=== PATIENT | female | born 1970 | race Hispanic/Latino ===

== ENCOUNTER 2021-08-16 14:09 | Emergency (ER) | payer OTHER ==
--- OUTSIDE RECORDS SUMMARY | 2021-08-16 14:19 | XMS REPORT | Continuity of Care Document ---
:1970 Author Organization [facility] t Address [facility] Quentin Ortiz [address] [place] [address] Care Team Providers Name Role Phone Stefano DELGADO Primary Care Physician Unavailable Mat WRIGHT Attending Clinician Unavailable Jhonny SMITH, Stefano Attending Clinician Radiology Attending Clinician Unavailable RADIOLOGY Attending Clinician Unavailable Lab, Fam Pob I Attending Clinician Unavailable Stefano DELGADO Attending Clinician Unavailable Hitesh Baker DO Attending Clinician Pob, Lab Main Attending Clinician Unavailable Shavonne SMITH Attending Clinician PENNY Attending Clinician Unavailable Unknown Attending Clinician Unavailable Doctor Unassigned, Name Attending Clinician Unavailable SHAVONNE Attending Clinician Unavailable Provider, Urgent Care Attending Clinician Unavailable Smieon TRUCK FARMER Attending Clinician Mar GOOD Attending Clinician Unavailable DANNYNE Attending Clinician Unavailable Penny ALVAREZ Attending Clinician Lion SMITH, Alvino Attending Clinician Silas SMITH Attending Clinician PENNY Admitting Clinician Unavailable Payers Payer Name Policy Type Policy Number Effective Date Expiration Date [facility] [id number] 2020 00:00:00 [facility] - [id number] 2018 OUT OF STATE 00:00:00 Advance Directives Directive Decision Effective Termination Comments Source Date Date Healthcare Agents on N/A [facility] Agent Medical RelationshipCommunicationJose Branch [facility] [phone] (Mobile) Problems Condition Condition Condition Status Onset Resolution Last Treating Co mments Source Name Details Category Date Date Treatment Clinician Date Cervical Cervical Disease Active Unive rs spinal spinal 9-04 ity of stenosis stenosis 00:00: Medical Branch Chronic Chronic Disease Active Univers neck pain neck pain 7-31 ity of 00:00: Medical Branch Cervical Cervical Disease Active Unive rs radiculopa radiculopa 7-31 it y of thy thy 00:00: Medical Branch Dysmenorrh Dysmenorrh Disease Active 2017-09 U nivers ea ea 0-16 ity of 00:: Medical Branch Uterus, Uterus, Disease Active 2017-09 Univers adenomyosi adenomyosi 0-16 it y of s s 00:00: Medical Branch Allergic Allergic Disease Active Unive rs cough cough 9- ity of 00:00: Medical Branch Abdominal Abdominal Disease Active Uni vers pain pain 7-27 ity of 00:00: Medical [facility] Long-term Long-term Disease Active Uni vers use of use of 7-17 ity of Plaquenil Plaquenil [place] [facility] [place] Myalgia Myalgia Disease Active Univers 7-17 ity of 00:00: Medical [facility] Long-term Long-term Disease Active Uni vers use of use of 7-17 ity of Plaquenil Plaquenil 00:[place] [facility] [place] ALT (SGPT) ALT (SGPT) Disease Active U nivers level level 3-29 ity of raised raised 00:00: Medical Branch Prediabete Prediabete Disease Active U nivers s s 3-09 ity of 00:00: Medical Branch Onychomyco Onychomyco Disease Active Overview : Univers sis of sis of 3-08 bilateral ity of toenail toenail 00:00: great toenails Medical Branch Dyspareuni Dyspareuni Disease Active U nivers a in a in 3-08 ity of female female 00:00: Medical Branch 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 Family Family Disease Active 2016-09 Univers history of history of 0-29 it y of heart heart 00:00: [place] disease disease 00 Medical Branch Immunizati Immunizati Disease Active U nivers on on 06-09 ity of counseling counseling 00:00: [place] [facility] Immunizati Immunizati Disease Active U nivers on on 06-09 ity of counseling counseling 00:00: [place] [facility] Spinal Spinal Disease Active Univers pain pain 06-09 ity of 00:00: [place] 00 Medical Branch Cervical Cervical Disease Active Unive rs lymphadeno lymphadeno - it y of patricio patricio 00:00: [place] 00 Medical Branch Fatigue, Fatigue, Disease Active Unive rs unspecifie unspecifie 4-05 it y of d type d type 00:00: [place] [facility] Other Other Disease Active Univers depression depression 4-05 it y of 00:00: [place] 00 Medical Branch Chronic Chronic Disease Active Univers pain of pain of 4-05 ity of both knees both knees 00:00: [place] [facility] Positive Positive Disease Active Unive rs YOCASTA YOCASTA 3-07 ity of (antinucle (antinucle 00:00: [place] ar ar 00 Medical antibody) antibody) Bran ch 1:640 1:640 Arthralgia Arthralgia Disease Active U nivers of of 3-05 ity of multiple multiple 00:00: [place] joints joints 00 Medical Branch Fibromyalg Fibromyalg Disease Active U nivers ia ia 3-05 ity of 00:00: [place] [facility] Perimenopa Perimenopa Disease Active U nivers usal usal 2-07 ity of vasomotor vasomotor 00:[place] symptoms [facility] BV BV Disease Active Univers (bacterial (bacterial 10-12 it y of vaginosis) vaginosis) 00:00: [place] [facility] S/P tubal S/P tubal Disease Active Uni vers ligation ligation 1-24 ity of 00:00: [address] Branch Obesity Obesity Disease Active Univers (BMI (BMI 1-24 ity of 35.0-39.9 35.0-39.9 00:[place]: [place] without without 00 Medical comorbidit comorbidit Br anch y) y) Abnormal Abnormal Disease Active Unive rs uterine uterine 1-24 ity of bleeding bleeding 00:00: [address] Abdominal Abdominal Disease Active Uni vers pain, left pain, left 1-24 it y of lower lower 00:00: [place] quadrant quadrant 00 [facility] Decreased Decreased Disease Active Uni vers libido libido 1-24 ity of 00:00: [place] [facility] S/P tubal S/P tubal Disease Active Uni vers ligation ligation 1-24 ity of 00:00: [address] History of History of Disease Active U nivers 3 3 1-24 it y of sections sections 00:00: [address] Depression Depression Disease Active U nivers 1-13 ity of 00:00: [place] [facility] Branch Acanthosis Acanthosis Disease Active U nivers nigricans nigricans 1-13 ity of 00:00: [address] Allergies, Adverse Reactions, Alerts Allergy Allergy Status Severity Reaction(s) Onset Inactive Treating Comm ents Source Name Type Date Date Clinician NO KNOWN Drug Active Univers ALLERGIE Class ity of S [facility] Family History Family Member Diagnosis Comments Start Date Stop Date Source Father [facility] Mother Cancer [facility] Other Breast Cancer [facility] Sister Cancer [facility] Family member Colon Cancer Universit y of [facility] Family member Ovarian Cancer Univers ity [facility] Family member Uterine Cancer Univers ity of [place] [facility] Social History Social Habit Start Date Stop Date Quantity Comments Source Exposure to Not sure University of SARS-CoV-2 [place] Medical (event) Branch Alcohol intake 2020-12-01 2020-12-01 Current drinker Unive rsity of 00:00:00 00:00:00 of alcohol [place] Medical (finding) Branch Tobacco use and 2020-12-01 2020-12-01 Never used Universit y of exposure 00:00:00 00:00:00 [facility] Alcohol Comment 2019-10-10 2019-10-10 rare Universit y of 00:00:00 00:00:00 [facility] History of 2010-09-12 Cigarette Smoker Universi ty of tobacco use 00:00:00 [facility] [birth year] Universit y of 00:00:00 00:00:00 [facility] Smoking Status Start Date Stop Date Source Former smoker 2020-12-01 00:00:00 2020-12-01 00:00:00 Universi ty of [facility] Medications Ordered Filled Start Stop Current Ordering Indication Dosage Frequency Signature Comments Components Source Medication Medication Date Date Medication? Clinician (SIG) Name Name traMADoL 50 Yes 2745 TAKE 1 Univ ers mg tablet 5-23 TABLET BY ity o f 00:00: MOUTH [place] 00 TWICE Medical DAILY Branch NEEDED Indication s: chronic pain traMADoL 50 2020-0 Yes 2745 TAKE 1 Univ ers mg tablet 3-22 TABLET BY ity o f 00:00: MOUTH [place] 00 TWICE Medical DAILY Branch NEEDED Indication s: chronic pain traMADoL 50 2020-0 Yes 2745 TAKE 1 Univ ers mg tablet 3-22 TABLET BY ity o f 00:00: MOUTH [place] 00 TWICE Medical DAILY Branch NEEDED Indication s: chronic pain traMADoL 50 2020-0 Yes 2745 TAKE 1 Univ ers mg tablet 3-22 TABLET BY ity o f 00:00: MOUTH [place] 00 TWICE Medical DAILY Branch NEEDED Indication s: chronic pain traMADoL 50 2020-0 Yes 2745 TAKE 1 Univ ers mg tablet 3-22 TABLET BY ity o f 00:00: MOUTH [place] 00 TWICE Medical DAILY Branch NEEDED Indication s: chronic pain traMADoL 50 2020-0 Yes 2745 TAKE 1 Univ ers mg tablet 3-22 TABLET BY ity o f 00:00: MOUTH [place] 00 TWICE Medical DAILY Branch NEEDED Indication s: chronic pain traMADoL 50 Yes 2745 TAKE 1 Univ ers mg tablet 3-22 TABLET BY ity o f 00:00: MOUTH [place] 00 TWICE Medical DAILY Branch NEEDED Indication s: chronic pain traMADoL 50 2020-0 2020- No 2745 TAKE 1 Uni vers mg tablet 3-22 05-23 TABLET BY ity of 00:00: 00:00 MOUTH [place] 00 :00 TWICE Medical DAILY Branch NEEDED Indication s: chronic pain traMADoL 50 2019-09 Yes 2745 TAKE 1 Univ ers mg tablet 2-22 TABLET BY ity o f 00:00: MOUTH [place] 00 TWICE Medical DAILY Branch NEEDED Indication s: chronic pain traMADoL 50 2019-09 Yes 2745 TAKE 1 Univ ers mg tablet 2-22 TABLET BY ity o f 00:00: MOUTH [place] 00 TWICE Medical DAILY Branch NEEDED Indication s: chronic pain traMADoL 50 2019-09 Yes 2745 TAKE 1 Univ ers mg tablet 2-22 TABLET BY ity o f 00:00: MOUTH [place] 00 TWICE Medical DAILY Branch NEEDED Indication s: chronic pain traMADoL 50 2019-09 Yes 2745 TAKE 1 Univ ers mg tablet 2-22 TABLET BY ity o f 00:00: MOUTH [place] 00 TWICE Medical DAILY Branch NEEDED Indication s: chronic pain traMADoL 50 2019-09 Yes 2745 TAKE 1 Univ ers mg tablet 2-22 TABLET BY ity o f 00:00: MOUTH [place] 00 TWICE Medical DAILY Branch NEEDED Indication s: chronic pain traMADoL 50 2019-09 Yes 2745 TAKE 1 Univ ers mg tablet 2-22 TABLET BY ity o f 00:00: MOUTH [place] 00 TWICE Medical DAILY Branch NEEDED Indication s: chronic pain traMADoL 50 2019-09 Yes 2745 TAKE 1 Univ ers mg tablet 2-22 TABLET BY ity o f 00:00: MOUTH [place] 00 TWICE Medical DAILY Branch NEEDED Indication s: chronic pain traMADoL 50 2019-09 Yes 2745 TAKE 1 Univ ers mg tablet 2-22 TABLET BY ity o f 00:00: MOUTH [place] 00 TWICE Medical DAILY Branch NEEDED Indication s: chronic pain traMADoL 50 2019-09 Yes 2745 TAKE 1 Univ ers mg tablet 2-22 TABLET BY ity o f 00:00: MOUTH [place] 00 TWICE Medical DAILY Branch NEEDED Indication s: chronic pain traMADoL 50 2019-09 Yes 2745 TAKE 1 Univ ers mg tablet 2-22 TABLET BY ity o f 00:00: MOUTH [place] 00 TWICE Medical DAILY Branch NEEDED Indication s: chronic pain traMADoL 50 2019-09- No 2745 TAKE 1 Uni vers mg tablet 11-03- TABLET BY ity of 00:00: 00:00 MOUTH [place] 00 :00 TWICE Medical DAILY Branch NEEDED Indication s: chronic pain traMADoL 50 2019-09- No 2745 TAKE 1 Uni vers mg tablet 11-03- TABLET BY ity of 00:00: 00:00 MOUTH [place] 00 :00 TWICE Medical DAILY Branch NEEDED Indication s: chronic pain traMADoL 50 2019-09- No 2745 TAKE 1 Uni vers mg tablet 2- TABLET BY ity of 00:00: 00:00 MOUTH [place] 00 :00 TWICE Medical DAILY Branch NEEDED Indication s: chronic pain ergocalcife 2020-1 Yes [id number] Take Univ ers rol, 2-12 50,000 ity of vitamin d2, 00:00: Units [place] 1,250 mcg 00 mouth Medical (50,000 weekly. Branch unit) capsule ergocalcife 2020-1 Yes [id number] Take Univ ers rol, 2-12 50,000 ity of vitamin d2, 00:00: Units [place] 1,250 mcg 00 mouth Medical (50,000 weekly. Branch unit) capsule ergocalcife 2020-1 Yes [id number] Take Univ ers rol, 2-12 50,000 ity of vitamin d2, 00:00: Units by [place] 1,250 mcg 00 mouth Medical (50,000 weekly. Branch unit) capsule ergocalcife 2020-1 Yes [id number] Take Univ ers rol, 2-12 50,000 ity of vitamin d2, 00:00: Units by [place] 1,250 mcg 00 mouth Medical (50,000 weekly. Branch unit) capsule ergocalcife 2020-1 Yes [id number] Take Univ ers rol, 2-12 50,000 ity of vitamin d2, 00:00: Units by [place] 1,250 mcg 00 mouth Medical (50,000 weekly. Branch unit) capsule ergocalcife 2020-1 Yes [id number] Take Univ ers rol, 2-12 50,000 ity of vitamin d2, 00:00: Units by [place] 1,250 mcg 00 mouth Medical (50,000 weekly. Branch unit) capsule ergocalcife 2020-1 Yes [id number] Take Univ ers rol, 2-12 50,000 ity of vitamin d2, 00:00: Units [place] 1,250 mcg 00 mouth Medical (50,000 weekly. Branch unit) capsule ergocalcife 2020-1 Yes [id number] Take Univ ers rol, 2-12 50,000 ity of vitamin d2, 00:00: Units by [place] 1,250 mcg 00 mouth Medical (50,000 weekly. Branch unit) capsule ergocalcife 2020-1 Yes [id number] Take Univ ers rol, 2-12 50,000 ity of vitamin d2, 00:00: Units by [place] 1,250 mcg 00 mouth Medical (50,000 weekly. Branch unit) capsule ergocalcife 2020-1 Yes [id number] Take Univ ers rol, 2-12 50,000 ity of vitamin d2, 00:00: Units by [place] 1,250 mcg 00 mouth Medical (50,000 weekly. Branch unit) capsule ergocalcife 2020-1 Yes [id number] Take Univ ers rol, 2-12 50,000 ity of vitamin d2, 00:00: Units by [place] 1,250 mcg 00 mouth Medical (50,000 weekly. Branch unit) capsule ergocalcife 2020-1 Yes [id number] Take Univ ers rol, 2-12 50,000 ity of vitamin d2, 00:00: Units by [place] 1,250 mcg 00 mouth Medical (50,000 weekly. Branch unit) capsule ergocalcife 2020-1 Yes [id number] Take Univ ers rol, 2-12 50,000 ity of vitamin d2, 00:00: Units by [place] 1,250 mcg 00 mouth Medical (50,000 weekly. Branch unit) capsule ergocalcife 2020-1 Yes [id number] Take Univ ers rol, 2-12 50,000 ity of vitamin d2, 00:00: Units by [place] 1,250 mcg 00 mouth Medical (50,000 weekly. Branch unit) capsule ergocalcife 2020-1 Yes [id number] Take Univ ers rol, 2-12 50,000 ity of vitamin d2, 00:00: Units by [place] 1,250 mcg 00 mouth Medical (50,000 weekly. Branch unit) capsule ergocalcife 2020-1 Yes [id number] Take Univ ers rol, 2-12 50,000 ity of vitamin d2, 00:00: Units by [place] 1,250 mcg 00 mouth Medical (50,000 weekly. Branch unit) capsule ergocalcife 2019- Yes [id number] Take [facility] ers rol, 2-12 50,000 ity of vitamin d2, 00:00: Units by [place] 1,250 mcg 00 mouth Medical (50,000 weekly. Branch unit) capsule naproxen 2019-09 2020- No [id number] 500mg Take 1 U nivers 500 mg 09-13 11-17 tablet by ity of tablet 00:00: 05:59 mouth 2 [place] 00 :00 (two) Medical times Branch daily with meals for 14 days. TRAMADOL 50 2019-0 Yes [id number] TAKE 1 Univers mg tablet 9-21 TABLET BY ity o f 00:00: MOUTH [place] 00 TWICE Medical DAILY Branch NEEDED TRAMADOL 50 2019-0 Yes [id number] TAKE 1 Univers mg tablet 9-21 TABLET BY ity o f 00:00: MOUTH [place] 00 TWICE Medical DAILY Branch NEEDED TRAMADOL 50 2019-0 Yes [id number] TAKE 1 Univers mg tablet 9-21 TABLET BY ity o f 00:00: MOUTH [place] 00 TWICE Medical DAILY Branch NEEDED TRAMADOL 50 2020-0 Yes [id number] TAKE 1 Univers mg tablet 9-21 TABLET BY ity o f 00:00: MOUTH [place] 00 TWICE Medical DAILY Branch NEEDED TRAMADOL 50 2020-0 Yes [id number] TAKE 1 Univers mg tablet 9-21 TABLET BY ity o f 00:00: MOUTH [place] 00 TWICE Medical DAILY Branch NEEDED TRAMADOL 50 2019-0 2020- No [id number] TAKE 1 Univers mg tablet 9-21 12-22 TABLET BY ity of 00:00: 00:00 MOUTH [place] 00 :00 TWICE Medical DAILY Branch NEEDED TRAMADOL 50 2020-0 2020- No [id number] TAKE 1 Univers mg tablet 9-21 12-22 TABLET BY ity of 00:00: 00:00 MOUTH [place] 00 :00 TWICE Medical DAILY Branch NEEDED MONTELUKAST 2020-0 Yes [id number] 10mg TAKE 1 Univers 10 mg 8-06 TABLET BY ity of tablet 00:00: MOUTH [place] 00 EVERY Medical EVENING Branch MONTELUKAST 2020-0 Yes [id number] 10mg TAKE 1 Univers 10 mg 8-06 TABLET BY ity of tablet 00:00: MOUTH [place] 00 EVERY Medical EVENING Branch MONTELUKAST 2020-0 Yes [id number] 10mg TAKE 1 Univers 10 mg 8-06 TABLET BY ity of tablet 00:00: MOUTH [place] 00 EVERY Medical EVENING Branch MONTELUKAST 2020-0 Yes [id number] 10mg TAKE 1 Univers 10 mg 8-06 TABLET BY ity of tablet 00:00: MOUTH 00 EVERY Medical EVENING Branch MONTELUKAST 2020-0 Yes [id number] 10mg TAKE 1 Univers 10 mg 8-06 TABLET BY ity of tablet 00:00: MOUTH [place] 00 EVERY Medical EVENING Branch MONTELUKAST 2020-0 Yes [id number] 10mg TAKE 1 Univers 10 mg 8-06 TABLET BY ity of tablet 00:00: MOUTH 00 EVERY Medical EVENING Branch MONTELUKAST 2020-0 Yes [id number] 10mg TAKE 1 Univers 10 mg 8-06 TABLET BY ity of tablet 00:00: MOUTH 00 EVERY Medical EVENING Branch MONTELUKAST 2020-0 2020- No [id number] 10mg TAKE 1 Univers 10 mg 8-06 12-22 TABLET BY ity of tablet 00:00: 00:00 MOUTH [place] 00 :00 EVERY Medical EVENING Branch MONTELUKAST 2020-0 2020- No [id number] 10mg TAKE 1 Univers 10 mg 8-06 12-22 TABLET BY ity of tablet 00:00: 00:00 MOUTH [place] 00 :00 EVERY Medical EVENING Branch buPROPion 2020-0 Yes [id number] 200mg Take 1 Univers 200 mg 12 7-30 tablet by ity o f hr tablet 00:00: mouth 2 (two) Medical times Branch daily. methocarbam 2020-0 Yes [id number] 500mg Take 1 Univers ol 500 mg 7-30 tablet by ity o f tablet 00:00: mouth 4 (four) Medical times Branch daily as needed (muscle pain or spasm). buPROPion 2020-0 Yes [id number] 200mg Take 1 Univers 200 mg 12 7-30 tablet by ity o f hr tablet 00:00: mouth 2 00 (two) Medical times Branch daily. methylPREDN 2020-0 Yes [id number] Follow Univers ISolone 4 7-30 package ity of mg tablets 00:00: directions [place] [facility] methocarbam 2020-0 Yes [id number] 500mg Take 1 Univers ol 500 mg 7-30 tablet by ity o f tablet 00:00: mouth 4 (four) Medical times Branch daily as needed (muscle pain or spasm). buPROPion 2020-0 Yes [id number] 200mg Take 1 Univers 200 mg 12 7-30 tablet by ity o f hr tablet 00:00: mouth 2 (two) Medical times Branch daily. methylPREDN 2020-0 Yes [id number] Follow Univers ISolone 4 7-30 package ity of mg tablets 00:00: directions [facility] Branch methocarbam 2020-0 Yes [id number] 500mg Take 1 Univers ol 500 mg 7-30 tablet by ity o f tablet 00:00: mouth (four) Medical times Branch daily as needed (muscle pain or spasm). buPROPion 2020-0 Yes [id number] 200mg Take 1 Univers 200 mg 12 7-30 tablet by ity o f hr tablet 00:00: mouth 2 (two) Medical times Branch daily. methylPREDN 2020-0 Yes [id number] Follow Univers ISolone 4 7-30 package ity of mg tablets 00:00: [facility] Branch methocarbam 2020-0 Yes [id number] 500mg Take 1 Univers ol 500 mg 7-30 tablet by ity o f tablet 00:00: mouth () Medical times Branch daily as needed (muscle pain or spasm). buPROPion 2020-0 Yes [id number] 200mg Take 1 Univers 200 mg 12 7-30 tablet by ity o f hr tablet 00:00: mouth (two) Medical times Branch daily. methylPREDN 2020-0 Yes [id number] Follow Univers ISolone 4 7-30 package ity of mg tablets 00:00: [facility] Branch methocarbam 2020-0 Yes [id number] 500mg Take 1 Univers ol 500 mg 7-30 tablet by ity o f tablet 00:00: mouth (four) Medical times Branch daily as needed (muscle pain or spasm). buPROPion 2020-0 Yes [id number] 200mg Take 1 Univers 200 mg 12 7-30 tablet by ity o f hr tablet 00:00: mouth 2 (two) Medical times Branch daily. methylPREDN 2020-0 Yes [id number] Follow Univers ISolone 4 7-30 package ity of mg tablets 00:00: [facility] methocarbam 2020-0 Yes [id number] 500mg Take 1 Univers ol 500 mg 7-30 tablet by ity o f tablet 00:00: mouth (four) Medical times Branch daily as needed (muscle pain or spasm). buPROPion 2020-0 Yes [id number] 200mg Take 1 Univers 200 mg 12 7-30 tablet by ity o f hr tablet 00:00: mouth 2 (two) Medical times Branch daily. methylPREDN 2020-0 Yes [id number] Follow Univers ISolone 4 7-30 package ity of mg tablets 00:00: [facility] Branch methocarbam 2020-0 Yes [id number] 500mg Take 1 Univers ol 500 mg 7-30 tablet by ity o f tablet 00:00: mouth (four) Medical times Branch daily as needed (muscle pain or spasm). buPROPion 2020-0 Yes [id number] 200mg Take 1 Univers 200 mg 12 7-30 tablet by ity o f hr tablet 00:00: mouth (two) Medical times Branch daily. methylPREDN 2020-0 Yes [id number] Follow Univers ISolone 4 7-30 package ity of mg tablets 00:00: [facility] Branch methocarbam 2020-0 Yes [id number] 500mg Take 1 Univers ol 500 mg 7-30 tablet by ity o f tablet 00:00: mouth (four) Medical times [place] daily as needed (muscle pain or spasm). buPROPion 2020-0 Yes [id number] 200mg Take 1 Univers 200 mg 12 7-30 tablet by ity o f hr tablet 00:00: mouth (two) Medical times Branch daily. methylPREDN 2020-0 Yes [id number] Follow Univers ISolone 4 7-30 package ity of mg tablets 00:00: [facility] Branch methocarbam 2020-0 Yes [id number] 500mg Take 1 Univers ol 500 mg 7-30 tablet by ity o f tablet 00:00: mouth (four) Medical times Branch daily as needed (muscle pain or spasm). buPROPion 2020-0 Yes [id number] 200mg Take 1 Univers 200 mg 12 7-30 tablet by ity o f hr tablet 00:00: mouth 2 (two) Medical times Branch daily. methylPREDN 2020-0 Yes [id number] Follow Univers ISolone 4 7-30 package ity of mg tablets 00:00: [facility] Medical Branch methocarbam 2020-0 Yes [id number] 500mg Take 1 Univers ol 500 mg 7-30 tablet by ity o f tablet 00:00: mouth (four) Medical times Branch daily as needed (muscle pain or spasm). buPROPion 2020-0 Yes [id number] 200mg Take 1 Univers 200 mg 12 7-30 tablet by ity o f hr tablet 00:00: mouth (two) Medical times Branch daily. methylPREDN 2020-0 Yes [id number] Follow Univers ISolone 4 7-30 package ity of mg tablets 00:00: [facility] Branch methocarbam 2020-0 Yes [id number] 500mg Take 1 Univers ol 500 mg 7-30 tablet by ity o f tablet 00:00: mouth () Medical times Branch daily as needed (muscle pain or spasm). buPROPion 2020-0 Yes [id number] 200mg Take 1 Univers 200 mg 12 7-30 tablet by ity o f hr tablet 00:00: mouth (two) Medical times Branch daily. methylPREDN 2020-0 Yes [id number] Follow Univers ISolone 4 7-30 package ity of mg tablets 00:00: [facility] Medical Branch methocarbam 2020-0 Yes [id number] 500mg Take 1 Univers ol 500 mg 7-30 tablet by ity o f tablet 00:00: mouth (four) Medical times Branch daily as needed (muscle pain or spasm). buPROPion 2020-0 Yes [id number] 200mg Take 1 Univers 200 mg 12 7-30 tablet by ity o f hr tablet 00:00: mouth (two) Medical times Branch daily. methocarbam 2020-0 Yes [id number] 500mg Take 1 Univers ol 500 mg 7-30 tablet by ity o f tablet 00:00: mouth (four) Medical times Branch daily as needed (muscle pain or spasm). buPROPion 2020-0 Yes [id number] 200mg Take 1 Univers 200 mg 12 7-30 tablet by ity o f hr tablet 00:00: mouth (two) Medical times Branch daily. methocarbam 2020-0 Yes [id number] 500mg Take 1 Univers ol 500 mg 7-30 tablet by ity o f tablet 00:00: mouth (four) Medical times Branch daily as needed (muscle pain or spasm). buPROPion 2020-0 Yes [id number] 200mg Take 1 Univers 200 mg 12 7-30 tablet by ity o f hr tablet 00:00: mouth (two) Medical times Branch daily. methocarbam 2020-0 Yes [id number] 500mg Take 1 Univers ol 500 mg 7-30 tablet by ity o f tablet 00:00: mouth (four) Medical times Branch daily as needed (muscle pain or spasm). buPROPion 2020-0 Yes [id number] 200mg Take 1 Univers 200 mg 12 7-30 tablet by ity o f hr tablet 00:00: mouth (two) Medical times Branch daily. methocarbam 2020-0 Yes [id number] 500mg Take 1 Univers ol 500 mg 7-30 tablet by ity o f tablet 00:00: mouth (four) Medical times Branch daily as needed (muscle pain or spasm). buPROPion 2020-0 Yes [id number] 200mg Take 1 Univers 200 mg 12 7-30 tablet by ity o f hr tablet 00:00: mouth (two) Medical times Branch daily. methocarbam 2020-0 Yes [id number] 500mg Take 1 Univers ol 500 mg 7-30 tablet by [facility] o f tablet 00:00: mouth (four) Medical times Branch daily as needed (muscle pain or spasm). buPROPion 2020-0 Yes [id number] 200mg Take 1 [facility] 200 mg 12 7-30 tablet by [facility] o f hr tablet 00:00: mouth (two) Medical times Branch daily. methocarbam 2020-0 Yes [id number] 500mg Take 1 [facility] ol 500 mg 7-30 tablet by ity o f tablet 00:00: mouth (four) Medical times Branch daily as needed (muscle pain or spasm). buPROPion 2020-0 Yes [id number] 200mg Take 1 [facility] 200 mg 12 7-30 tablet by ity o f hr tablet 00:00: mouth (two) Medical times Branch daily. methocarbam 2020-0 Yes [id number] 500mg Take 1 [facility] ol 500 mg 7-30 tablet by ity o f tablet 00:00: mouth (four) Medical times Branch daily as needed (muscle pain or spasm). buPROPion 2020-0 Yes [id number] 200mg Take 1 [facility] 200 mg 12 7-30 tablet by ity o f hr tablet 00:00: mouth (two) Medical times Branch daily. methocarbam 2020-0 Yes [id number] 500mg Take 1 [facility] ol 500 mg 7-30 tablet by ity o f tablet 00:00: mouth (four) Medical times Branch daily as needed (muscle pain or spasm). buPROPion 2020-0 Yes [id number] 200mg Take 1 [facility] 200 mg 12 7-30 tablet by ity o f hr tablet 00:00: mouth (two) Medical times Branch daily. methocarbam 2020-0 Yes [id number] 500mg Take 1 [facility] ol 500 mg 7-30 tablet by ity o f tablet 00:00: mouth (four) Medical times Branch daily as needed (muscle pain or spasm). buPROPion 2020-0 Yes [id number] 200mg Take 1 [facility] 200 mg 12 7-30 tablet by ity o f hr tablet 00:00: mouth (two) Medical times Branch daily. methocarbam 2020-0 Yes [id number] 500mg Take 1 [facility] ol 500 mg 7-30 tablet by ity o f tablet 00:00: mouth (four) Medical times Branch daily as needed (muscle pain or spasm). buPROPion 2020-0 Yes [id number] 200mg Take 1 [facility] 200 mg 12 7-30 tablet by ity o f hr tablet 00:00: mouth (two) Medical times Branch daily. methocarbam 2020-0 Yes [id number] 500mg Take 1 [facility] ol 500 mg 7-30 tablet by ity o f tablet 00:00: mouth (four) Medical times Branch daily as needed (muscle pain or spasm). buPROPion 2020-0 Yes [id number] 200mg Take 1 [facility] 200 mg 12 7-30 tablet by ity o f hr tablet 00:00: mouth (two) Medical times Branch daily. methocarbam 2020-0 Yes [id number] 500mg Take 1 [facility] ol 500 mg 7-30 tablet by ity o f tablet 00:00: mouth (four) Medical times Branch daily as needed (muscle pain or spasm). buPROPion 2020-0 Yes [id number] 200mg Take 1 [facility] 200 mg 12 7-30 tablet by ity o f hr tablet 00:00: mouth 2 (two) Medical times Branch daily. methocarbam 2020-0 Yes [id number] 500mg Take 1 [facility] ol 500 mg 7-30 tablet by ity o f tablet 00:00: mouth (four) Medical times Branch daily as needed (muscle pain or spasm). buPROPion 2020-0 Yes [id number] 200mg Take 1 [facility] 200 mg 12 7-30 tablet by ity o f hr tablet 00:00: mouth (two) Medical times Branch daily. methocarbam 2020-0 Yes [id number] 500mg Take 1 [facility] ol 500 mg 7-30 tablet by ity o f tablet 00:00: mouth (four) Medical times Branch daily as needed (muscle pain or spasm). buPROPion 2020-0 Yes [id number] 200mg Take 1 [facility] 200 mg 12 7-30 tablet by ity o f hr tablet 00:00: mouth (two) Medical times Branch daily. methocarbam 2020-0 Yes [id number] 500mg Take 1 [facility] ol 500 mg 7-30 tablet by ity o f tablet 00:00: mouth (four) Medical times Branch daily as needed (muscle pain or spasm). buPROPion 2020-0 Yes [id number] 200mg Take 1 [facility] 200 mg 12 7-30 tablet by ity o f hr tablet 00:00: mouth (two) Medical times Branch daily. methocarbam 2020-0 Yes [id number] 500mg Take 1 [facility] ol 500 mg 7-30 tablet by ity o f tablet 00:00: mouth (four) Medical times Branch daily as needed (muscle pain or spasm). methylPREDN 2020-0 2020- No [id number] Follow [facility] ISolone 4 7-30 09-02 package [facility] of mg tablets 00:00: 00:00 directions [place] 00 :00 Medical Branch methylPREDN 2020-0 2020- No [id number] Follow [facility] ISolone 4 7-30 09-02 package [facility] of mg tablets 00:00: 00:00 directions [place] 00 :00 Medical Branch TRAZODONE 2020-0 Yes [id number] TAKE 1/2 [facility] 50 mg 7-01 TO 1 [facility] of tablet 00:00: TABLET BY [place] 00 MOUTH AT Medical BEDTIME Branch NEEDED FOR INSOMNIA TRAZODONE 2020-0 Yes [id number] TAKE 1/2 [facility] 50 mg 7-01 TO 1 [facility] of tablet 00:00: TABLET BY [place] 00 MOUTH AT Medical BEDTIME Branch NEEDED FOR INSOMNIA TRAZODONE 2020-0 Yes [id number] TAKE 1/2 [facility] 50 mg 7-01 TO 1 [facility]y of tablet 00:00: TABLET BY [place] 00 MOUTH AT Medical BEDTIME Branch NEEDED FOR INSOMNIA TRAZODONE 2020-0 Yes [id number] TAKE 1/2 [facility] 50 mg 7-01 TO 1 [facility] of tablet 00:00: TABLET BY [place] 00 MOUTH AT Medical BEDTIME Branch NEEDED FOR INSOMNIA TRAZODONE 2020-0 Yes [id number] TAKE 1/2 [facility] 50 mg 7-01 TO 1 [facility] of tablet 00:00: TABLET BY [place] 00 MOUTH AT Medical BEDTIME Branch NEEDED FOR INSOMNIA TRAZODONE 2020-0 Yes [id number] TAKE 1/2 [facility] 50 mg 7-01 TO 1 [facility]y of tablet 00:00: TABLET BY [place] 00 MOUTH AT Medical BEDTIME Branch NEEDED FOR INSOMNIA TRAZODONE 2020-0 Yes [id number] TAKE 1/2 [facility] 50 mg 7-01 TO 1 [facility]y of tablet 00:00: TABLET BY [place] 00 MOUTH AT Medical BEDTIME Branch NEEDED FOR INSOMNIA TRAZODONE 2020-0 Yes [id number] TAKE 1/2 [facility] 50 mg 7-01 TO 1 [facility] of tablet 00:00: TABLET BY [place] 00 MOUTH AT Medical BEDTIME Branch NEEDED FOR INSOMNIA TRAZODONE 2020-0 Yes [id number] TAKE 1/2 [facility] 50 mg 7-01 TO 1 [facility] of tablet 00:00: TABLET BY [place] 00 MOUTH AT Medical BEDTIME Branch NEEDED FOR INSOMNIA TRAZODONE 2020-0 Yes [id number] TAKE 1/2 [facility] 50 mg 7-01 TO 1 [facility] of tablet 00:00: TABLET BY [place] 00 MOUTH AT Medical BEDTIME Branch NEEDED FOR INSOMNIA TRAZODONE 2020-0 Yes [id number] TAKE 1/2 [facility] 50 mg 7-01 TO 1 [facility] of tablet 00:00: TABLET BY [place] 00 MOUTH AT Medical BEDTIME Branch NEEDED FOR INSOMNIA TRAZODONE 2020-0 Yes [id number] TAKE 1/2 [facility] 50 mg 7-01 TO 1 [facility] of tablet 00:00: TABLET BY [place] 00 MOUTH AT Medical BEDTIME Branch NEEDED FOR INSOMNIA TRAZODONE 2020-0 Yes [id number] TAKE 1/2 [facility] 50 mg 7-01 TO 1 [facility] of tablet 00:00: TABLET BY [place] 00 MOUTH AT Medical BEDTIME Branch NEEDED FOR INSOMNIA TRAZODONE 2020-0 Yes [id number] TAKE 1/2 [facility] 50 mg 7-01 TO 1 [facility]y of tablet 00:00: TABLET BY [place] 00 MOUTH AT Medical BEDTIME Branch NEEDED FOR INSOMNIA TRAZODONE 2020-0 Yes [id number] TAKE 1/2 [facility] 50 mg 7-01 TO 1 [facility]y of tablet 00:00: TABLET BY [place] 00 MOUTH AT Medical BEDTIME Branch NEEDED FOR INSOMNIA TRAZODONE 2020-0 Yes [id number] TAKE 1/2 [facility] 50 mg 7-01 TO 1 [facility]y of tablet 00:00: TABLET BY [place] 00 MOUTH AT Medical BEDTIME Branch NEEDED FOR INSOMNIA TRAZODONE 2020-0 Yes [id number] TAKE 1/2 [facility] 50 mg 7-01 TO 1 [facility]y of tablet 00:00: TABLET BY [place] 00 MOUTH AT Medical BEDTIME Branch NEEDED FOR INSOMNIA TRAZODONE 2020-0 Yes [id number] TAKE 1/2 [facility] 50 mg 7-01 TO 1 [facility]y of tablet 00:00: TABLET BY [place] 00 MOUTH AT Medical BEDTIME Branch NEEDED FOR INSOMNIA TRAZODONE 2020-0 Yes [id number] TAKE 1/2 [facility] 50 mg 7-01 TO 1 [facility]y of tablet 00:00: TABLET BY [place] 00 MOUTH AT Medical BEDTIME Branch NEEDED FOR INSOMNIA TRAZODONE 2020-0 Yes [id number] TAKE 1/2 [facility] 50 mg 7-01 TO 1 [facility]y of tablet 00:00: TABLET BY [place] 00 MOUTH AT Medical BEDTIME Branch NEEDED FOR INSOMNIA TRAZODONE 2020-0 Yes [id number] TAKE 1/2 [facility] 50 mg 7-01 TO 1 [facility]y of tablet 00:00: TABLET BY [place] 00 MOUTH AT Medical BEDTIME Branch NEEDED FOR INSOMNIA TRAZODONE 2020-0 Yes [id number] TAKE 1/2 [facility] 50 mg 7-01 TO 1 [facility]y of tablet 00:00: TABLET BY [place] 00 MOUTH AT Medical BEDTIME Branch NEEDED FOR INSOMNIA TRAZODONE 2020-0 Yes [id number] TAKE 1/2 [facility] 50 mg 7-01 TO 1 [facility] of tablet 00:00: TABLET BY [place] 00 MOUTH AT Medical BEDTIME Branch NEEDED FOR INSOMNIA TRAZODONE 2020-0 Yes [id number] TAKE 1/2 [facility] 50 mg 7-01 TO 1 [facility] of tablet 00:00: TABLET BY [place] 00 MOUTH AT Medical BEDTIME Branch NEEDED FOR INSOMNIA TRAZODONE 2020-0 Yes [id number] TAKE 1/2 [facility] 50 mg 7-01 TO 1 [facility]y of tablet 00:00: TABLET BY [place] 00 MOUTH AT Medical BEDTIME Branch NEEDED FOR INSOMNIA TRAZODONE 2020-0 Yes [id number] TAKE 1/2 [facility] 50 mg 7-01 TO 1 [facility] of tablet 00:00: TABLET BY [place] MOUTH AT Medical BEDTIME Branch NEEDED FOR INSOMNIA TRAZODONE 2020-0 Yes [id number] TAKE 1/2 [facility] 50 mg 7-01 TO 1 [facility]y of tablet 00:00: TABLET BY [place] 00 MOUTH AT Medical BEDTIME Branch NEEDED FOR INSOMNIA TRAZODONE 2020-0 Yes [id number] TAKE 1/2 [facility] 50 mg 7-01 TO 1 [facility]y of tablet 00:00: TABLET BY [place] 00 MOUTH AT Medical BEDTIME Branch NEEDED FOR INSOMNIA TRAZODONE 2020-0 Yes [id number] TAKE 1/2 [facility] 50 mg 7-01 TO 1 [facility]y of tablet 00:00: TABLET BY [place] MOUTH AT Medical BEDTIME Branch NEEDED FOR INSOMNIA TRAZODONE 2020-0 Yes [id number] TAKE 1/2 [facility] 50 mg 7-01 TO 1 [facility]y of tablet 00:00: TABLET BY [place] 00 MOUTH AT Medical BEDTIME Branch NEEDED FOR INSOMNIA TRAMADOL 50 2020-0 Yes [id number] TAKE 1 [facility] mg tablet 6-16 TABLET BY ity o f 00:00: MOUTH TWICE Medical DAILY Branch NEEDED TRAMADOL 50 2020-0 Yes [id number] TAKE 1 [facility] mg tablet 6-16 TABLET BY ity o f 00:00: MOUTH TWICE Medical DAILY Branch NEEDED TRAMADOL 50 2020-0 Yes [id number] TAKE 1 [facility] mg tablet 6-16 TABLET BY ity o f 00:00: MOUTH [place] 00 TWICE Medical DAILY Branch NEEDED TRAMADOL 50 2020-0 Yes [id number] TAKE 1 [facility] mg tablet 6-16 TABLET BY ity o f 00:00: MOUTH [place] 00 TWICE Medical DAILY Branch NEEDED TRAMADOL 50 2020-0 Yes [id number] TAKE 1 [facility] mg tablet 6-16 TABLET BY ity o f 00:00: MOUTH [place] 00 TWICE Medical DAILY Branch NEEDED TRAMADOL 50 2020-0 Yes [id number] TAKE 1 [facility] mg tablet 6-16 TABLET BY ity o f 00:00: MOUTH [place] 00 TWICE Medical DAILY Branch NEEDED TRAMADOL 50 2020-0 Yes [id number] TAKE 1 [facility] mg tablet 6-16 TABLET BY ity o f 00:00: MOUTH [place] 00 TWICE Medical DAILY Branch NEEDED TRAMADOL 50 2020-0 Yes [id number] TAKE 1 [facility] mg tablet 6-16 TABLET BY ity o f 00:00: MOUTH [place] 00 TWICE Medical DAILY Branch NEEDED TRAMADOL 50 2020-0 Yes [id number] TAKE 1 [facility] mg tablet 6-16 TABLET BY ity o f 00:00: MOUTH [place] 00 TWICE Medical DAILY Branch NEEDED TRAMADOL 50 2020-0 2020- No [id number] TAKE 1 [facility] mg tablet 6-16 09-21 TABLET BY ity of 00:00: 00:00 MOUTH [place] 00 :00 TWICE Medical DAILY Branch NEEDED sulfamethox 2020-0 2020- No [id number] 1{tbl} Take 1 [facility] azole-trime 4-30 05-08 tablet by it y of thoprim 00:00: 04:59 mouth 2 [place] 800-160 mg 00 :00 (two) Medical per tablet times Branch daily for 7 days. busPIRone 2020-0 Yes [id number] 15mg Take 1 [facility] 15 mg 4-16 tablet by ity of tablet 00:00: mouth 2 [place] 00 (two) Medical times Branch daily as needed (anxiety). busPIRone 2020-0 Yes [id number] 15mg Take 1 [facility] 15 mg 4-16 tablet by ity of tablet 00:00: mouth 2 [place] 00 (two) Medical times Branch daily as needed (anxiety). busPIRone 2020-0 Yes [id number] 15mg Take 1 [facility] nivers 15 mg 4-16 tablet by ity of tablet 00:00: mouth 2 [place] 00 (two) Medical times Branch daily as needed (anxiety). busPIRone 2020-0 Yes [id number] 15mg Take 1 [facility] nivers 15 mg 4-16 tablet by ity of tablet 00:00: mouth 2 (two) Medical times Branch daily as needed (anxiety). busPIRone 2020-0 Yes [id number] 15mg Take 1 [facility] nivers 15 mg 4-16 tablet by ity of tablet 00:00: mouth 2 (two) Medical times Branch daily as needed (anxiety). busPIRone 2020-0 Yes [id number] 15mg Take 1 [facility] nivers 15 mg 4-16 tablet by ity of tablet 00:00: mouth (two) Medical times Branch daily as needed (anxiety). busPIRone 2020-0 Yes [id number] 15mg Take 1 [facility] nivers 15 mg 4-16 tablet by ity of tablet 00:00: mouth (two) Medical times Branch daily as needed (anxiety). busPIRone 2020-0 Yes [id number] 15mg Take 1 [facility] nivers 15 mg 4-16 tablet by ity of tablet 00:00: mouth (two) Medical times Branch daily as needed (anxiety). busPIRone 2020-0 Yes [id number] 15mg Take 1 [facility] nivers 15 mg 4-16 tablet by ity of tablet 00:00: mouth (two) Medical times Branch daily as needed (anxiety). busPIRone 2020-0 Yes [id number] 15mg Take 1 [facility] nivers 15 mg 4-16 tablet by ity of tablet 00:00: mouth (two) Medical times Branch daily as needed (anxiety). busPIRone 2020-0 Yes [id number] 15mg Take 1 [facility] nivers 15 mg 4-16 tablet by ity of tablet 00:00: mouth 2 (two) Medical times Branch daily as needed (anxiety). busPIRone 2020-0 Yes [id number] 15mg Take 1 [facility] nivers 15 mg 4-16 tablet by ity of tablet 00:00: mouth 2 (two) Medical times Branch daily as needed (anxiety). busPIRone 2020-0 Yes [id number] 15mg Take 1 [facility] nivers 15 mg 4-16 tablet by ity of tablet 00:00: mouth 2 (two) Medical times Branch daily as needed (anxiety). busPIRone 2020-0 Yes [id number] 15mg Take 1 [facility] n[facility] 15 mg 4-16 tablet by ity of tablet 00:00: mouth (two) Medical times Branch daily as needed (anxiety). busPIRone 2020-0 Yes [id number] 15mg Take 1 [facility] n[facility] 15 mg 4-16 tablet by ity of tablet 00:00: mouth 2 (two) Medical times Branch daily as needed (anxiety). busPIRone 2020-0 Yes [id number] 15mg Take 1 [facility] nivers 15 mg 4-16 tablet by ity of tablet 00:00: mouth (two) Medical times Branch daily as needed (anxiety). busPIRone 2020-0 Yes [id number] 15mg Take 1 [facility] n[facility] 15 mg 4-16 tablet by ity of tablet 00:00: mouth (two) Medical times Branch daily as needed (anxiety). busPIRone 2020-0 Yes [id number] 15mg Take 1 [facility] n[facility] 15 mg 4-16 tablet by ity of tablet 00:00: mouth (two) Medical times Branch daily as needed (anxiety). busPIRone 2020-0 Yes [id number] 15mg Take 1 [facility] nivers 15 mg 4-16 tablet by ity of tablet 00:00: mouth (two) Medical times Branch daily as needed (anxiety). busPIRone 2020-0 Yes [id number] 15mg Take 1 [facility] nivers 15 mg 4-16 tablet by ity of tablet 00:00: mouth (two) Medical times Branch daily as needed (anxiety). busPIRone 2020-0 Yes [id number] 15mg Take 1 [facility] nivers 15 mg 4-16 tablet by ity of tablet 00:00: mouth 2 (two) Medical times Branch daily as needed (anxiety). busPIRone 2020-0 Yes [id number] 15mg Take 1 [facility] nivers 15 mg 4-16 tablet by ity of tablet 00:00: mouth 2 00 (two) Medical times Branch daily as needed (anxiety). busPIRone 2020-0 Yes [id number] 15mg Take 1 [facility] nivers 15 mg 4-16 tablet by ity of tablet 00:00: mouth 2 00 (two) Medical times Branch daily as needed (anxiety). busPIRone 2020-0 Yes [id number] 15mg Take 1 [facility] nivers 15 mg 4-16 tablet by ity of tablet 00:00: mouth (two) Medical times Branch daily as needed (anxiety). busPIRone 2020-0 Yes [id number] 15mg Take 1 [facility] nivers 15 mg 4-16 tablet by ity of tablet 00:00: mouth (two) Medical times Branch daily as needed (anxiety). busPIRone 2020-0 Yes [id number] 15mg Take 1 [facility] nivers 15 mg 4-16 tablet by ity of tablet 00:00: mouth (two) Medical times Branch daily as needed (anxiety). busPIRone 2020-0 Yes [id number] 15mg Take 1 [facility] nivers 15 mg 4-16 tablet by ity of tablet 00:00: mouth (two) Medical times Branch daily as needed (anxiety). busPIRone 2020-0 Yes [id number] 15mg Take 1 [facility] n[facility] 15 mg 4-16 tablet by ity of tablet 00:00: mouth (two) Medical times Branch daily as needed (anxiety). busPIRone 2020-0 Yes [id number] 15mg Take 1 [facility] 15 mg 4-16 tablet by ity of tablet 00:00: mouth (two) Medical times Branch daily as needed (anxiety). busPIRone 2020-0 Yes [id number] 15mg Take 1 [facility] 15 mg 4-16 tablet by ity of tablet 00:00: mouth (two) Medical times Branch daily as needed (anxiety). busPIRone 2020-0 Yes [id number] 15mg Take 1 [facility] n[facility] 15 mg 4-16 tablet by ity of tablet 00:00: mouth (two) Medical times Branch daily as needed (anxiety). busPIRone 2020-0 Yes [id number] 15mg Take 1 [facility] 15 mg 4-16 tablet by ity of tablet 00:00: mouth 2 (two) Medical times Branch daily as needed (anxiety). busPIRone 2020-0 Yes [id number] 15mg Take 1 [facility] 15 mg 4-16 tablet by ity of tablet 00:00: mouth 2 00 (two) Medical times Branch daily as needed (anxiety). busPIRone 2020-0 Yes [id number] 15mg Take 1 [facility] nivers 15 mg 4-16 tablet by ity of tablet 00:00: mouth 2 00 (two) Medical times Branch daily as needed (anxiety). PROAIR 2020-0 Yes [id number] INHALE 1 [place] RESPICLICK 2-24 TO 2 PUFFS ity of 90 00:00: BY MOUTH [place] mcg/actuati 00 EVERY 6 Medic al on [facility] HOURS Branch NEEDED FOR SHORTNESS OF BREATH OR WHEEZING PROAIR 2020-0 Yes [id number] INHALE 1 [place] RESPICLICK 2-24 TO 2 PUFFS ity of 90 00:00: BY MOUTH [place] mcg/actuati 00 EVERY 6 Medic al on [facility] HOURS Branch NEEDED FOR SHORTNESS OF BREATH OR WHEEZING PROAIR 2020-0 Yes [id number] INHALE 1 [place] RESPICLICK 2-24 TO 2 PUFFS ity of 90 00:00: BY MOUTH [place] mcg/actuati 00 EVERY 6 Medic al on [facility] HOURS Branch NEEDED FOR SHORTNESS OF BREATH OR WHEEZING PROAIR 2020-0 Yes [id number] INHALE 1 [place] RESPICLICK 2-24 TO 2 PUFFS ity of 90 00:00: BY MOUTH [place] mcg/actuati 00 EVERY 6 Medic al on [facility] HOURS Branch NEEDED FOR SHORTNESS OF BREATH OR WHEEZING PROAIR 2020-0 Yes [id number] INHALE 1 [place] RESPICLICK 2-24 TO 2 PUFFS ity of 90 00:00: BY MOUTH [place] mcg/actuati 00 EVERY 6 Medic al on [facility] HOURS Branch NEEDED FOR SHORTNESS OF BREATH OR WHEEZING PROAIR 2020-0 Yes [id number] INHALE 1 [place] RESPICLICK 2-24 TO 2 PUFFS ity of 90 00:00: BY MOUTH [place] mcg/actuati 00 EVERY 6 Medic al on [facility] HOURS Branch NEEDED FOR SHORTNESS OF BREATH OR WHEEZING PROAIR 2020-0 Yes [id number] INHALE 1 [place] RESPICLICK 2-24 TO 2 PUFFS ity of 90 00:00: BY MOUTH [place] mcg/actuati 00 EVERY 6 Medic al on [facility] HOURS Branch NEEDED FOR SHORTNESS OF BREATH OR WHEEZING PROAIR 2020-0 Yes [id number] INHALE 1 [place] RESPICLICK 2-24 TO 2 PUFFS ity of 90 00:00: BY MOUTH [place] mcg/actuati 00 EVERY 6 Medic al on [facility] HOURS Branch NEEDED FOR SHORTNESS OF BREATH OR WHEEZING PROAIR 2020-0 Yes [id number] INHALE 1 [place] RESPICLICK 2-24 TO 2 PUFFS ity of 90 00:00: BY MOUTH [place] mcg/actuati 00 EVERY 6 Medic al on [facility] HOURS Branch NEEDED FOR SHORTNESS OF BREATH OR WHEEZING PROAIR 2020-0 Yes [id number] INHALE 1 [place] RESPICLICK 2-24 TO 2 PUFFS ity of 90 00:00: BY MOUTH [place] mcg/actuati 00 EVERY 6 Medic al on [facility] HOURS Branch NEEDED FOR SHORTNESS OF BREATH OR WHEEZING PROAIR 2020-0 Yes [id number] INHALE 1 [place] RESPICLICK 2-24 TO 2 PUFFS ity of 90 00:00: BY MOUTH [place] mcg/actuati 00 EVERY 6 Medic al on [facility] HOURS Branch NEEDED FOR SHORTNESS OF BREATH OR WHEEZING PROAIR 2020-0 Yes [id number] INHALE 1 [place] RESPICLICK 2-24 TO 2 PUFFS ity of 90 00:00: BY MOUTH [place] mcg/actuati 00 EVERY 6 Medic al on [facility] HOURS Branch NEEDED FOR SHORTNESS OF BREATH OR WHEEZING PROAIR 2020-0 Yes [id number] INHALE 1 [place] RESPICLICK 2-24 TO 2 PUFFS ity of 90 00:00: BY MOUTH [place] mcg/actuati 00 EVERY 6 Medic al on [facility] HOURS Branch NEEDED FOR SHORTNESS OF BREATH OR WHEEZING PROAIR 2020-0 Yes [id number] INHALE 1 [place] RESPICLICK 2-24 TO 2 PUFFS ity of 90 00:00: BY MOUTH [place] mcg/actuati 00 EVERY 6 Medic al on [facility] HOURS Branch NEEDED FOR SHORTNESS OF BREATH OR WHEEZING PROAIR 2020-0 Yes [id number] INHALE 1 [place] RESPICLICK 2-24 TO 2 PUFFS ity of 90 00:00: BY MOUTH [place] mcg/actuati 00 EVERY 6 Medic al on [facility] HOURS Branch NEEDED FOR SHORTNESS OF BREATH OR WHEEZING PROAIR 2020-0 Yes [id number] INHALE 1 [place] RESPICLICK 2-24 TO 2 PUFFS ity of 90 00:00: BY MOUTH [place] mcg/actuati 00 EVERY 6 Medic al on [facility] HOURS Branch NEEDED FOR SHORTNESS OF BREATH OR WHEEZING PROAIR 2020-0 Yes [id number] INHALE 1 [place] RESPICLICK 2-24 TO 2 PUFFS ity of 90 00:00: BY MOUTH [place] mcg/actuati 00 EVERY 6 Medic al on [facility] HOURS Branch NEEDED FOR SHORTNESS OF BREATH OR WHEEZING PROAIR 2020-0 Yes [id number] INHALE 1 [place] RESPICLICK 2-24 TO 2 PUFFS ity of 90 00:00: BY MOUTH [place] mcg/actuati 00 EVERY 6 Medic al on [facility] HOURS Branch NEEDED FOR SHORTNESS OF BREATH OR WHEEZING PROAIR 2020-0 Yes [id number] INHALE 1 [place] RESPICLICK 2-24 TO 2 PUFFS ity of 90 00:00: BY MOUTH [place] mcg/actuati 00 EVERY 6 Medic al on [facility] HOURS Branch NEEDED FOR SHORTNESS OF BREATH OR WHEEZING PROAIR 2020-0 2020- No [id number] INHALE 1 U nivers RESPICLICK 2-24 12-22 TO 2 PUFFS it y of 90 00:00: 00:00 BY MOUTH [place] mcg/actuati 00 :00 EVERY 6 Medic al on [facility] HOURS Branch NEEDED FOR SHORTNESS OF BREATH OR WHEEZING PROAIR 2020-0 2020- No [id number] INHALE 1 U nivers RESPICLICK 2-24 12-22 TO 2 PUFFS it y of 90 00:00: 00:00 BY MOUTH [place] mcg/actuati 00 :00 EVERY 6 Medic al on [facility] HOURS Branch NEEDED FOR SHORTNESS OF BREATH OR WHEEZING traMADol 50 2020-0 Yes [id number] 50mg Take 1 [facility] mg tablet 2-06 tablet by ity o f 00:00: mouth 2 00 (two) Medical times Branch daily as needed for Pain (scale 4-6) (moderate- severe pain). traMADol 50 2020-0 Yes [id number] 50mg Take 1 [facility] mg tablet 2-06 tablet by ity o f 00:00: mouth 2 [place] 00 (two) Medical times Branch daily as needed for Pain (scale 4-6) (moderate- severe pain). traMADol 50 2020-0 Yes [id number] 50mg Take 1 [facility] mg tablet 2-06 tablet by ity o f 00:00: mouth (two) Medical times Branch daily as needed for Pain (scale 4-6) (moderate- severe pain). traMADol 50 2020-0 Yes [id number] 50mg Take 1 [facility] mg tablet 2-06 tablet by ity o f 00:00: mouth (two) Medical times Branch daily as needed for Pain (scale 4-6) (moderate- severe pain). traMADol 50 2020-0 Yes [id number] 50mg Take 1 [facility] mg tablet 2-06 tablet by ity o f 00:00: mouth (two) Medical times Branch daily as needed for Pain (scale 4-6) (moderate- severe pain). traMADol 50 2020-0 Yes [id number] 50mg Take 1 [facility] mg tablet 2-06 tablet by ity o f 00:00: mouth (two) Medical times Branch daily as needed for Pain (scale 4-6) (moderate- severe pain). traMADol 50 2020-0 Yes [id number] 50mg Take 1 [facility] mg tablet 2-06 tablet by ity o f 00:00: mouth (two) Medical times Branch daily as needed for Pain (scale 4-6) (moderate- severe pain). traMADol 50 2020-0 Yes [id number] 50mg Take 1 [facility] mg tablet 2-06 tablet by ity o f 00:00: mouth (two) Medical times Branch daily as needed for Pain (scale 4-6) (moderate- severe pain). traMADol 50 2020-0 Yes [id number] 50mg Take 1 [facility] mg tablet 2-06 tablet by ity o f 00:00: mouth (two) Medical times Branch daily as needed for Pain (scale 4-6) (moderate- severe pain). traMADol 50 2020-0 Yes [id number] 50mg Take 1 [facility] mg tablet 2-06 tablet by ity o f 00:00: mouth 2 (two) Medical times Branch daily as needed for Pain (scale 4-6) (moderate- severe pain). traMADol 50 2020-0 Yes [id number] 50mg Take 1 [facility] mg tablet 2-06 tablet by ity o f 00:00: mouth 2 (two) Medical times Branch daily as needed for Pain (scale 4-6) (moderate- severe pain). traMADol 50 2020-0 Yes [id number] 50mg Take 1 [facility] mg tablet 2-06 tablet by ity o f 00:00: mouth 2 00 (two) Medical times Branch daily as needed for Pain (scale 4-6) (moderate- severe pain). traMADol 50 2019-0 Yes [id number] 50mg Take 1 [facility] mg tablet 2-06 tablet by ity o f 00:00: mouth 2 00 (two) Medical times Branch daily as needed for Pain (scale 4-6) (moderate- severe pain). traMADol 50 2019-0 Yes [id number] 50mg Take 1 [facility] mg tablet 2-06 tablet by ity o f 00:00: mouth 2 00 (two) Medical times Branch daily as needed for Pain (scale 4-6) (moderate- severe pain). traMADol 50 2019-0 Yes [id number] 50mg Take 1 [facility] mg tablet 2-06 tablet by ity o f 00:00: mouth 2 00 (two) Medical times Branch daily as needed for Pain (scale 4-6) (moderate- severe pain). traMADol 50 2019-0 Yes [id number] 50mg Take 1 [facility] mg tablet 2-06 tablet by ity o f 00:00: mouth 2 (two) Medical times Branch daily as needed for Pain (scale 4-6) (moderate- severe pain). traMADol 50 2019-0 Yes [id number] 50mg Take 1 [facility] mg tablet 2-06 tablet by ity o f 00:00: mouth 2 (two) Medical times Branch daily as needed for Pain (scale 4-6) (moderate- severe pain). traMADol 50 2019-0 2020- No [id number] 50mg Take 1 [facility] mg tablet 2-06 06-16 tablet by ity of 00:00: 00:00 mouth 2 [place] 00 :00 (two) Medical times Branch daily as needed for Pain (scale 4-6) (moderate- severe pain). albuterol 2019-0 Yes [id number] 1{puff} Inhale 1-2 [facility] sulfate 90 1-31 Puffs ity of mcg/actuati 00:00: every 6 [place] as on [facility] 00 (six) Medical hours as Branch needed (SOB or wheezing). benzonatate 2019-0 Yes [id number] 200mg Take 1 [facility] 200 mg 1-31 capsule by ity of capsule 00:00: mouth (three) Medical times Branch daily as needed for Cough. ibuprofen 2020-0 Yes [id number] 600mg Take 1 [facility] 600 mg 1-31 tablet by ity of tablet 00:00: mouth (three) Medical times Branch daily with meals as needed (pain). albuterol 2020-0 Yes [id number] 1{puff} Inhale 1-2 [facility] sulfate 90 1-31 Puffs ity of mcg/actuati 00:00: every 6 [place] as on [facility] 00 (six) Medical hours as Branch needed (SOB or wheezing). benzonatate 2020-0 Yes [id number] 200mg Take 1 [facility] 200 mg 1-31 capsule by [facility] capsule 00:00: mouth (three) Medical times Branch daily as needed for Cough. ibuprofen 2020-0 Yes [id number] 600mg Take 1 [facility] 600 mg 1-31 tablet by [facility] tablet 00:00: mouth (three) Medical times Branch daily with meals as needed (pain). albuterol 2020-0 Yes [id number] 1{puff} Inhale 1-2 [facility] sulfate 90 1-31 Puffs [facility] of mcg/actuati 00:00: every 6 [place] on AePB 00 (six) Medical hours as Branch needed (SOB or wheezing). benzonatate 2020-0 Yes [id number] 200mg Take 1 [facility] 200 mg 1-31 capsule by [facility] of capsule 00:00: mouth (three) Medical times Branch daily as needed for Cough. ibuprofen 2020-0 Yes [id number] 600mg Take 1 [facility] 600 mg 1-31 tablet by [facility] tablet 00:00: mouth (three) Medical times Branch daily with meals as needed (pain). albuterol 2020-0 Yes [id number] 1{puff} Inhale 1-2 [facility] sulfate 90 1-31 Puffs [facility] of mcg/actuati 00:00: every 6 [place] on AePB 00 (six) Medical hours as Branch needed (SOB or wheezing). benzonatate 2020-0 Yes [id number] 200mg Take 1 [facility] 200 mg 1-31 capsule by [facility] of capsule 00:00: mouth (three) Medical times Branch daily as needed for Cough. ibuprofen 2020-0 Yes [id number] 600mg Take 1 [facility] 600 mg 1-31 tablet by [facility] of tablet 00:00: mouth (three) Medical times Branch daily with meals as needed (pain). albuterol 2020-0 Yes [id number] 1{puff} Inhale 1-2 [facility] sulfate 90 1-31 Puffs [facility] of mcg/actuati 00:00: every 6 [place] on AePB (six) Medical hours as Branch needed (SOB or wheezing). benzonatate 2020-0 Yes [id number] 200mg Take 1 [facility] 200 mg 1-31 capsule by [facility] of capsule 00:00: mouth (three) Medical times Branch daily as needed for Cough. ibuprofen 2020-0 Yes [id number] 600mg Take 1 [facility] 600 mg 1-31 tablet by [facility] of tablet 00:00: mouth (three) Medical times Branch daily with meals as needed (pain). benzonatate 2020-0 Yes [id number] 200mg Take 1 [facility] 200 mg 1-31 capsule by [facility] of capsule 00:00: mouth (three) Medical times Branch daily as needed for Cough. ibuprofen 2020-0 Yes [id number] 600mg Take 1 [facility] 600 mg 1-31 tablet by [facility] of tablet 00:00: mouth (three) Medical times Branch daily with meals as needed (pain). benzonatate 2020-0 Yes [id number] 200mg Take 1 [facility] 200 mg 1-31 capsule by [facility] of capsule 00:00: mouth (three) Medical times Branch daily as needed for Cough. ibuprofen 2020-0 Yes [id number] 600mg Take 1 [facility] 600 mg 1-31 tablet by [facility] of tablet 00:00: mouth (three) Medical times Branch daily with meals as needed (pain). benzonatate 2020-0 Yes [id number] 200mg Take 1 [facility] 200 mg 1-31 capsule by [facility] of capsule 00:00: mouth (three) Medical times Branch daily as needed for Cough. ibuprofen 2020-0 Yes [id number] 600mg Take 1 [facility] 600 mg 1-31 tablet by [facility] of tablet 00:00: mouth (three) Medical times Branch daily with meals as needed (pain). benzonatate 2020-0 Yes [id number] 200mg Take 1 [facility] 200 mg 1-31 capsule by [facility] of capsule 00:00: mouth (three) Medical times Branch daily as needed for Cough. ibuprofen 2020-0 Yes [id number] 600mg Take 1 [facility] 600 mg 1-31 tablet by [facility] of tablet 00:00: mouth (three) Medical times Branch daily with meals as needed (pain). benzonatate 2020-0 Yes [id number] 200mg Take 1 [facility] 200 mg 1-31 capsule by [facility] of capsule 00:00: mouth (three) Medical times Branch daily as needed for Cough. ibuprofen 2020-0 Yes [id number] 600mg Take 1 [facility] 600 mg 1-31 tablet by [facility] of tablet 00:00: mouth (three) Medical times Branch daily with meals as needed (pain). benzonatate 2020-0 Yes [id number] 200mg Take 1 [facility] 200 mg 1-31 capsule by [facility] of capsule 00:00: mouth (three) Medical times Branch daily as needed for Cough. ibuprofen 2020-0 Yes [id number] 600mg Take 1 [facility] 600 mg 1-31 tablet by [facility] of tablet 00:00: mouth () Medical times Branch daily with meals as needed (pain). benzonatate 2020-0 Yes [id number] 200mg Take 1 [facility] 200 mg 1-31 capsule by [facility] of capsule 00:00: mouth () Medical times Branch daily as needed for Cough. ibuprofen 2020-0 Yes [id number] 600mg Take 1 [facility] 600 mg 1-31 tablet by [facility] of tablet 00:00: mouth (three) Medical times Branch daily with meals as needed (pain). benzonatate 2020-0 Yes [id number] 200mg Take 1 [facility] 200 mg 1-31 capsule by [facility] of capsule 00:00: mouth (three) Medical times Branch daily as needed for Cough. ibuprofen 2020-0 Yes [id number] 600mg Take 1 [facility] 600 mg 1-31 tablet by [facility] of tablet 00:00: mouth (three) Medical times Branch daily with meals as needed (pain). benzonatate 2020-0 Yes [id number] 200mg Take 1 [facility] 200 mg 1-31 capsule by [facility] of capsule 00:00: mouth (three) Medical times Branch daily as needed for Cough. ibuprofen 2020-0 Yes [id number] 600mg Take 1 [facility] 600 mg 1-31 tablet by [facility] of tablet 00:00: mouth (three) Medical times Branch daily with meals as needed (pain). benzonatate 2020-0 Yes [id number] 200mg Take 1 [facility] 200 mg 1-31 capsule by [facility] of capsule 00:00: mouth (three) Medical times Branch daily as needed for Cough. ibuprofen 2020-0 Yes [id number] 600mg Take 1 [facility] 600 mg 1-31 tablet by [facility] of tablet 00:00: mouth (three) Medical times Branch daily with meals as needed (pain). benzonatate 2020-0 Yes [id number] 200mg Take 1 [facility] 200 mg 1-31 capsule by [facility] of capsule 00:00: mouth (three) Medical times Branch daily as needed for Cough. ibuprofen 2020-0 Yes [id number] 600mg Take 1 [facility] 600 mg 1-31 tablet by [facility] of tablet 00:00: mouth () Medical times Branch daily with meals as needed (pain). benzonatate 2020-0 Yes [id number] 200mg Take 1 [facility] 200 mg 1-31 capsule by [facility] of capsule 00:00: mouth (three) Medical times Branch daily as needed for Cough. ibuprofen 2020-0 Yes [id number] 600mg Take 1 [facility] 600 mg 1-31 tablet by [facility] of tablet 00:00: mouth (three) Medical times Branch daily with meals as needed (pain). benzonatate 2020-0 Yes [id number] 200mg Take 1 [facility] 200 mg 1-31 capsule by [facility] of capsule 00:00: mouth (three) Medical times Branch daily as needed for Cough. ibuprofen 2020-0 Yes [id number] 600mg Take 1 [facility] 600 mg 1-31 tablet by [facility] of tablet 00:00: mouth (three) Medical times Branch daily with meals as needed (pain). benzonatate 2020-0 Yes [id number] 200mg Take 1 [facility] 200 mg 1-31 capsule by [facility] of capsule 00:00: mouth (three) Medical times Branch daily as needed for Cough. ibuprofen 2020-0 Yes [id number] 600mg Take 1 [facility] 600 mg 1-31 tablet by [facility] of tablet 00:00: mouth (three) Medical times Branch daily with meals as needed (pain). benzonatate 2020-0 Yes [id number] 200mg Take 1 [facility] 200 mg 1-31 capsule by [facility] of capsule 00:00: mouth (three) Medical times Branch daily as needed for Cough. ibuprofen 2020-0 Yes [id number] 600mg Take 1 [facility] 600 mg 1-31 tablet by [facility] of tablet 00:00: mouth (three) Medical times Branch daily with meals as needed (pain). benzonatate 2020-0 Yes [id number] 200mg Take 1 [facility] 200 mg 1-31 capsule by [facility] of capsule 00:00: mouth (three) Medical times Branch daily as needed for Cough. ibuprofen 2020-0 Yes [id number] 600mg Take 1 [facility] 600 mg 1-31 tablet by [facility] of tablet 00:00: mouth () Medical times Branch daily with meals as needed (pain). benzonatate 2020-0 Yes [id number] 200mg Take 1 [facility] 200 mg 1-31 capsule by [facility] of capsule 00:00: mouth () Medical times Branch daily as needed for Cough. ibuprofen 2020-0 Yes [id number] 600mg Take 1 [facility] 600 mg 1-31 tablet by [facility] of tablet 00:00: mouth () Medical times Branch daily with meals as needed (pain). benzonatate 2020-0 Yes [id number] 200mg Take 1 [facility] 200 mg 1-31 capsule by [facility] of capsule 00:00: mouth () Medical times Branch daily as needed for Cough. ibuprofen 2020-0 Yes [id number] 600mg Take 1 [facility] 600 mg 1-31 tablet by [facility] of tablet 00:00: mouth (three) Medical times Branch daily with meals as needed (pain). benzonatate 2020-0 Yes [id number] 200mg Take 1 [facility] 200 mg 1-31 capsule by [facility] of capsule 00:00: mouth (three) Medical times Branch daily as needed for Cough. ibuprofen 2020-0 Yes [id number] 600mg Take 1 [facility] 600 mg 1-31 tablet by [facility] of tablet 00:00: mouth (three) Medical times Branch daily with meals as needed (pain). benzonatate 2020-0 Yes [id number] 200mg Take 1 [facility] 200 mg 1-31 capsule by [facility] of capsule 00:00: mouth 3 [place] 00 (three) Medical times Branch daily as needed for Cough. ibuprofen 2019-0 Yes [id number] 600mg Take 1 [facility] 600 mg 1-31 tablet by [facility] of tablet 00:00: mouth 3 [place] 00 (three) Medical times Branch daily with meals as needed (pain). benzonatate 2019- 2020- No [id number] 200mg Take 1 [facility] 200 mg 1-31 12-22 capsule by [facility] of capsule 00:00: 00:00 mouth 3 [place] 00 :00 (three) Medical times Branch daily as needed for Cough. ibuprofen 2019- 2020- No [id number] 600mg Take 1 [facility] 600 mg 1-31 12-22 tablet by [facility] of tablet 00:00: 00:00 mouth 3 [place] 00 :00 (three) Medical times Branch daily with meals as needed (pain). benzonatate 2020- No [id number] 200mg Take 1 [facility] 200 mg 1-31 12-22 capsule by [facility] of capsule 00:00: 00:00 mouth 3 [place] 00 :00 (three) Medical times Branch daily as needed for Cough. ibuprofen 2019- 2020- No [id number] 600mg Take 1 [facility] 600 mg 1-31 12-22 tablet by ity of tablet 00:00: 00:00 mouth 3 [place] 00 :00 (three) Medical times Branch daily with meals as needed (pain). albuterol 2020- No [id number] 1{puff} Inhale 1-2 [facility] sulfate 90 1- 02-24 Puffs it[facility] of mcg/actuati 00:00: 00:00 every 6 [place] on AePB 00 :00 (six) Medical hours as Branch needed (SOB or wheezing). albuterol 2019- 2020- No [id number] 1{puff} Inhale 1-2 [facility] sulfate 90 1-31 02-24 Puffs ity of mcg/actuati 00:00: 00:00 every 6 [place] on AePB 00 :00 (six) Medical hours as Branch needed (SOB or wheezing). buPROPion 2019-0 Yes [id number] 200mg Take 1 [facility] 200 mg 12 1-21 tablet by ity o f hr tablet 00:00: mouth (two) Medical times Branch daily. traZODone 2020-0 Yes [id number] 25mg Take 0.5-1 [facility] 50 mg 1-21 tablets by it[facility] of tablet 00:00: mouth at [place] bedtime as Medical needed for Branch Insomnia. buPROPion 2020-0 Yes [id number] 200mg Take 1 [facility] 200 mg 12 1-21 tablet by ity o f hr tablet 00:00: mouth (two) Medical times Branch daily. traZODone 2020-0 Yes [id number] 25mg Take 0.5-1 [facility] 50 mg 1-21 tablets by ity of tablet 00:00: mouth at [place] bedtime as Medical needed for Branch Insomnia. buPROPion 2020-0 Yes [id number] 200mg Take 1 [facility] 200 mg 12 1-21 tablet by ity o f hr tablet 00:00: mouth (two) Medical times Branch daily. traZODone 2020-0 Yes [id number] 25mg Take 0.5-1 [facility] 50 mg 1-21 tablets by ity of tablet 00:00: mouth at [place] bedtime as Medical needed for Branch Insomnia. buPROPion 2020-0 Yes [id number] 200mg Take 1 [facility] 200 mg 12 1-21 tablet by ity o f hr tablet 00:00: mouth (two) Medical times Branch daily. traZODone 2020-0 Yes [id number] 25mg Take 0.5-1 [facility] 50 mg 1-21 tablets by ity of tablet 00:00: mouth at [place] bedtime as Medical needed for Branch Insomnia. buPROPion 2020-0 Yes [id number] 200mg Take 1 [facility] 200 mg 12 1-21 tablet by ity o f hr tablet 00:00: mouth [place] (two) Medical times Branch daily. traZODone 2020-0 Yes [id number] 25mg Take 0.5-1 [facility] 50 mg 1-21 tablets by ity of tablet 00:00: mouth at [place] 00 bedtime as Medical needed for Branch Insomnia. buPROPion 2020-0 Yes [id number] 200mg Take 1 [facility] 200 mg 12 1-21 tablet by ity o f hr tablet 00:00: mouth (two) Medical times Branch daily. traZODone 2020-0 Yes [id number] 25mg Take 0.5-1 [facility] 50 mg 1-21 tablets by ity of tablet 00:00: mouth at [place] 00 bedtime as Medical needed for Branch Insomnia. buPROPion 2020-0 Yes [id number] 200mg Take 1 [facility] 200 mg 12 1-21 tablet by ity o f hr tablet 00:00: mouth 2 [place] (two) Medical times Branch daily. traZODone 2020-0 Yes [id number] 25mg Take 0.5-1 [facility] 50 mg 1-21 tablets by ity of tablet 00:00: mouth at [place] 00 bedtime as Medical needed for Branch Insomnia. buPROPion 2020-0 Yes [id number] 200mg Take 1 [facility] 200 mg 12 1-21 tablet by ity o f hr tablet 00:00: mouth [place] (two) Medical times Branch daily. traZODone 2020-0 Yes [id number] 25mg Take 0.5-1 [facility] 50 mg 1-21 tablets by ity of tablet 00:00: mouth at [place] 00 bedtime as Medical needed for Branch Insomnia. buPROPion 2020-0 Yes [id number] 200mg Take 1 [facility] 200 mg 12 1-21 tablet by ity o f hr tablet 00:00: mouth [place] (two) Medical times Branch daily. traZODone 2020-0 Yes [id number] 25mg Take 0.5-1 [facility] 50 mg 1-21 tablets by ity of tablet 00:00: mouth at [place] 00 bedtime as Medical needed for Branch Insomnia. buPROPion 2020-0 Yes [id number] 200mg Take 1 [facility] 200 mg 12 1-21 tablet by ity o f hr tablet 00:00: mouth 2 [place] (two) Medical times Branch daily. traZODone 2020-0 Yes [id number] 25mg Take 0.5-1 [facility] 50 mg 1-21 tablets by ity of tablet 00:00: mouth at [place] 00 bedtime as Medical needed for Branch Insomnia. buPROPion 2020-0 Yes [id number] 200mg Take 1 [facility] 200 mg 12 1-21 tablet by ity o f hr tablet 00:00: mouth 2 [place] (two) Medical times Branch daily. traZODone 2020-0 Yes [id number] 25mg Take 0.5-1 [facility] 50 mg 1-21 tablets by ity of tablet 00:00: mouth at [place] 00 bedtime as Medical needed for Branch Insomnia. buPROPion 2020-0 Yes [id number] 200mg Take 1 [facility] 200 mg 12 1-21 tablet by ity o f hr tablet 00:00: mouth [place] (two) Medical times Branch daily. traZODone 2020-0 Yes [id number] 25mg Take 0.5-1 [facility] 50 mg 1-21 tablets by ity of tablet 00:00: mouth at [place] 00 bedtime as Medical needed for Branch Insomnia. buPROPion 2020-0 Yes [id number] 200mg Take 1 [facility] 200 mg 12 1-21 tablet by ity o f hr tablet 00:00: mouth 2 [place] (two) Medical times Branch daily. traZODone 2020-0 Yes [id number] 25mg Take 0.5-1 [facility] 50 mg 1-21 tablets by ity of tablet 00:00: mouth at [place] 00 bedtime as Medical needed for Branch Insomnia. buPROPion 2020-0 Yes [id number] 200mg Take 1 [facility] 200 mg 12 1-21 tablet by ity o f hr tablet 00:00: mouth 2 [place] (two) Medical times Branch daily. traZODone 2020-0 Yes [id number] 25mg Take 0.5-1 [facility] 50 mg 1-21 tablets by ity of tablet 00:00: mouth at [place] 00 bedtime as Medical needed for Branch Insomnia. buPROPion 2020-0 Yes [id number] 200mg Take 1 [facility] 200 mg 12 1-21 tablet by ity o f hr tablet 00:00: mouth [place] (two) Medical times Branch daily. traZODone 2020-0 Yes [id number] 25mg Take 0.5-1 [facility] 50 mg 1-21 tablets by ity of tablet 00:00: mouth at [place] 00 bedtime as Medical needed for Branch Insomnia. buPROPion 2020-0 Yes [id number] 200mg Take 1 [facility] 200 mg 12 1-21 tablet by ity o f hr tablet 00:00: mouth [place] (two) Medical times Branch daily. traZODone 2020-0 Yes [id number] 25mg Take 0.5-1 [facility] 50 mg 1-21 tablets by ity of tablet 00:00: mouth at [place] 00 bedtime as Medical needed for Branch Insomnia. buPROPion 2020-0 Yes [id number] 200mg Take 1 [facility] 200 mg 12 1-21 tablet by ity o f hr tablet 00:00: mouth 2 [place] 00 (two) Medical times Branch daily. traZODone 2020-0 Yes [id number] 25mg Take 0.5-1 [facility] 50 mg 1-21 tablets by ity of tablet 00:00: mouth at [place] 00 bedtime as Medical needed for Branch Insomnia. buPROPion 2020-0 Yes [id number] 200mg Take 1 [facility] 200 mg 12 1-21 tablet by ity o f hr tablet 00:00: mouth 2 [place] 00 (two) Medical times Branch daily. traZODone 2020-0 Yes [id number] 25mg Take 0.5-1 [facility] 50 mg 1-21 tablets by ity of tablet 00:00: mouth at [place] 00 bedtime as Medical needed for Branch Insomnia. buPROPion 2020-0 Yes [id number] 200mg Take 1 [facility] 200 mg 12 1-21 tablet by ity o f hr tablet 00:00: mouth 2 [place] (two) Medical times Branch daily. buPROPion 2020-0 Yes [id number] 200mg Take 1 [facility] 200 mg 12 1-21 tablet by ity o f hr tablet 00:00: mouth 2 [place] 00 (two) Medical times Branch daily. buPROPion 2020-0 2020- No [id number] 200mg Take 1 [facility] 200 mg 12 1-21 07-30 tablet by ity of hr tablet 00:00: 00:00 mouth 2 [place] 00 :00 (two) Medical times Branch daily. buPROPion 2020-0 2020- No [id number] 200mg Take 1 [facility] 200 mg 12 1-21 07-30 tablet by ity of hr tablet 00:00: 00:00 mouth 2 [place] 00 :00 (two) Medical times Branch daily. traZODone 2020-0 2020- No [id number] 25mg Take 0.5-1 [facility] 50 mg 1-21 - tablets by ity of tablet 00:00: 00:00 mouth at [place] 00 :00 bedtime as Medical needed for Branch Insomnia. fluticasone 2018-09 Yes [id number] 2{spray Use 2 [facility] propionate 09-12 } Sprays in ity of 50 00:00: each [place] mcg/actuati 00 nostril Medic al on nasal daily. Branch spray fluticasone 2018-09 Yes [id number] 2{spray Use 2 [facility] propionate 1-01 } Sprays in ity of 50 00:00: each [place] mcg/actuati 00 nostril Medic al on nasal daily. Branch spray fluticasone 2018-09 Yes [id number] 2{spray Use 2 [facility] propionate 1-01 } Sprays in ity of 50 00:00: each [place] mcg/actuati 00 nostril Medic al on nasal daily. Branch spray fluticasone 2018-09 Yes [id number] 2{spray Use 2 [facility] propionate 1-01 } Sprays in ity of 50 00:00: each [place] mcg/actuati 00 nostril Medic al on nasal daily. Branch spray fluticasone 2018-09 Yes [id number] 2{spray Use 2 [facility] propionate 1-01 } Sprays in ity of 50 00:00: each [place] mcg/actuati 00 nostril Medic al on nasal daily. Branch spray fluticasone 2018-09 Yes [id number] 2{spray Use 2 [facility] propionate 1-01 } Sprays in ity of 50 00:00: each [place] mcg/actuati 00 nostril Medic al on nasal daily. Branch spray fluticasone 2018-09 Yes [id number] 2{spray Use 2 [facility] propionate 1-01 } Sprays in ity of 50 00:00: each [place] mcg/actuati 00 nostril Medic al on nasal daily. Branch spray fluticasone 2018-09 Yes [id number] 2{spray Use 2 [facility] propionate 1-01 } Sprays in ity of 50 00:00: each [place] mcg/actuati 00 nostril Medic al on nasal daily. Branch spray fluticasone 2018-09 Yes [id number] 2{spray Use 2 [facility] propionate 1-01 } Sprays in ity of 50 00:00: each [place] mcg/actuati 00 nostril Medic al on nasal daily. Branch spray fluticasone 2018-09 Yes [id number] 2{spray Use 2 [facility] propionate 1-01 } Sprays in ity of 50 00:00: each [place] mcg/actuati 00 nostril Medic al on nasal daily. Branch spray fluticasone 2018-09 Yes [id number] 2{spray Use 2 [facility] propionate 1-01 } Sprays in ity of 50 00:00: each [place] mcg/actuati 00 nostril Medic al on nasal daily. Branch spray fluticasone 2018-09 Yes [id number] 2{spray Use 2 [facility] propionate 1-01 } Sprays in ity of 50 00:00: each [place] mcg/actuati 00 nostril Medic al on nasal daily. Branch spray fluticasone 2018-09 Yes [id number] 2{spray Use 2 [facility] propionate 1-01 } Sprays in ity of 50 00:00: each [place] mcg/actuati 00 nostril Medic al on nasal daily. Branch spray fluticasone 2018-09 Yes [id number] 2{spray Use 2 [facility] propionate 1-01 } Sprays in ity of 50 00:00: each [place] mcg/actuati 00 nostril Medic al on nasal daily. Branch spray fluticasone 2018-09 Yes [id number] 2{spray Use 2 [facility] propionate 1-01 } Sprays in ity of 50 00:00: each [place] mcg/actuati 00 nostril Medic al on nasal daily. Branch spray fluticasone 2018-09 Yes [id number] 2{spray Use 2 [facility] propionate 1-01 } Sprays in ity of 50 00:00: each [place] mcg/actuati 00 nostril Medic al on nasal daily. Branch spray fluticasone 2018-09 Yes [id number] 2{spray Use 2 [facility] propionate 1-01 } Sprays in ity of 50 00:00: each [place] mcg/actuati 00 nostril Medic al on nasal daily. Branch spray fluticasone 2018-09 Yes [id number] 2{spray Use 2 [facility] propionate 1-01 } Sprays in ity of 50 00:00: each [place] mcg/actuati 00 nostril Medic al on nasal daily. Branch spray fluticasone 2018-09 Yes [id number] 2{spray Use 2 [facility] propionate 1-01 } Sprays in ity of 50 00:00: each [place] mcg/actuati 00 nostril Medic al on nasal daily. Branch spray fluticasone 2018-09 Yes [id number] 2{spray Use 2 [facility] propionate 1-01 } Sprays in ity of 50 00:00: each [place] mcg/actuati 00 nostril Medic al on nasal daily. Branch spray fluticasone 2018-09 Yes [id number] 2{spray Use 2 [facility] propionate 1-01 } Sprays in ity of 50 00:00: each [place] mcg/actuati 00 nostril Medic al on nasal daily. Branch spray fluticasone 2018-09 Yes [id number] 2{spray Use 2 [facility] propionate 1-01 } Sprays in ity of 50 00:00: each [place] mcg/actuati 00 nostril Medic al on nasal daily. Branch spray fluticasone 2018-09 Yes [id number] 2{spray Use 2 [facility] propionate 1-01 } Sprays in ity of 50 00:00: each [place] mcg/actuati 00 nostril Medic al on nasal daily. Branch spray fluticasone 2018-09 Yes [id number] 2{spray Use 2 [facility] propionate 1-01 } Sprays in ity of 50 00:00: each [place] mcg/actuati 00 nostril Medic al on nasal daily. Branch spray fluticasone 2018-09 Yes [id number] 2{spray Use 2 [facility] propionate 1-01 } Sprays in ity of 50 00:00: each [place] mcg/actuati 00 nostril Medic al on nasal daily. Branch spray fluticasone 2018-09 Yes [id number] 2{spray Use 2 [facility] propionate 1-01 } Sprays in ity of 50 00:00: each [place] mcg/actuati 00 nostril Medic al on nasal daily. Branch spray fluticasone 2018-09 Yes [id number] 2{spray Use 2 [facility] propionate 1-01 } Sprays in ity of 50 00:00: each [place] mcg/actuati 00 nostril Medic al on nasal daily. Branch spray fluticasone 2018-09 Yes [id number] 2{spray Use 2 [facility] propionate 1-01 } Sprays in ity of 50 00:00: each [place] mcg/actuati 00 nostril Medic al on nasal daily. Branch spray fluticasone 2018-09 Yes [id number] 2{spray Use 2 [facility] propionate 1-01 } Sprays in ity of 50 00:00: each [place] mcg/actuati 00 nostril Medic al on nasal daily. Branch spray fluticasone 2018-09 Yes [id number] 2{spray Use 2 [facility] propionate 1-01 } Sprays in ity of 50 00:00: each [place] mcg/actuati 00 nostril Medic al on nasal daily. Branch spray fluticasone 2018-09 Yes [id number] 2{spray Use 2 [facility] propionate 1-01 } Sprays in ity of 50 00:00: each [place] mcg/actuati 00 nostril Medic al on nasal daily. Branch spray fluticasone 2018-09 Yes [id number] 2{spray Use 2 [facility] propionate 1-01 } Sprays in ity of 50 00:00: each [place] mcg/actuati 00 nostril Medic al on nasal daily. Branch spray fluticasone 2018-09 Yes [id number] 2{spray Use 2 [facility] propionate 1-01 } Sprays in ity of 50 00:00: each [place] mcg/actuati 00 nostril Medic al on nasal daily. Branch spray fluticasone 2018-09 Yes [id number] 2{spray Use 2 [facility] propionate 1-01 } Sprays in ity of 50 00:00: each [place] mcg/actuati 00 nostril Medic al on nasal daily. Branch spray fluticasone 2018-09 Yes [id number] 2{spray Use 2 [facility] propionate 1-01 } Sprays in ity of 50 00:00: each [place] mcg/actuati 00 nostril Medic al on nasal daily. Branch spray fluticasone 2018-09 Yes [id number] 2{spray Use 2 [facility] propionate 1-01 } Sprays in ity of 50 00:00: each [place] mcg/actuati 00 nostril Medic al on nasal daily. Branch spray fluticasone 2018-09 Yes [id number] 2{spray Use 2 [facility] propionate 1-01 } Sprays in ity of 50 00:00: each [place] mcg/actuati 00 nostril Medic al on nasal daily. Branch spray fluticasone 2018-09 Yes [id number] 2{spray Use 2 [facility] propionate 1-01 } Sprays in ity of 50 00:00: each [place] mcg/actuati 00 nostril Medic al on nasal daily. Branch spray fluticasone 2018-09 Yes [id number] 2{spray Use 2 [facility] propionate 1-01 } Sprays in ity of 50 00:00: each [place] mcg/actuati 00 nostril Medic al on nasal daily. Branch spray fluticasone 2018-09 Yes [id number] 2{spray Use 2 [facility] propionate 1-01 } Sprays in ity of 50 00:00: each [place] mcg/actuati 00 nostril Medic al on nasal daily. Branch spray fluticasone 2018-09 Yes [id number] 2{spray Use 2 [facility] propionate 1-01 } Sprays in ity of 50 00:00: each [place] mcg/actuati 00 nostril Medic al on nasal daily. Branch spray fluticasone 2018-09 Yes [id number] 2{spray Use 2 [facility] propionate 1-01 } Sprays in ity of 50 00:00: each [place] mcg/actuati 00 nostril Medic al on nasal daily. Branch spray fluticasone 2018-09 Yes [id number] 2{spray Use 2 [facility] propionate 1-01 } Sprays in ity of 50 00:00: each [place] mcg/actuati 00 nostril Medic al on nasal daily. Branch spray fluticasone 2018-09 Yes [id number] 2{spray Use 2 [facility] propionate 1- } Sprays in ity of 50 00:00: each [place] mcg/actuati 00 nostril Medic al on nasal daily. Branch spray fluticasone 2018-09 Yes [id number] 2{spray Use 2 [facility] propionate 1-01 } Sprays in ity of 50 00:00: each [place] mcg/actuati 00 nostril Medic al on nasal daily. Branch spray fluticasone 2018-09 Yes [id number] 2{spray Use 2 [facility] propionate 1-01 } Sprays in ity of 50 00:00: each [place] mcg/actuati 00 nostril Medic al on nasal daily. Branch spray fluticasone 2018-09 Yes [id number] 2{spray Use 2 [facility] propionate 1-01 } Sprays in ity of 50 00:00: each [place] mcg/actuati 00 nostril Medic al on nasal daily. Branch spray fluticasone 2018-09 Yes [id number] 2{spray Use 2 [facility] propionate 1-01 } Sprays in ity of 50 00:00: each [place] mcg/actuati 00 nostril Medic al on nasal daily. Branch spray traMADol 50 2018-09 2020- No [id number] 50mg Take 1 [facility] mg tablet 09-12 tablet by ity of 00:00: 00:00 mouth 2 [place] 00 :00 (two) Medical times Branch daily as needed for Pain (scale 4-6) (moderate- severe pain). buPROPion 2018-09- No [id number] 150mg Take 1 [facility] XL 150 mg 09-12 tablet by ity of 24 hr 00:00: 00:00 mouth [place] tablet 00 :00 daily. Medical Branch traMADol 50 2018-09- No [id number] 50mg Take 1 [facility] mg tablet 09-12 tablet by ity of 00:00: 00:00 mouth 2 [place] 00 :00 (two) Medical times Branch daily as needed for Pain (scale 4-6) (moderate- severe pain). buPROPion 2018-09- No [id number] 150mg Take 1 [facility] XL 150 mg 09-12 tablet by ity of 24 hr 00:00: 00:00 mouth [place] tablet 00 :00 daily. Medical Branch buPROPion Yes [id number] 150mg Take 1 [facility] XL 150 mg 8-09 tablet by ity o f 24 hr 00:00: mouth [place] tablet 00 daily. Medical Branch montelukast Yes [id number] 10mg Take 1 [facility] 10 mg 5-30 tablet by ity of tablet 00:00: mouth [place] 00 every Medical evening. Branch fluticasone Yes [id number] 2{spray Use 2 [facility] 50 5-30 } Sprays in ity of mcg/actuati 00:00: each [place] on nasal 00 nostril Medical spray daily. Branch traMADOL 50 Yes [id number] 50mg Take 1 [facility] mg tablet 5-30 tablet by ity o f 00:00: mouth 2 [place] 00 (two) Medical times Branch daily as needed for Pain (scale 4-6) (moderate- severe pain). ammonium Yes [id number] Apply to [facility] lactate 12 5-30 area(s) 3 ity of % cream 00:00: (three) [place] 00 times Medical daily as Branch needed (dry skin). montelukast Yes [id number] 10mg Take 1 [facility] 10 mg 5-30 tablet by ity of tablet 00:00: mouth [place] 00 every Medical evening. Branch fluticasone Yes [id number] 2{spray Use 2 [facility] 50 5-30 } Sprays in ity of mcg/actuati 00:00: each [place] on nasal 00 nostril Medical spray daily. Branch traMADOL 50 2019-0 Yes [id number] 50mg Take 1 [facility] mg tablet 5-30 tablet by ity o f 00:00: mouth 2 [place] 00 (two) Medical times Branch daily as needed for Pain (scale 4-6) (moderate- severe pain). ammonium 2018- Yes [id number] Apply to [facility] lactate 12 5-30 area(s) 3 ity of % cream 00:00: (three) [place] 00 times Medical daily as Branch needed (dry skin). montelukast 2018- Yes [id number] 10mg Take 1 [facility] 10 mg 5-30 tablet by ity of tablet 00:00: mouth [place] 00 every Medical evening. Branch fluticasone 2018- Yes [id number] 2{spray Use 2 [facility] 50 5-30 } Sprays in ity of mcg/actuati 00:00: each [place] on nasal 00 nostril Medical spray daily. Branch traMADOL 50 Yes [id number] 50mg Take 1 [facility] mg tablet 5-30 tablet by ity o f 00:00: mouth 2 [place] 00 (two) Medical times Branch daily as needed for Pain (scale 4-6) (moderate- severe pain). ammonium 2018- Yes [id number] Apply to [facility] lactate 12 5-30 area(s) 3 ity of % cream 00:00: (three) [place] 00 times Medical daily as Branch needed (dry skin). montelukast 2018- 2020- No [id number] 10mg Take 1 [facility] 10 mg 5-30 01-21 tablet by ity of tablet 00:00: 00:00 mouth [place] 00 :00 every Medical evening. Branch ammonium 2018- 2020- No [id number] Apply to [facility] lactate 12 5-30 -21 area(s) 3 ity of % cream 00:00: 00:00 (three) [place] 00 :00 times Medical daily as Branch needed (dry skin). montelukast 2019- 2020- No [id number] 10mg Take 1 [facility] 10 mg 5-30 01-21 tablet by ity of tablet 00:00: 00:00 mouth [place] 00 :00 every Medical evening. Branch ammonium 2018- 2020- No [id number] Apply to [facility] lactate 12 5-30 -21 area(s) 3 ity of % cream 00:00: 00:00 (three) [place] 00 :00 times Medical daily as Branch needed (dry skin). Diclofenac 2019- Yes [id number] RAGHAV 1 GRAM [facility] Sodium 1 % 2-05 AA BID ity of gel 00:00: [place] 00 Medical Branch Diclofenac 2019-0 Yes [id number] RAGHAV 1 GRAM [facility] Sodium 1 % 2-05 AA BID ity of gel 00:00: [place] 00 Medical Branch Diclofenac 2019-0 Yes [id number] RAGHAV 1 GRAM [facility] Sodium 1 % 2-05 AA BID ity of gel 00:00: [place] 00 Medical Branch Diclofenac 2018-0 2020- No [id number] RAGHAV 1 GRAM [facility] Sodium 1 % 2-05 - AA BID ity of gel 00:00: 00:00 [place] 00 :00 Medical Branch Diclofenac 2019-0 2020- No [id number] RAGHAV 1 GRAM [facility] Sodium 1 % 2-05 - AA BID ity of gel 00:00: 00:00 [place] 00 :00 Medical Branch buPROPion Yes 150mg Take 1 [facility] XL 150 mg 1-04 tablet by ity o f 24 hr 00:00: mouth [place] tablet 00 daily. Medical Branch buPROPion Yes 150mg Take 1 [facility] rs XL 150 mg 1-04 tablet by ity o f 24 hr 00:00: mouth [place] tablet 00 daily. Medical Branch buPROPion 2018-0 2019- No 150mg Take 1 [facility] ers XL 150 mg 1-04 08-09 tablet by ity of 24 hr 00:00: 00:00 mouth [place] tablet 00 :00 daily. Medical Branch pantoprazol 2017-09 Yes 1{tbl} Take 1 [facility] 40 mg EC 0-23 tablet by ity of tablet 00:00: mouth [place] 00 daily. Medical Branch pantoprazol 2017-09 Yes 1{tbl} Take 1 [facility] 40 mg EC 0-23 tablet by ity of tablet 00:00: mouth [place] 00 daily. Medical Branch pantoprazol 2017-09 Yes 1{tbl} Take 1 [facility] 40 mg EC 0-23 tablet by ity of tablet 00:00: mouth [place] 00 daily. Medical Branch pantoprazol 2017-09 Yes 1{tbl} Take 1 [facility] 40 mg EC 0-23 tablet by ity of tablet 00:00: mouth [place] 00 daily. Medical Branch pantoprazol 2017-09 Yes 1{tbl} Take 1 [facility] 40 mg EC 0-23 tablet by ity of tablet 00:00: mouth [place] 00 daily. Medical Branch pantoprazol 2017-09 Yes 1{tbl} Take 1 [facility] 40 mg EC 0-23 tablet by ity of tablet 00:00: mouth [place] 00 daily. Medical Branch pantoprazol 2017-09 Yes 1{tbl} Take 1 [facility] 40 mg EC 0-23 tablet by ity of tablet 00:00: mouth [place] 00 daily. Medical Branch pantoprazol 2017-09 Yes 1{tbl} Take 1 [facility] 40 mg EC 0-23 tablet by ity of tablet 00:00: mouth [place] 00 daily. Medical Branch pantoprazol 2017-09 Yes 1{tbl} Take 1 [facility] 40 mg EC 0-23 tablet by ity of tablet 00:00: mouth [place] 00 daily. Medical Branch pantoprazol 2017-09 Yes 1{tbl} Take 1 [facility] 40 mg EC 0-23 tablet by ity of tablet 00:00: mouth [place] 00 daily. Medical Branch pantoprazol 2017-09 Yes 1{tbl} Take 1 [facility] 40 mg EC 0-23 tablet by ity of tablet 00:00: mouth [place] 00 daily. Medical Branch pantoprazol 2017-09 Yes 1{tbl} Take 1 [facility] 40 mg EC 0-23 tablet by ity of tablet 00:00: mouth [place] 00 daily. Medical Branch pantoprazol 2017-09 Yes 1{tbl} Take 1 [facility] 40 mg EC 0-23 tablet by ity of tablet 00:00: mouth [place] 00 daily. Medical Branch pantoprazol 2017-09 Yes 1{tbl} Take 1 [facility] 40 mg EC 0-23 tablet by ity of tablet 00:00: mouth [place] 00 daily. Medical Branch pantoprazol 2017-09 Yes 1{tbl} Take 1 [facility] 40 mg EC 0-23 tablet by ity of tablet 00:00: mouth [place] 00 daily. Medical Branch pantoprazol 2017-09 Yes 1{tbl} Take 1 [facility] 40 mg EC 0-23 tablet by ity of tablet 00:00: mouth [place] 00 daily. Medical Branch pantoprazol 2017-09 Yes 1{tbl} Take 1 [facility] 40 mg EC 0-23 tablet by ity of tablet 00:00: mouth [place] 00 daily. Medical Branch pantoprazol 2017-09 Yes 1{tbl} Take 1 [facility] 40 mg EC 0-23 tablet by ity of tablet 00:00: mouth [place] 00 daily. Medical Branch pantoprazol 2017-09 Yes 1{tbl} Take 1 [facility] 40 mg EC 0-23 tablet by ity of tablet 00:00: mouth [place] 00 daily. Medical Branch pantoprazol 2017-09 Yes 1{tbl} Take 1 [facility] 40 mg EC 0-23 tablet by ity of tablet 00:00: mouth [place] 00 daily. Medical Branch pantoprazol 2017-09 Yes 1{tbl} Take 1 [facility] 40 mg EC 0-23 tablet by ity of tablet 00:00: mouth [place] 00 daily. Medical Branch pantoprazol 2017-09 Yes 1{tbl} Take 1 [facility] 40 mg EC 0-23 tablet by ity of tablet 00:00: mouth [place] 00 daily. Medical Branch pantoprazol 2017-09 Yes 1{tbl} Take 1 [facility] 40 mg EC 0-23 tablet by ity of tablet 00:00: mouth [place] 00 daily. Medical Branch pantoprazol 2017-09 Yes 1{tbl} Take 1 [facility] 40 mg EC 0-23 tablet by ity of tablet 00:00: mouth [place] 00 daily. Medical Branch pantoprazol 2017-09 Yes 1{tbl} Take 1 [facility] 40 mg EC 0-23 tablet by ity of tablet 00:00: mouth [place] 00 daily. Medical Branch pantoprazol 2017-09 Yes 1{tbl} Take 1 [facility] 40 mg EC 0-23 tablet by ity of tablet 00:00: mouth [place] 00 daily. Medical Branch pantoprazol 2017-09 Yes 1{tbl} Take 1 [facility] 40 mg EC 0-23 tablet by ity of tablet 00:00: mouth [place] 00 daily. Medical Branch pantoprazol 2017-09 Yes 1{tbl} Take 1 [facility] 40 mg EC 0-23 tablet by ity of tablet 00:00: mouth [place] 00 daily. Medical Branch pantoprazol 2017-09 Yes 1{tbl} Take 1 [facility] 40 mg EC 0-23 tablet by ity of tablet 00:00: mouth [place] 00 daily. Medical Branch pantoprazol 2017-09 Yes 1{tbl} Take 1 [facility] 40 mg EC 0-23 tablet by ity of tablet 00:00: mouth [place] 00 daily. Medical Branch pantoprazol 2017-09 Yes 1{tbl} Take 1 [facility] 40 mg EC 0-23 tablet by ity of tablet 00:00: mouth [place] 00 daily. Medical Branch pantoprazol 2017-09 Yes 1{tbl} Take 1 [facility] 40 mg EC 0-23 tablet by ity of tablet 00:00: mouth [place] 00 daily. Medical Branch pantoprazol 2017-09 Yes 1{tbl} Take 1 [facility] 40 mg EC 0-23 tablet by ity of tablet 00:00: mouth [place] 00 daily. Medical Branch pantoprazol 2017-09 Yes 1{tbl} Take 1 [facility] 40 mg EC 0-23 tablet by ity of tablet 00:00: mouth [place] 00 daily. Medical Branch pantoprazol 2017-09 Yes 1{tbl} Take 1 [facility] 40 mg EC 0-23 tablet by ity of tablet 00:00: mouth [place] 00 daily. Medical Branch pantoprazol 2017-09 Yes 1{tbl} Take 1 [facility] 40 mg EC 0-23 tablet by ity of tablet 00:00: mouth [place] 00 daily. Medical Branch pantoprazol 2017-09 Yes 1{tbl} Take 1 [facility] 40 mg EC 0-23 tablet by ity of tablet 00:00: mouth [place] 00 daily. Medical Branch pantoprazol 2017-09 Yes 1{tbl} Take 1 [facility] 40 mg EC 0-23 tablet by ity of tablet 00:00: mouth [place] 00 daily. Medical Branch pantoprazol 2017-09 Yes 1{tbl} Take 1 [facility] 40 mg EC 0-23 tablet by ity of tablet 00:00: mouth [place] 00 daily. Medical Branch pantoprazol 2017-09 Yes 1{tbl} Take 1 [facility] 40 mg EC 0-23 tablet by ity of tablet 00:00: mouth [place] 00 daily. Medical Branch pantoprazol 2017-09 Yes 1{tbl} Take 1 [facility] 40 mg EC 0-23 tablet by ity of tablet 00:00: mouth [place] 00 daily. Medical Branch pantoprazol 2017- Yes 1{tbl} Take 1 [facility] 40 mg EC 0-23 tablet by ity of tablet 00:00: mouth [place] 00 daily. Medical Branch pantoprazol 2017- Yes 1{tbl} Take 1 [facility] 40 mg EC 0-23 tablet by ity of tablet 00:00: mouth [place] 00 daily. Medical Branch pantoprazol 2017-09 Yes 1{tbl} Take 1 [facility] 40 mg EC 0-23 tablet by ity of tablet 00:00: mouth [place] 00 daily. Medical Branch pantoprazol 2017-2020- No 1{tbl} Take 1 U nivers e 40 mg EC 0-23 03-22 tablet by ity of tablet 00:00: 00:00 mouth [place] 00 :00 daily. Medical Branch pantoprazol 2017-2020- No 1{tbl} Take 1 U nivers e 40 mg EC 0-23 03-22 tablet by ity of tablet 00:00: 00:00 mouth [place] 00 :00 daily. Medical Branch pantoprazol 2017-2020- No 1{tbl} Take 1 U nivers e 40 mg EC 0-23 03-22 tablet by ity of tablet 00:00: 00:00 mouth [place] 00 :00 daily. Medical Branch Immunizations Ordered Filled Immunization Date Status Comments [facility] e Immunization Name Name Influenza Virus 2020-06-26 Completed [facility] of Vaccine Quad .5 mL 00:00:00 [place] [facility] 6+ MO [facility] Influenza Virus 2020-06-26 Completed [facility] y of Vaccine [facility] .5 mL 00:00:00 [place] [facility] 6+ MO [facility] Influenza Virus 2020-06-26 Completed [facility] y of Vaccine Quad .5 mL 00:00:00 [place] [facility] 6+ MO Branch Influenza Virus 2020-06-26 Completed [facility] y of Vaccine Quad .5 mL 00:00:00 [place] [facility] 6+ MO Branch Influenza Virus 2020-06-26 Completed [facility] y of Vaccine Quad .5 mL 00:00:00 [place] [facility] 6+ MO Branch Influenza Virus 2020-06-26 Completed [facility] y of Vaccine Quad .5 mL 00:00:00 [place] [facility] 6+ MO Branch Influenza Virus 2020-06-26 Completed [facility] y of Vaccine Quad .5 mL 00:00:00 [place] [facility] 6+ MO Branch Influenza Virus 2020-06-26 Completed [facility] y of Vaccine Quad .5 mL 00:00:00 [place] [facility] IM 6+ MO Branch Influenza Virus 2020-06-26 Completed [facility] y of Vaccine Quad .5 mL 00:00:00 [place] [facility] IM 6+ MO Branch Influenza Virus 2020-06-26 Completed [facility] y of Vaccine Quad .5 mL 00:00:00 [place] [facility] IM 6+ MO Branch Influenza Virus 2020-06-26 Completed [facility] y of Vaccine Quad .5 mL 00:00:00 [place] [facility] IM 6+ MO Branch Influenza Virus 2020-06-26 Completed [facility] y of Vaccine Quad .5 mL 00:00:00 [place] [facility] IM 6+ MO Branch Influenza Virus 2020-06-26 Completed [facility] y of Vaccine Quad .5 mL 00:00:00 [place] [facility] IM 6+ MO Branch Influenza Virus 2020-06-26 Completed [facility] y of Vaccine Quad .5 mL 00:00:00 [place] [facility] IM 6+ MO Branch Influenza Virus 2020-06-26 Completed [facility] y of Vaccine Quad .5 mL 00:00:00 [place] [facility] IM 6+ MO Branch Influenza Virus 2020-06-26 Completed [facility] y of Vaccine Quad .5 mL 00:00:00 [place] [facility] IM 6+ MO Branch Influenza Virus 2020-06-26 Completed [facility] y of Vaccine Quad .5 mL 00:00:00 [place] [facility] IM 6+ MO Branch TDAP (ADACEL) 2019-04-02 Completed [facility] of VACCINE 00:00:00 [place] [facility] TDAP (ADACEL) 2019-04-02 Completed [facility] of VACCINE 00:00:00 [place] [facility] TDAP (ADACEL) 2019-04-02 Completed [facility] of VACCINE 00:00:00 [place] [facility] TDAP (ADACEL) 2019-04-02 Completed [facility] of VACCINE 00:00:00 [place] [facility] TDAP (ADACEL) 2019-04-02 Completed [facility] of VACCINE 00:00:00 [place] [facility] TDAP (ADACEL) 2019-04-02 Completed [facility] of VACCINE 00:00:00 [place] [facility] TDAP (ADACEL) 2019-04-02 Completed [facility] of VACCINE 00:00:00 [place] [facility] TDAP (ADACEL) 2019-04-02 Completed [facility] of VACCINE 00:00:00 [place] [facility] TDAP (ADACEL) 2019-04-02 Completed [facility] of VACCINE 00:00:00 [place] [facility] TDAP (ADACEL) 2019-04-02 Completed [facility] of VACCINE 00:00:00 [place] [facility] TDAP (ADACEL) 2019-04-02 Completed [facility] of VACCINE 00:00:00 [place] [facility] TDAP (ADACEL) 2019-04-02 Completed [facility] of VACCINE 00:00:00 [facility] Branch TDAP (ADACEL) 2019-04-02 Completed [facility] of VACCINE 00:00:00 [facility] Branch TDAP (ADACEL) 2019-04-02 Completed [facility] of VACCINE 00:00:00 [facility] Branch TDAP (ADACEL) 2019-04-02 Completed [facility] of VACCINE 00:00:00 [facility] Branch TDAP (ADACEL) 2019-04-02 Completed [facility] of VACCINE 00:00:00 [facility] Branch TDAP (ADACEL) 2019-04-02 Completed [facility] of VACCINE 00:00:00 [facility] Branch TDAP (ADACEL) 2019-04-02 Completed [facility] of VACCINE 00:00:00 [facility] Branch TDAP (ADACEL) 2019-04-02 Completed [facility] of VACCINE 00:00:00 [facility] Branch TDAP (ADACEL) 2019-04-02 Completed [facility] of VACCINE 00:00:00 [facility] Branch TDAP (ADACEL) 2019-04-02 Completed [facility] of VACCINE 00:00:00 [facility] Branch TDAP (ADACEL) 2019-04-02 Completed [facility] of VACCINE 00:00:00 [facility] Branch TDAP (ADACEL) 2019-04-02 Completed [facility] of VACCINE 00:00:00 [facility] Branch TDAP (ADACEL) 2019-04-02 Completed [facility] of VACCINE 00:00:00 [facility] Branch TDAP (ADACEL) 2019-04-02 Completed University of VACCINE 00:00:00 [facility] Branch TDAP (ADACEL) 2019-04-02 Completed [facility] of VACCINE 00:00:00 [facility] Branch TDAP (ADACEL) 2019-04-02 Completed [facility] of VACCINE 00:00:00 [facility] Branch TDAP (ADACEL) 2019-04-02 Completed [facility] of VACCINE 00:00:00 [facility] Branch TDAP (ADACEL) 2019-04-02 Completed [facility] of VACCINE 00:00:00 [facility] Branch TDAP (ADACEL) 2019-04-02 Completed [facility] of VACCINE 00:00:00 [facility] Branch TDAP (ADACEL) 2019-04-02 Completed [facility] of VACCINE 00:00:00 [facility] Branch TDAP (ADACEL) 2019-04-02 Completed [facility] of VACCINE 00:00:00 [facility] Branch TDAP (ADACEL) 2019-04-02 Completed [facility] of VACCINE 00:00:00 [facility] Branch TDAP (ADACEL) 2019-04-02 Completed [facility] of VACCINE 00:00:00 [facility] Branch TDAP (ADACEL) 2019-04-02 Completed [facility] of VACCINE 00:00:00 [facility] Branch TDAP (ADACEL) 2019-04-02 Completed [facility] of VACCINE 00:00:00 [facility] Branch TDAP (ADACEL) 2019-04-02 Completed [facility] of VACCINE 00:00:00 [facility] Branch TDAP (ADACEL) 2019-04-02 Completed [facility] of VACCINE 00:00:00 [facility] Branch TDAP (ADACEL) 2019-04-02 Completed [facility] of VACCINE 00:00:00 [facility] TDAP (ADACEL) 2019-04-02 Completed University of VACCINE 00:00:00 [facility] TDAP (ADACEL) 2019-04-02 Completed University of VACCINE 00:00:00 [facility] TDAP (ADACEL) 2019-04-02 Completed [facility] of VACCINE 00:00:00 [facility] TDAP (ADACEL) 2019-04-02 Completed [facility] of VACCINE 00:00:00 [facility] TDAP (ADACEL) 2019-04-02 Completed [facility] of VACCINE 00:00:00 [facility] TDAP (ADACEL) 2019-04-02 Completed [facility] of VACCINE 00:00:00 [facility] TDAP (ADACEL) 2019-04-02 Completed [facility] of VACCINE 00:00:00 [facility] TDAP (ADACEL) 2019-04-02 Completed [facility] of VACCINE 00:00:00 [facility] TDAP (ADACEL) 2019-04-02 Completed [facility] of VACCINE 00:00:00 [facility] TDAP (ADACEL) 2019-04-02 Completed [facility] of VACCINE 00:00:00 [facility] TDAP (ADACEL) 2019-04-02 Completed [facility] of VACCINE 00:00:00 [facility] Influenza Virus 2018-07-26 Completed Universit y of Vaccine Quad .5 mL 00:00:00 [facility] IM 6+ MO Branch Influenza Virus 2018-07-26 Completed [facility]it y of Vaccine Quad .5 mL 00:00:00 [facility] IM 6+ MO Branch Influenza Virus 2018-07-26 Completed [facility]it y of Vaccine Quad .5 mL 00:00:00 [place] [facility] IM 6+ MO Branch Influenza Virus 2018-07-26 Completed [facility] y of Vaccine Quad .5 mL 00:00:00 [place] [facility] IM 6+ MO Branch Influenza Virus 2018-07-26 Completed [facility] y of Vaccine Quad .5 mL 00:00:00 [place] [facility] IM 6+ MO Branch Influenza Virus 2018-07-26 Completed [facility] y of Vaccine Quad .5 mL 00:00:00 [place] [facility] IM 6+ MO Branch Influenza Virus 2018-07-26 Completed [facility] y of Vaccine Quad .5 mL 00:00:00 [place] [facility] IM 6+ MO Branch Influenza Virus 2018-07-26 Completed [facility] y of Vaccine Quad .5 mL 00:00:00 [place] [facility] IM 6+ MO Branch Influenza Virus 2018-07-26 Completed [facility] y of Vaccine Quad .5 mL 00:00:00 [place] [facility] IM 6+ MO Branch Influenza Virus 2018-07-26 Completed [facility] y of Vaccine Quad .5 mL 00:00:00 [place] [facility] IM 6+ MO Branch Influenza Virus 2018-07-26 Completed [facility] y of Vaccine Quad .5 mL 00:00:00 [place] [facility] IM 6+ MO Branch Influenza Virus 2018-07-26 Completed [facility] y of Vaccine Quad .5 mL 00:00:00 [place] [facility] IM 6+ MO Branch Influenza Virus 2018-07-26 Completed [facility] y of Vaccine Quad .5 mL 00:00:00 [place] [facility] IM 6+ MO Branch Influenza Virus 2018-07-26 Completed [facility]it y of Vaccine Quad .5 mL 00:00:00 [place] [facility] IM 6+ MO Branch Influenza Virus 2018-07-26 Completed [facility] y of Vaccine Quad .5 mL 00:00:00 [place] [facility] IM 6+ MO Branch Influenza Virus 2018-07-26 Completed [facility] y of Vaccine Quad .5 mL 00:00:00 [place] [facility] IM 6+ MO Branch Influenza Virus 2018-07-26 Completed [facility] y of Vaccine Quad .5 mL 00:00:00 [place] [facility] IM 6+ MO Branch Influenza Virus 2018-07-26 Completed [facility] y of Vaccine Quad .5 mL 00:00:00 [place] [facility] IM 6+ MO Branch Influenza Virus 2018-07-26 Completed [facility] y of Vaccine Quad .5 mL 00:00:00 [place] [facility] IM 6+ MO Branch Influenza Virus 2018-07-26 Completed [facility] y of Vaccine Quad .5 mL 00:00:00 [place] [facility] IM 6+ MO Branch Influenza Virus 2018-07-26 Completed [facility] y of Vaccine Quad .5 mL 00:00:00 [place] [facility] IM 6+ MO Branch Influenza Virus 2018-07-26 Completed [facility] y of Vaccine Quad .5 mL 00:00:00 [place] [facility] IM 6+ MO Branch Influenza Virus 2018-07-26 Completed [facility] y of Vaccine Quad .5 mL 00:00:00 [place] [facility] IM 6+ MO Branch Influenza Virus 2018-07-26 Completed [facility] y of Vaccine Quad .5 mL 00:00:00 [place] [facility] IM 6+ MO Branch Influenza Virus 2018-07-26 Completed [facility] y of Vaccine Quad .5 mL 00:00:00 [place] [facility] IM 6+ MO Branch Influenza Virus 2018-07-26 Completed [facility] y of Vaccine Quad .5 mL 00:00:00 [place] [facility] IM 6+ MO Branch Influenza Virus 2018-07-26 Completed [facility] y of Vaccine Quad .5 mL 00:00:00 [place] [facility] IM 6+ MO Branch Influenza Virus 2018-07-26 Completed [facility] y of Vaccine Quad .5 mL 00:00:00 [place] [facility] IM 6+ MO Branch Influenza Virus 2018-07-26 Completed [facility] y of Vaccine Quad .5 mL 00:00:00 [place] [facility] IM 6+ MO Branch Influenza Virus 2018-07-26 Completed [facility] y of Vaccine Quad .5 mL 00:00:00 [place] [facility] IM 6+ MO Branch Influenza Virus 2018-07-26 Completed [facility] y of Vaccine Quad .5 mL 00:00:00 [place] [facility] IM 6+ MO Branch Influenza Virus 2018-07-26 Completed [facility] y of Vaccine Quad .5 mL 00:00:00 [place] [facility] IM 6+ MO Branch Influenza Virus 2018-07-26 Completed [facility] y of Vaccine Quad .5 mL 00:00:00 [place] [facility] IM 6+ MO Branch Influenza Virus 2018-07-26 Completed [facility] y of Vaccine Quad .5 mL 00:00:00 [place] [facility] IM 6+ MO Branch Influenza Virus 2018-07-26 Completed [facility] y of Vaccine Quad .5 mL 00:00:00 [place] [facility] IM 6+ MO Branch Influenza Virus 2018-07-26 Completed [facility] y of Vaccine Quad .5 mL 00:00:00 [place] [facility] IM 6+ MO Branch Influenza Virus 2018-07-26 Completed [facility] y of Vaccine Quad .5 mL 00:00:00 [place] [facility] IM 6+ MO Branch Influenza Virus 2018-07-26 Completed [facility] y of Vaccine Quad .5 mL 00:00:00 [place] [facility] IM 6+ MO Branch Influenza Virus 2018-07-26 Completed [facility] y of Vaccine Quad .5 mL 00:00:00 [place] [facility] IM 6+ MO Branch Influenza Virus 2018-07-26 Completed [facility] y of Vaccine Quad .5 mL 00:00:00 [place] [facility] IM 6+ MO Branch Influenza Virus 2018-07-26 Completed [facility] y of Vaccine Quad .5 mL 00:00:00 [place] [facility] IM 6+ MO Branch Influenza Virus 2018-07-26 Completed [facility] y of Vaccine Quad .5 mL 00:00:00 [place] [facility] IM 6+ MO Branch Influenza Virus 2018-07-26 Completed [facility] y of Vaccine Quad .5 mL 00:00:00 [place] [facility] IM 6+ MO Branch Influenza Virus 2018-07-26 Completed [facility] y of Vaccine Quad .5 mL 00:00:00 [place] [facility] IM 6+ MO Branch Influenza Virus 2018-07-26 Completed [facility] y of Vaccine Quad .5 mL 00:00:00 [place] [facility] 6+ MO Branch Influenza Virus 2018-07-26 Completed [facility] y of Vaccine Quad .5 mL 00:00:00 [place] [facility] IM 6+ MO Branch Influenza Virus 2018-07-26 Completed [facility] y of Vaccine Quad .5 mL 00:00:00 [place] [facility] IM 6+ MO Branch Influenza Virus 2018-07-26 Completed [facility] y of Vaccine Quad .5 mL 00:00:00 [place] [facility] IM 6+ MO Branch Influenza Virus 2018-07-26 Completed [facility] y of Vaccine Quad .5 mL 00:00:00 [place] [facility] IM 6+ MO Branch Influenza Virus 2018-07-26 Completed [facility] y of Vaccine Quad .5 mL 00:00:00 [place] [facility] 6+ MO Branch Influenza Virus 2018-07-26 Completed [facility] y of Vaccine Quad .5 mL 00:00:00 [place] [facility] 6+ MO Branch Influenza Virus 2016-10-05 Completed [facility]it y of Vaccine Quad IM 3+ 00:00:00 [facility] Influenza Virus 2016-10-05 Completed Universit y of Vaccine Quad IM 3+ 00:00:00 [facility] ER Influenza Virus 2016-10-05 Completed Universit y of Vaccine Quad IM 3+ 00:00:00 [facility] Influenza Virus 2016-10-05 Completed Universit y of Vaccine Quad IM 3+ 00:00:00 [facility] ER Influenza Virus 2016-10-05 Completed Universit y of Vaccine [facility] IM 3+ 00:00:00 [facility] ER Influenza Virus 2016-10-05 Completed Universit y of Vaccine [facility] IM 3+ 00:00:00 [facility] ER Influenza Virus 2016-10-05 Completed Universit y of Vaccine [facility] IM 3+ 00:00:00 [facility] ER Influenza Virus 2016-10-05 Completed Universit y of Vaccine [facility] IM 3+ 00:00:00 [facility] ER Influenza Virus 2016-10-05 Completed Universit y of Vaccine [facility] IM 3+ 00:00:00 [facility] ER Influenza Virus 2016-10-05 Completed Universit y of Vaccine [facility] IM 3+ 00:00:00 [facility] ER Influenza Virus 2016-10-05 Completed Universit y of Vaccine [facility] IM 3+ 00:00:00 [facility] ER Influenza Virus 2016-10-05 Completed Universit y of Vaccine [facility] IM 3+ 00:00:00 [facility] ER Influenza Virus 2016-10-05 Completed Universit y of Vaccine [facility] IM 3+ 00:00:00 [facility] ER Influenza Virus 2016-10-05 Completed Universit y of Vaccine [facility] IM 3+ 00:00:00 [facility] ER Influenza Virus 2016-10-05 Completed Universit y of Vaccine [facility] IM 3+ 00:00:00 [facility] ER Influenza Virus 2016-10-05 Completed Universit y of Vaccine [facility] IM 3+ 00:00:00 [facility] ER Influenza Virus 2016-10-05 Completed Universit y of Vaccine [facility] IM 3+ 00:00:00 [facility] ER Influenza Virus 2016-10-05 Completed Universit y of Vaccine [facility] IM 3+ 00:00:00 [facility] ER Influenza Virus 2016-10-05 Completed Universit y of Vaccine [facility] IM 3+ 00:00:00 [facility] ER Influenza Virus 2016-10-05 Completed Universit y of Vaccine [facility] IM 3+ 00:00:00 [facility] ER Influenza Virus 2016-10-05 Completed Universit y of Vaccine [facility] IM 3+ 00:00:00 [facility] ER Influenza Virus 2016-10-05 Completed Universit y of Vaccine [facility] IM 3+ 00:00:00 [facility] ER Influenza Virus 2016-10-05 Completed Universit y of Vaccine [facility] IM 3+ 00:00:00 [facility] ER Influenza Virus 2016-10-05 Completed Universit y of Vaccine [facility] IM 3+ 00:00:00 [facility] ER Influenza Virus 2016-10-05 Completed Universit y of Vaccine [facility] IM 3+ 00:00:00 [facility] ER Influenza Virus 2016-10-05 Completed Universit y of Vaccine [facility] IM 3+ 00:00:00 [facility] ER Influenza Virus 2016-10-05 Completed Universit y of Vaccine [facility] IM 3+ 00:00:00 [facility] ER Influenza Virus 2016-10-05 Completed Universit y of Vaccine [facility] IM 3+ 00:00:00 [facility] ER Influenza Virus 2016-10-05 Completed Universit y of Vaccine [facility] IM 3+ 00:00:00 [facility] ER Influenza Virus 2016-10-05 Completed Universit y of Vaccine [facility] IM 3+ 00:00:00 [facility] ER Influenza Virus 2016-10-05 Completed Universit y of Vaccine [facility] IM 3+ 00:00:00 [facility] ER Influenza Virus 2016-10-05 Completed Universit y of Vaccine [facility] IM 3+ 00:00:00 [facility] ER Influenza Virus 2016-10-05 Completed Universit y of Vaccine [facility] IM 3+ 00:00:00 [facility] ER Influenza Virus 2016-10-05 Completed Universit y of Vaccine [facility] IM 3+ 00:00:00 [facility] ER Influenza Virus 2016-10-05 Completed Universit y of Vaccine [facility] IM 3+ 00:00:00 [facility] ER Influenza Virus 2016-10-05 Completed Universit y of Vaccine [facility] IM 3+ 00:00:00 [facility] ER Influenza Virus 2016-10-05 Completed Universit y of Vaccine [facility] IM 3+ 00:00:00 [facility] ER Influenza Virus 2016-10-05 Completed Universit y of Vaccine [facility] IM 3+ 00:00:00 [facility] ER Influenza Virus 2016-10-05 Completed Universit y of Vaccine [facility] IM 3+ 00:00:00 [facility] ER Influenza Virus 2016-10-05 Completed Universit y of Vaccine [facility] IM 3+ 00:00:00 [facility] ER Influenza Virus 2016-10-05 Completed Universit y of Vaccine [facility] IM 3+ 00:00:00 [facility] ER Influenza Virus 2016-10-05 Completed Universit y of Vaccine [facility] IM 3+ 00:00:00 [facility] ER Influenza Virus 2016-10-05 Completed Universit y of Vaccine [facility] IM 3+ 00:00:00 [facility] ER Influenza Virus 2016-10-05 Completed Universit y of Vaccine [facility] IM 3+ 00:00:00 [facility] ER Influenza Virus 2016-10-05 Completed Universit y of Vaccine [facility] IM 3+ 00:00:00 [facility] ER Influenza Virus 2016-10-05 Completed Universit y of Vaccine [facility] IM 3+ 00:00:00 [facility] ER Influenza Virus 2016-10-05 Completed Universit y of Vaccine [facility] IM 3+ 00:00:00 [facility] ER Influenza Virus 2016-10-05 Completed Universit y of Vaccine [facility] IM 3+ 00:00:00 [facility] ER Influenza Virus 2016-10-05 Completed Universit y of Vaccine [facility] IM 3+ 00:00:00 [facility] ER Influenza Virus 2016-10-05 Completed Universit y of Vaccine [facility] IM 3+ 00:00:00 [facility] ER Influenza Virus 2016-10-05 Completed Universit y of Vaccine [facility] IM 3+ 00:00:00 [facility] Vital Signs Vital Name Observation Time Observation Value Comments Source Heart rate 2020-12-01 14:40:00 67 /min [facility] Body temperature 2020-12-01 14:40:00 36.11 Rachel [facility] Body height 2020-12-01 14:40:00 162.6 cm [facility] Body weight 2020-12-01 14:40:00 98.431 kg [facility] BMI 2020-12-01 14:40:00 37.25 kg/m2 [facility] Systolic blood 2020-12-01 14:40:00 112 mm[Hg] Univer sity of pressure [facility] Diastolic blood 2020-12-01 14:40:00 66 mm[Hg] Unive rsity of pressure [facility] Systolic blood 2020-09-02 14:50:00 138 mm[Hg] Univer sity of pressure [facility] Diastolic blood 2020-09-02 14:50:00 78 mm[Hg] Unive rsity of pressure [facility] Heart rate 2020-09-02 14:50:00 79 /min [facility] Body temperature 2020-09-02 14:50:00 36.61 Rachel Univ ersity [facility] [place] Body height 2020-09-02 14:50:00 162.6 cm [facility] Body weight 2020-09-02 14:50:00 100.699 kg [facility] BMI 2020-09-02 14:50:00 38.11 kg/m2 Universi ty of [facility] Systolic blood 2020-07-15 00:44:00 133 mm[Hg] Univer sity of pressure [facility] Diastolic blood 2020-07-15 00:44:00 83 mm[Hg] Unive rsity of pressure [facility] Heart rate 2020-07-15 00:44:00 74 /min Universi ty of [facility] Body temperature 2020-07-15 00:44:00 36.83 Rahcel Univ ersity of [facility] Respiratory rate 2020-07-15 00:44:00 18 /min Univ ersity of [facility] Body height 2020-07-15 00:44:00 162.6 cm [facility] [place] Body weight 2020-07-15 00:44:00 102.967 kg [facility] BMI 2020-07-15 00:44:00 38.96 kg/m2 Universi ty of [facility] Oxygen saturation in 2020-07-15 00:44:00 98 /min University of Arterial blood by [facility] Pulse oximetry Branch Systolic blood 2020-04-10 13:53:00 124 mm[Hg] Univer sity of pressure [facility] Diastolic blood 2020-04-10 13:53:00 75 mm[Hg] Unive rsity of pressure [facility] Branch Heart rate 2020-04-10 13:53:00 78 /min Universi ty of [facility] Body temperature 2020-04-10 13:53:00 36.72 Rachel Univ ersity of [facility] Body height 2020-04-10 13:53:00 162.6 cm [facility] Body weight 2020-04-10 13:53:00 97.342 kg [facility] BMI 2020-04-10 13:53:00 36.84 kg/m2 Universi ty of [facility] Oxygen saturation in 2020-04-10 13:53:00 99 /min University of Arterial blood by [facility] Pulse oximetry Branch Systolic blood 2019-10-12 19:51:00 125 mm[Hg] Univer sity of pressure [facility] Diastolic blood 2019-10-12 19:51:00 75 mm[Hg] Unive rsity of pressure [facility] Heart rate 2019-10-12 19:51:00 76 /min Universi ty of [facility] Body temperature 2019-10-12 19:51:00 36.39 Rachel Univ ersity of [facility] Body height 2019-10-12 19:51:00 162.6 cm Universi ty of [facility] Body weight 2019-10-12 19:51:00 102.513 kg Universi ty of [facility] BMI 2019-10-12 19:51:00 38.79 kg/m2 Universi ty of [facility] Systolic blood 2019-10-10 15:50:00 131 mm[Hg] Univer sity of pressure [facility] Diastolic blood 2019-10-10 15:50:00 87 mm[Hg] Unive rsity of [facility] Heart rate 2019-10-10 15:50:00 74 /min Universi ty of [facility] Body temperature 2019-10-10 15:50:00 36.89 Rachel Univ ersity of [facility] Respiratory rate 2019-10-10 15:50:00 18 /min Univ ersity of [facility] Body height 2019-10-10 15:50:00 162.6 cm Universi ty of [facility] Body weight 2019-10-10 15:50:00 103.42 kg Universi ty of [facility] BMI 2019-10-10 15:50:00 39.14 kg/m2 Universi ty of [facility] Systolic blood 2019-10-02 14:39:00 116 mm[Hg] Univer sity of pressure [facility] Diastolic blood 2019-10-02 14:39:00 69 mm[Hg] Unive rsity of pressure [facility] Heart rate 2019-10-02 14:39:00 74 /min Universi ty of [facility] Body temperature 2019-10-02 14:39:00 36.39 Rachel Univ ersity of [facility] Body height 2019-10-02 14:39:00 162.6 cm Universi ty of [facility] Body weight 2019-10-02 14:39:00 104.781 kg Universi [facility] BMI 2019-10-02 14:39:00 39.65 kg/m2 Universi ty [facility] Systolic blood 2019-10-12 19:51:00 125 mm[Hg] Univer sity of pressure [facility] Diastolic blood 2019-10-12 19:51:00 75 mm[Hg] [facility] Heart rate 2019-10-12 19:51:00 76 /min [facility] Body temperature 2019-10-12 19:51:00 36.39 Rachel [facility] Body height 2019-10-12 19:51:00 162.6 cm Universi [facility] Body weight 2019-10-12 19:51:00 102.513 kg [facility] BMI 2019-10-12 19:51:00 38.79 kg/m2 [facility] Respiratory rate 2019-10-10 15:50:00 18 /min [facility] Oxygen saturation in 2018-05-17 13:05:00 99 /min [facility] by [facility] Pulse oximetry Branch Procedures Procedure Date / Time Performing Clinician Source Performed US PELVIS COMPLETE WITH 2020-12-10 16:25:59 Requisition, Paper U [facility] TRANSVAGINAL [facility] BI SELF-REFERRED 2020-11-18 14:41:00 Matheus Delgado [facility] SCREENING MAMMOGRAM Medical Bran ch BILATERAL DEXA AXIAL (HIP AND 2020-09-03 16:34:31 Requisition, Paper [facility] SPINE) [facility] Branch XR KNEE 3 VW BILATERAL 2020-09-03 16:14:54 Requisition, Paper [facility] XR CHEST 2 VW 2020-09-03 16:14:34 [facility], [facility] ASSIGNMENT OF BENEFITS 2020-09-03 15:41:42 Doctor Unassigned, No [facility] TOTAL PROTEIN, URINE 2020-07-29 17:04:00 Estevan Lares [facility] RANDOM [facility] CBC WITH DIFF 2020-07-29 16:50:00 Estevan Lares [place] o f [facility] PHYSICIAN ORDERS 2020-07-29 06:01:00 [facility]igned, [facility] MR CERVICAL SPINE WO 2020-05-13 16:46:01 [facility] CONTRAST Medical Branch XR CERVICAL SPINE 4 VW 2020-04-10 15:44:22 [facility]us [facility] Branch CONSENT/REFUSAL FOR 2019-11-02 14:11:02 Doctor Unassigned, No Un iversity [facility] DIAGNOSIS AND TREATMENT Name Medical Branch CONSENT/REFUSAL FOR 2019-11-02 14:11:02 Doctor Unassigned, No [facility] Name Medical Branch ASSIGNMENT OF BENEFITS 2019-11-02 14:10:49 Doctor Unassigned, No [facility] acute hospital Branch ASSIGNMENT OF BENEFITS 2019-11-02 14:10:49 Doctor Unassigned, No [facility] acute [facility] Branch POCT FLU A AND B 2019-10-12 00:00:00 Matheus Delgado [facility] (MOLECULAR) Medical Branch POCT FLU A AND B 2019-10-12 00:00:00 Matheus Delgado [facility] (MOLECULAR) Medical Branch GC & CHLAMYDIA AMPLIFIED 2019-10-10 22:51:00 Kaye Murray Uni [facility] ASSAY Medical Branch TRICHOMONAS AMPLIFIED 2019-10-10 22:51:00 [facility] COMP. METABOLIC PANEL 2019-10-05 14:05:00 [facility] ([id number] Branch LIPID PANEL 2019-10-05 14:05:00 Matheus Delgado [facility] ([id number])(TOTAL Medical Branch CHOLESTEROL, TRIGLYCERIDES, HDL) GLYCOSYLATED HEMOGLOBIN 2019-10-05 14:05:00 Matheus Delgado A [facility] (A1C) Medical Branch COMP. METABOLIC PANEL 2019-10-05 14:05:00 [facility] ([id number] Branch LIPID PANEL 2019-10-05 14:05:00 Adeel Delgadoful A [facility] ([id number])(TOTAL Medical Branch CHOLESTEROL, TRIGLYCERIDES, HDL) GLYCOSYLATED HEMOGLOBIN 2019-10-05 14:05:00 Matheus Delgado [facility] (A1C) [facility] IMMTRAC2 CONSENT 2019-10-02 06:01:00 Doctor Unassigned, No Unive rsity of [facility] IMMTRAC2 CONSENT 2019-10-02 06:01:00 [facility]igned, [facility] 2019-04-09 13:13:00 Matheus Delgado [facility] THYROID STIMULATING 2019-04-09 13:06:00 Matheus Delgado [facility] HORMONE [facility] COMP. METABOLIC PANEL 2019-04-09 13:06:00 [id number] [place] LIPID PANEL 2019-04-09 13:06:00 Matheus Delgado [facility] ([id number])(TOTAL Medical Branch CHOLESTEROL, TRIGLYCERIDES, HDL) CBC WITH DIFFERENTIAL 2019-04-09 13:06:00 [facility] FOR 2019-02-19 05:01:00 Doctor Unassigned, No [facility] RELEASE OF [facility] Encounters Start End Encounter Admission Attending Care Care Encounter Source Date/Time Date/Time Type Type Clinicians Facility Department ID 2021-04-30 2021-04-30 Outpatient Mc WRIGHT [facility] [id number] Univers 09:15:00 09:15:00 MIKE [id number] [facility] 2021-04-30 2021-04-30 Outpatient Mc WRIGHT [facility] [id number] Univers 09:15:00 09:15:00 MIKE [facility] 2021-02-26 2021-02-26 Outpatient Mc WRIGHT [facility] [id number] Univers 09:45:00 09:45:00 MIKE [id number] [facility] 2021-02-26 2021-02-26 Outpatient Mc WRIGHT [facility] [id number] Univers 09:45:00 [facility]:45[facility] 2021-01-30 2021-01-30 [facility] [id number] Univers 00:00:00 00:00:00 Wondiful A Health [id number] ity of [place] [id number] [place] as Professio [phone] Vt dicde nal 044 [place] Office [facility] One 2020-12-10 2020-12-10 Hospital Radiology [facility] [id number] Univers 10:52:59 23:59:00 [address]counter [place] [id number] ity [id number] [phone] [facility] [address] [place] 2020-12-10 2020-12-10 Outpatient R [facility] [id number] Univers 11:00:00 11:00:00 [id number] ity [facility] 2020-12-10 2020-12-10 Outpatient R RADIOLOGY [facility] [id number] Univers 00:00:00 00:00:00 ity [facility] 2020-12-04 2020-12-04 Outpatient [facility] [id number] Univers 15:00:00 15:00:00 [id number] ity [facility] 2020-12-04 2020-12-04 Outpatient R RADIOLOGY [facility] [id number] Univers 00:00:00 00:00:00 ity [facility] 2020-12-03 2020-12-03 Plaster Form Maker Lab, Adc [facility] Pob I [facility] 1.2. [id number] Univers 08:08:16 08:42:44 Visit Matheus Delgado Health [id number] 0 ity of [place] [id number] [place] Professio [phone] Vt dical nal 044 [place] Office [facility] One 2020-12-03 2020-12-03 Outpatient R [facility] [id number] Univers 08:00:00 08:00:00 [id number] ity [facility] 2020-12-03 2020-12-03 [facility] [id number] Univers 08:00:00 08:00:00 WONDIFUL ity o f [facility] 2020-12-01 2020-12-01 Office Jhonny [facility] [id number] Univers 09:29:20 10:23:53 Visit Wondiful A Health [id number] ity of [place] [id number] [place] Professio [phone] [address] One 2020-12-01 2020-12-01 [facility] [id number] Univers 09:30:00 09:30:00 WONDIFUL [id number] ity o f [facility] 2020-12-01 2020-12-01 [facility] [id number] Univers 09:30:00 09:30:00 WONDIFUL ity o f [facility] 2020-11-28 2020-11-28 [facility] [id number] Univers 00:00:00 00:00:00 Wondiful A Health [id number] ity of [place] [id number] [place] Professio [phone] [address] 2020-11-25 2020-11-25 Patient [facility] [id number] Univers 00:00:00 00:00:00 Outreach Earl PRIMARY [id number] i ty of Hitesh [facility] [id number] [place] [phone] [facility] [address] [place] 2020-11-18 2020-11-18 [facility] [id number] Univers 08:16:03 23:59:00 Encounter Wondiful A [place] [id number] ity [id number] [phone] [facility] 800 Branch 2020-11-18 2020-11-18 Plaster Form Maker Erma Winkler Lab Main [facility] 1.2.8 [id number] [id number] Univers 08:19:56 08:34:56 Visit Woodrow Stafford [id number] [id number] Profess[place] [phone] Vt dical [address] 2020-11-18 2020-11-18 Outpatient R JHONNY, [facility] [id number] Univers 08:30:00 08:30:00 WONDIFUL [id number] ity o f [facility] 2020-11-18 2020-11-18 Outpatient R JHONNY, [facility] [id number] Univers 00:00:00 00:00:00 WONDIFUL ity o f [facility] 2020-10-14 2020-10-14 Outpatient R PENNY, [facility] [id number] Univers 08:00:00 08:00:00 KAYE [id number] ity [facility] 2020-10-10 2020-10-10 Outpatient R PENNY, [facility] [id number] Univers 08:00:00 08:00:00 KAYE ity [facility] 2020-09-03 2020-09-03 Hospital Unknown, [facility] [id number] Univers 09:44:37 23:59:00 Encounter Attending [place] [id number] ity of [place] [id number] [facility] [phone] [address] 2020-09-03 2020-09-03 [facility] Radiology [facility] [id number] Univers 09:43:55 09:43:55 Encounter [place] [id number] ity of [place] [id number] [facility] [place] [phone] [address] 2020-09-03 2020-09-03 [facility] Radiology [facility] [id number] Univers 09:40:00 09:42:00 Encounter [place] [id number] ity of [place] [id number] [facility] [phone] [address] 2020-09-03 2020-09-03 Outpatient R [facility] [id number] Univers 09:40:00 09:40:00 [id number] ity [facility] 2020-09-03 2020-09-03 Outpatient R [facility] [id number] Univers 00:00:00 00:00:00 ity of [facility] 2020-09-03 2020-09-03 Orders Doctor MARIAA [id number] Univers 00:00:00 00:00:00 Only Unassigned, JOEY [id number] ity of [facility] [id number] [place] as [phone] [address] 2020-09-02 2020-09-02 Office [facility] [id number] Univers 08:44:14 09:11:24 Visit Wondiful A Health [id number] ity of [place] [id number] [place] Professio [phone] [facility] 044 [facility] 2020-09-02 2020-09-02 [facility] [id number] Univers 08:45:00 08:45:00 WONDIFUL [id number] ity o f [facility] 2020-09-02 2020-09-02 [facility] [id number] Univers 08:45:00 08:45:00 WONDIFUL ity o f [facility] 2020-08-28 2020-08-28 [facility] [id number] Univers 00:00:00 00:00:00 Wondiful A Health [id number] ity of [place] [id number] [place] Professio [phone] [facility] 044 [facility] 2020-08-14 2020-08-14 Out[facility] [id number] Univers 15:30:00 15:30:00 WONDIFUL [id number] ity o f [facility] 2020-07-29 2020-07-29 Plaster Form Maker Erma Winkler Lab Main [facility] 1.2.8 40.114 [id number] Univers 10:29:41 10:44:41 Visit Woodrow Stafford [id number] [id number] Profess[place] [phone] Vt dical [facility] 2020-07-29 2020-07-29 Outpatient [facility] [id number] Univers 10:30:00 10:30:00 [id number] ity [facility] 2020-07-29 2020-07-29 Outpatient R SHAVONNE, [facility] [id number] Univers 10:30:00 10:30:00 WOODROW ity [facility] 2020-07-29 2020-07-29 Orders Doctor MARIAA [id number] [id number] Univers 00:00:00 00:00:00 Only Unassigned, JOEY [id number] [facility] [id number] [place] as [phone] [address] 2020-07-14 2020-07-14 Urgent Provider, [facility] 1.2.840.114 [id number] Univers 18:32:06 19:39:54 Care Simeon [facility] [id number] ity of [place] [id number] [place] Professio [phone] Vt dic[address] Office [facility] One 2020-07-14 2020-07-14 Outpatient R [facility] [id number] Univers 18:40:00 18:40:00 ity [facility] 2020-07-14 2020-07-14 Outpatient R [facility] [id number] Univers 18:40:00 18:40:00 ity of [facility] 2020-06-02 2020-06-02 Krzysztof [facility] 1.2.840.114 [id number] Univers 00:00:00 00:00:00 Wondiful A Health [id number] ity of [place] [id number] [place] Professio [phone] Vt dical nal [address] [place] [address] Building One 2020-05-30 2020-05-30 [facility] [id number] Univers 10:15:00 10:15:00 CECIL [id number] ity [facility] 2020-05-30 2020-05-30 Outpatient Mc [facility] [id number] Univers 10:15:00 10:15:00 CECIL ity [facility] 2020-05-23 2020-05-23 Outpatient [facility] [id number] [id number] Univers 10:00:00 10:00:00 CECIL [id number] ity [facility] 2020-05-23 2020-05-23 Outpatient Mc GOOD [facility] [id number] Univers 10:00:00 10:00:00 [facility] 2020-05-13 [facility] [id number] Univers 11:00:00 23:59:00 Encounter Wondibeth Tolentino [id number] ity [facility] 4.2.7.2.686 [facility] [phone] [place] [id number] [place] 2020-05-13 2020-05-13 Outpatient Mc DELGADO [facility] [id number] N-20 Univers 00:00:00 00:00:00 WONDIFUL ity o f [facility] 2020-05-13 2020-05-13 Outpatient Mc DELGADO [facility] [id number] Univers 00:00:00 00:00:00 WONDIFUL ity o f [facility] 2020-05-08 2020-05-08 Outpatient R JHONNY [facility] [id number] N-20 Univers 00:00:00 00:00:00 WONDIFUL [id number] ity o f [facility] 2020-04-29 2020-04-29 Outpatient R JHONNY [facility] [id number] N-20 Univers 08:15:00 08:15:00 WONDIFUL [id number] ity o [facility] 2020-04-29 2020-04-29 Outpatient Mc DELGADO [facility] [id number] Univers 08:15:00 08:15:00 WONDIFUL ity o f [facility] 2020-04-16 2020-04-16 Case [facility] 1.2.840.114 [id number] Univers 00:00:00 00:00:00 Management Wondibeth Tolentino 350.1.13.10 ity [facility] 4.2.7.2.[address] [facility] [phone] Vt [address] 2020-04-16 2020-04-16 [facility] 1.2.840.114 [id number] Univers 00:00:00 00:00:00 Wondiful A Health 350.1.13.10 ity of [place] 4.2.7.2.686 [place] [facility] [phone] [address] 2020-04-10 2020-04-10 Hospital [facility] 1.2.105.325 [id number] Univers 09:46:00 23:59:00 Encounter Wondiful A [place] 350.1.13.10 [place]y [place] [phone] [facility] [address] [place] 2020-04-10 2020-04-10 Office [facility] 1.2.840.114 [id number] Univers 08:36:42 09:28:21 Visit Wondiful A [place] 350.1.13.10 [place] [phone] [address] 2020-04-10 2020-04-10 Outpatient R [facility] [id number] Univers 08:00:00 08:00:00 [id number] ity of [facility] 2020-04-10 2020-04-10 Outpatient [facility] [id number] Univers 08:00:00 08:00:00 ANDREW ity of [facility] 2020-04-03 2020-04-03 Telephone [facility] 1.2.840.114 [id number] Univers 00:00:00 00:00:00 Wondiful A Health 350.1.13.10 ity of [place] 4.2.7.2.686 [place] [facility] [phone] [address] 2020-04-01 2020-04-01 Outpatient [facility] [id number] Univers 09:30:00 09:30:00 WONDIFUL ity o f [facility] 2020-03-12 2020-03-12 [facility] 1.2.840.114 [id number] Univers 00:00:00 00:00:00 Wondiful A Health 350.1.13.10 ity of [place] 4.2.7.2.686 [place] [facility] [phone] [address] 2020-02-25 2020-02-25 [facility] 1.2.840.114 [id number] Univers 00:00:00 00:00:00 Wondiful A Health 350.1.13.10 ity of [place] 4.2.7.2.686 [place] [facility] [phone] [address] 2020-01-10 2020-01-10 Telemedici [facility] 1.2.840.114 [id number] Univers 07:21:45 16:07:11 ne Visit Wondiful A [place] 350.1.13.10 [place] [phone] [address] 2020-01-10 2020-01-10 Outpatient R JHONNY [facility] [id number] N-20 Univers 15:30:00 15:30:00 WONDIFUL ity o [facility] 2020-01-10 2020-01-10 Outpatient R JHONNY [facility] [id number] Univers 15:30:00 15:30:00 WONDIFUL ity o [facility] 2019-12-27 2019-12-27 Office [facility] 1.2.840.114 [id number] Univers 09:14:32 09:29:32 Visit Wondiful A [place] 350.1.13.10 [place] [phone] [address] 2019-12-27 2019-12-27 Outpatient JHONNY [facility] [id number] N-20 Univers 09:15:00 09:15:00 WONDIFUL [id number] ity o [facility] 2019-12-27 2019-12-27 Outpatient R JHONNY [facility] [id number] Univers 09:15:00 09:15:00 WONDIFUL ity o [facility] 2019-12-27 2019-12-27 Telephone [facility] 1.2.840.114 [id number] Univers 00:00:00 00:00:00 Wondiful A Health 350.1.13.10 ity of [place] 4.2.7.2.686 [place] [facility] [phone] Vt dical nal [address] [place] [address] 2019-11-05 2019-11-05 Refill Jhonny, [facility] 1.2.840.114 [id number] Univers 00:00:00 00:00:00 Wondiful A Health 350.1.13.10 ity of [place] 4.2.7.2.686 [place] [facility] [phone] Vt dical nal [address] [place] [address] 2019-11-02 2019-11-02 Outpatient R PENNY [facility] [id number] Univers 08:12:01 23:59:00 KAYE ity of [facility] 2019-11-02 2019-11-02 [facility], 1.2.840.7 [id number] Univers 08:12:00 23:59:00 Encounter Kaye 21972.1.1 it y of 3.104.2.7 [place] .3.795747 Medica l .[address] [place] 2019-11-02 2019-11-02 Orders Doctor 1.2.840.6 [id number] Univers 00:00:00 00:00:00 Only Unassigned, 43310.1.1 ity of [place] 3.104.2.7 [place] .3.296071 Medica l .8 [place] 2019-10-12 2019-10-12 Office Jhonny, 1.2.840.4 [id number] Univers 13:42:37 14:22:36 Visit Wondiful A 55917.1.1 i ty of 3.104.2.7 [place] .3.891325 Medica l .8 [place] 2019-10-12 2019-10-12 Patient Doctor [facility] 1.2.840.114 [id number] Univers 00:00:00 00:00:00 Secure Msg Unassigned, Health 350.1.13.10 ity of [place] 4.2.7.2.686 [place] [facility] [phone] Vt dical nal 044 [facility] 2019-10-10 2019-10-10 Office Lizet Seymour 1.2.840.1 [id number] Univers 09:26:32 10:32:44 Visit AlcidesshaniceKaye chance 22589.1.1 ity of 3.104.2.7 [place] .3.736296 Medica l .8 [place] 2019-10-05 2019-10-05 Plaster Form Maker Matheus Delgado 1.2.840.1 1 [id number] Univers 08:04:25 08:21:59 Visit Lab, [place] 60230.1.1 ity of 3.104.2.7 [place] .3.876862 Medica l .8 [place] 2019-10-02 2019-10-02 Office Jhonny 1.2.840.4 [id number] Univers 08:28:34 09:17:48 Visit Toddtiffanie Agarwal 30729.1.1 i ty of 3.104.2.7 [place] .3.900533 Medica l .8 [place] 2019-10-02 2019-10-02 Orders Doctor 1.2.840.0 [id number] Univers 00:00:00 00:00:00 Only Unassigned, 25414.1.1 ity of [place] 3.104.2.7 [place] .3.213315 Medica l .8 [place] 2019-04-20 2019-04-20 Refill Jhonny [facility] 1.2.840.114 [id number] Univers 00:00:00 00:00:00 Todddiful A Health 350.1.13.10 ity of [place] 4.2.7.2.686 [place] [facility] [phone] Vt dical nal 044 [facility] 2019-04-09 2019-04-09 Plaster Form Maker Lab, [facility] Fam [place] 1.2. 840.114 [id number] Univers 08:04:10 08:14:42 Visit Harlan [facility] 350.1.13.10 ity of [place] 4.2.7.2.686 [place] [facility] [phone] Vt dical nal 044 [facility] 2019-02-19 2019-02-19 Orders Doctor MARIAA 1.2.840.114 [id number] Univers 00:00:00 00:00:00 Only Unassigned, JOEY 350.1.13.10 ity of [place] [facility] 4.2.7.2.686 [facility] as [phone] [place] [address] Branch Results Test Description Test Time Test Results Result Source Comments Comments US PELVIS 2020-11-12 HISTORY: Menorrhagia. Uni versity of COMPLETE WITH 1 TECHNIQUE: Both [facility] TRANSVAGINAL 16:34:52 transabdominal and [facility] transvaginal pelvic ultrasound studieswere completed by the technologist. FINDINGS: Comparison is made with prior ultrasound study of September 2016. Uterus is slightly enlarged, measures approximately 8.6 x 4.6 x 6.0 cm insize with erosion is echo texture of the myometrium. At least 3 fibroidsare measured by the technologist, 17 x 20 x 21 mm, 13 x 13 x 10 mm and 11 x10 x 11 mm in size located along the anterior wall in the fundus and leftside of the upper body of the uterus respectively. All of the fibroidsappear to be intramural. Additional subcentimeter fibroid also suspected lila submucosal left locations. Small nabothian cysts are seen in the cervix, the largest is 8 mm .Endometrial echo complex is 10 mm. No free fluid in the cul-de-sac. Right ovary is 1.9 x 1.8 cm ?and left ovary is 2.2 x 1.5 cm. There ispossible 10 mm corpus luteum in the right ovary. CONCLUSIONS: ?Slightly enlarged uterus with new findings of multiple smallfibroids since September 2016 study. [facility], Radiant Results Inft User - 12/10/2020 11:35 AM CDTHISTORY: Menorrhagia.TECHNIQUE : Both transabdominal and transvaginal pelvic ultrasound studieswere completed by the technologist.FINDINGS : Comparison is made with prior ultrasound study of September 2016.Uterus is slightly enlarged, measures approximately 8.6 x 4.6 x 6.0 cm insize with erosion is echo texture of the myometrium. At least 3 fibroidsare measured by the technologist, 17 x 20 x 21 mm, 13 x 13 x 10 mm and 11 x10 x 11 mm in size located along the anterior wall in the fundus and leftside of the upper body of the uterus respectively. All of the fibroidsappear to be intramural. Additional subcentimeter fibroid also suspected lila submucosal left locations.Small nabothian cysts are seen in the cervix, the largest is 8 mm .Endometrial echo complex is 10 mm. No free fluid in the cul-de-sac. Right ovary is 1.9 x 1.8 cm and left ovary is 2.2 x 1.5 cm. There ispossible 10 mm corpus luteum in the right ovary.CONCLUSIONS: Slightly enlarged uterus with new findings of multiple smallfibroids since September 2016 study. BI SELF-REFERRED Examination:[facility] ersity of SCREENING 9 SELF-REFERRED [facility] al MAMMOGRAM 18:33:40 SCREENING MAMMOGRAM Branc h BILATERAL BILATERAL History:Patient is 50 year old and is seen for: ?Routine. Computer-aided detection (CAD) utilized. Comparisons: 11/02/2019 BI SCREENING MAMMOGRAM BILATERAL, 10/17/2018 BI SCREENING TOMOSYNTHESIS BILATERAL, 10/08/2016 DIGITAL MAMMOGRAM, SCREENING, and 09/24/2015 DIGITAL MAMMOGRAM, SCREENING Findings:The breasts are heterogeneously dense, which may obscure small masses. There is no evidence of suspicious masses, calcifications, or other abnormal findings. Impression:No mammographic evidence of malignancy. Recommendation:Annual mammographic follow-up BI-RADS Category: Both 1 - Negative DEXA AXIAL (HIP 2020-08-13 HISTORY: Osteoporosis University of AND SPINE) 3 screening study. [facility] dical 16:48:07 TECHNIQUE: Bone Branch density estimation is done using DEXA scan, over the righthip and lumbar spines. FINDINGS: Details of the results are enclosed for your review. The summaryis as follows. RIGHT HIP:BMD value is 2.853 gm/sq cm, with T-score of -1.2. Estimated BMD in theneck is 0.798 g/sq cm with T score of -1.7. LUMBAR SPINES:Average BMD value from L1 through L4 is 1.147 gm/sq cm, with T-score - 0.4. CONCLUSION: Osteopenia in right femur. ASSESSMENT: WHO-definitions: T-score normal: +/- 1 SD around the meanosteopenia: >1 to 2.4 SD below the meanosteoporosis: >2.5 SD below the meanFracture risk doubles for each 1.5 SD below the mean. [facility], [facility] - 09/03/2020 10:49 AM CSTHISTORY: Osteoporosis screening study.TECHNIQUE: Bone density estimation is done using DEXA scan, over the righthip and lumbar spines.FINDINGS: Details of the results are enclosed for your review. The summaryis as follows.RIGHT HIP:BMD value is 2.853 gm/sq cm, with T-score of -1.2. Estimated BMD in theneck is 0.798 g/sq cm with T score of -1.7.LUMBAR SPINES:Average BMD value from L1 through L4 is 1.147 gm/sq cm, with T-score - 0.4.CONCLUSION: Osteopenia in right femur.ASSESSMENT: WHO-definitions: T-scorenormal: +/- 1 SD around the meanosteopenia: >1 to 2.4 SD below the meanosteoporosis: >2.5 SD below the meanFracture risk doubles for each 1.5 SD below the mean. XR KNEE 3 2020-08-13 HISTORY: Primary Univer sity of BILATERAL 3 osteoarthritis of [facility] 16:19:56 both knees. FINDINGS: [facility] AP, lateral, oblique views of right knee as well as left knee areobtained and compared with 12/15/2016 study. No acute fracture ordislocation. No aggressive bone lesions or knee joint effusion detected. Tricompartment degenerative osteoarthritis is noted affecting both knees,more severely affecting the medial compartment with narrowed medial kneejoint space, subchondral sclerosis in the weightbearing medialfemoral/tibial condyles and osteophytes along the articular edges of thebones. Lateral compartment of the left knee joint is relatively minimallyinvolved with degenerative change. Due to narrowing of medial knee jointspace, mild bilateral genu varus deformity have developed. CONCLUSIONS: Tricompartment degenerative osteoarthritis of both knees,slightly more severe in medial compartment. Right knee joint showedslightly more degenerative changes compared with the left knee. [facility], Radiant Results [facility] User - 09/03/2020 10:21 AM CSTHISTORY: Primary osteoarthritis of both knees.FINDINGS: AP, lateral, oblique views of right knee as well as left knee areobtained and compared with 12/15/2016 study. No acute fracture ordislocation. No aggressive bone lesions or knee joint effusion detected.Tricompartme nt degenerative osteoarthritis is noted affecting both knees,more severely affecting the medial compartment with narrowed medial kneejoint space, subchondral sclerosis in the weightbearing medialfemoral/tibial condyles and osteophytes along the articular edges of thebones. Lateral compartment of the left knee joint is relatively minimallyinvolved with degenerative change. Due to narrowing of medial knee jointspace, mild bilateral genu varus deformity have developed.CONCLUSIONS : Tricompartment degenerative osteoarthritis of both knees,slightly more severe in medial compartment. Right knee joint showedslightly more degenerative changes compared with the left knee. XR CHEST 2 VW 2020-08-13 HISTORY: Abnormal Univ ersity of 3 immunological finding [place] [facility] 16:17:50 in serum. TECHNIQUE: Bran ch PA and lateral views of the chest are obtained. The paranasalmade with 04/17/2018 study. FINDINGS: No acute pneumonia detected. No pneumothorax or pleural effusionor pulmonary congestion. Cardiothoracic ratio of approximately 13.7/27.3 cmis consistent with normal cardiac size. Mild degenerative changes are seenin the middle thoracic spines. Small granuloma noted in the lateral rightlower lung, unchanged. CONCLUSIONS: No sign of acute cardiopulmonary disease.[facility], Radiant Results Inft User - 09/03/2020 10:19 AM CSTHISTORY: Abnormal immunological finding in serum.TECHNIQUE: PA and lateral views of the chest are obtained. The paranasalmade with 04/17/2018 study.FINDINGS: No acute pneumonia detected. No pneumothorax or pleural effusionor pulmonary congestion. Cardiothoracic ratio of approximately 13.7/27.3 cmis consistent with normal cardiac size. Mild degenerative changes are seenin the middle thoracic spines. Small granuloma noted in the lateral rightlower lung, unchanged.CONCLUSIONS : No sign of acute cardiopulmonary disease. TOTAL PROTEIN, URINE RANDOM 2020-07-29 17:28:00 Test Item Value Reference Range Interpretation Comme nts T. PROT U (test code = 2888-6) 9 mg/dL [facility] WITH [id number] 16:57:00 Test Item Value Reference Range Interpretation Comments WBC (test code = See_Comment [Automated message] 6690-2) The system [employer] generated this result transmitted ref erence range: 4.30 - 1 1.10 10*3/?L. The re ference range was not u sed to interpret this result as normal/abnor mal. RBC (test code = See_Comment [Automated message] 789-8) The system [employer] generated this result transmitted ref erence range: 3.93 - 5 .25 10*6/?L. The re ference range was not u sed to interpret this result as normal/abnor mal. HGB (test code = 13.8 g/dL 11.6-15 718-7) HCT (test code = 41.3 % 35.7-45.2 4544-3) MCV (test code = 90.0 fL 80.6-95.5 787-2) MCH (test code = 30.1 pg 25.9-32.8 785-6) MCHC (test code = 33.4 g/dL 31.6-35.1 786-4) RDW-SD (test code 42.3 fL 39-49.9 = 88971-2) RDW-CV (test code 12.8 % 12-15.5 = 788-0) PLT (test code = See_Comment [Automated message] 777-3) The system [employer] generated this result transmitted ref erence range: 166 - 35 8 10*3/?L. The re ference range was not u sed to interpret this result as normal/abnor mal. MPV (test code = 10.1 fL 9.5-12.9 82499-5) NRBC/100 WBC (test See_Comment [Automat ed message] code = 8487964041) The syste m which generated this result transmitted ref erence range: 0.0 - 10 .0 /100 WBCs. The refer ence range was not u sed to interpret this result as normal/abnor mal. NRBC x10^3 (test <0.01 See_Comment [Automated message] code = 2769919904) The syste m which generated this result transmitted ref erence range: 10*3/?L. The reference range was not used to interpr et this result as normal/abnormal . GRAN MAT (NEUT) % 58.4 % (test code = 770-8) IMM GRAN % (test 0.50 % code = 8144124612) LYMPH % (test code 33.0 % = 736-9) MONO % (test code 5.7 % = 5905-5) EOS % (test code = 1.5 % 713-8) BASO % (test code 0.9 % = 706-2) GRAN MAT 4.81 10*3/uL 1.88-7.09 x10^3(ANC) (test code = 7052823387) IMM GRAN x10^3 0.04 10*3/uL 0-0.06 (test code = 7143399882) LYMPH x10^3 (test 2.71 10*3/uL 1.32-3.29 code = 731-0) MONO x10^3 (test 0.47 10*3/uL 0.33-0.92 code = 742-7) EOS x10^3 (test 0.12 10*3/uL 0.03-0.39 code = 711-2) BASO x10^3 (test 0.07 10*3/uL 0.01-0.07 code = 704-7) [facility] CERVICAL SPINE WO [id number] 16:57:54HISTORY: Neck pain with radiculopathy symptoms. TECHNIQUE: T1/T2/STIR sagittal and T1/T2 FRFSE/2D MERGE axial studies ofcervical spines were obtained. FINDINGS: Comparison has been made with cervical spine radiographs date04/10/2020. No compression fracture or abnormal marrow changes of the bones detected.Spinal canal is of adequate size and no intrinsic cervical cord pathologydetected. The anatomy of the craniocervical junction appears normal. C2-C3: Mild right facet arthritis. C3-C4: Minimal diffuse bulging of the disc, additional encroachment fromdorsal aspect by thickened ligamentum flavum causing mild spinal stenosiswith flattening of the left side of the spinal cord in AP dimension. Nosignificant foraminal encroachment or facet arthritis. C4-C5: Degenerative disc disease with narrowing of the disc space byapproximately 40%, large disc osteophyte complex encroaching into rightside of the spinal canal causing right sided spinal/lateral recess stenosisand uncovertebral osteophytes causing right foraminal stenosis withflattening of the spinal cord in AP dimension resulting in 2 diffuse cordcompression, increasing in severity from left to right and pressure on theright nerve root. C5-C6: Minimal disc bulge encroaching into the spinal canal with additionalencroachment from dorsal aspect by thickened ligaments causing mild spinalstenosis with mild flattening of the left side of the spinal cord in APdimension without significant cord compression. No significant foraminalencroachment. Mild bilateral facet arthritis is noted. C6-C7: Unremarkable. C7-T1: Unremarkable. Incidental note made of facet arthritis and upper thoracic spines, mostprominent at T2-T3 level. CONCLUSIONS:1. Significant spinal stenosis and right foraminal stenosis at C4- W7xrbbkpqkv to degenerative disc disease with prominent disc osteophytecomplex encroaching throughout the spinal canal causing diffuse cordcompression, in creasing in severity from left to right with moderate rightnerve root compression.2. Less severe spinal stenosis at C3-C4 and C5-C6 with mild flattening ofthe spinal cord in AP dimension at both levelswithout significant cordcompression or nerve root compression. [facility], Radiant Results Inft User - 05/13/2020 11:58 AM CDTHISTORY: Neck pain with radiculopathy symptoms.TECHNIQUE: T1/T2/STIR sagittal and T1/T2 FRFSE/2D MERGE axial studies ofcervical spines were obtained.FINDINGS: Comparison has been made with cervical spine radiographs date04/10/2020.No compression fracture or abnormal marrow changes of the bones detected.Spinal canal is of adequate size and no intrinsic cervical cord pathologydetected. The anatomy of the craniocervical junction appears normal.C2- C3: Mild right facet arthritis.C3-C4: Minimal diffuse bulging of the disc, additional encroachment fromdorsal aspect by thickened ligamentum flavum causing mild spinal stenosiswith flattening of the left side of the spinal cord in AP dimension. Nosignificant foraminal encroachment or facet arthritis.C4-C5: Degenerative disc disease with narrowing of the disc space byapproximately 40%, large disc osteophyte complex encroaching into rightside of the spinal canal causing right sided spinal/lateral recess stenosisand uncovertebral osteophytes causing right foraminal stenosis withflattening of the spinal cord in AP dimension resulting in2 diffuse cordcompression, increasing in severity from left to right and pressure on theright nerve root.C5-C6: Minimal disc bulge encroaching into the spinal canal with additionalencroachment from dorsal aspect by thickened ligaments causing mild spinalstenosis with mild flattening of the left side of the spinal cord in APdimension without significant cord compression. No significant foraminalencroachment. Mild bilateral facet arthritis is noted.C6-C7: Unremarkable.C7-T1: Unremarkable.Incidental note made of facet arthritis and upper thoracic spines, mostprominent at T2-T3 level.CONCLUSIONS:1. Significant spinal stenosis and right foraminal stenosis at C4-O0bnuwxeqfd to degenerative disc disease with prominent disc osteophytecomplex encroaching throughout the spinal canal causing diffuse cordcompression, increasing in severity from left to right with moderate rightnerve root compression.2. Lesssevere spinal stenosis at C3-C4 and C5-C6 with mild flattening ofthe spinal cord in AP dimension at both levels without significant cordcompression or nerve root compression.[facility] 4 [id number] 15:53:51HISTORY: ?Neck pain with radiculopathy symptoms. FINDINGS: Comparison is made with 11/29/2017 study. AP, lateral, swimmer's, open-mouth odontoid and 2 oblique views of thecervical spine are obtained which showed no acute fracture or dislocation.Straightening of the normal cervical lordosis is suggestive of neck musclespasm. Changes of mild to moderate degenerative disc disease noted at C4-C5 in theform of narrowing of the disc space by approximately 50%, osteophytes alongthe ventral vertebral margins, minimal retrolisthesis of C4 over C5 andsmall osteophytes causing spinal stenosis. Minimal degenerative changes in the ventral vertebral margins at C5- G6sdxylez narrowing of the disc space. Oblique views showed foraminal encroachment by uncovertebral osteophytes onboth sides, right side more than left at C4-C5. AP view showed prominent bilateral cervical ribs. CONCLUSIONS: 1. No acute fracture or dislocation. Probable neck muscle spasm.2. Degenerative disc disease and uncovertebral joint degenerative diseaseat C4-C5.3. Prominent bilateral cervical ribs. [facility], Radiant Results Inft User - 04/10/2020 10:54 AM CDTHISTORY: Neck pain with radiculopathy symptoms.FINDINGS: Comparison is made with 11/29/2017 study.AP, lateral, swimmer's, open-mouth odontoid and 2 oblique views of thecervical spine areobtained which showed no acute fracture or dislocation.Straightening of the normal cervical lordosisis suggestive of neck musclespasm.Changes of mild to moderate degenerative disc disease noted at C4-C5 in theform of narrowing of the disc space by approximately 50%, osteophytes alongthe ventral vertebral margins, minimal retrolisthesis of C4 over C5 andsmall osteophytes causing spinal stenosis.Minimal degenerative changes in the ventral vertebral margins at C5-J0qjormuu narrowing of the disc space.Oblique views showed foraminal encroachment by uncovertebral osteophytes onboth sides, right side more than left at C4-C5.AP view showed prominent bilateral cervical ribs.CONCLUSIONS: 1. No acute fracture or dislocation. Probable neck muscle spasm.2. Degenerative disc disease and uncovertebral joint degenerative diseaseat C4-C5.3. Prominent bilateral cervical ribs.[facility] FLU A AND B (MOLECULAR)2019-10-12 20:15:00 Test Item Value Reference Range Interpretation Comments POCT INFLUENZA A (test code = negative Negative - Negative 3840) POCT INFLUENZA B (test code = negative Negative - Negative 3841) Lab Interpretation (test code = Normal 82606-4) [facility] FLU A AND B (MOLECULAR)2019-10-12 20:15:00 Test Item Value Reference Range Interpretation Comments POCT INFLUENZA A (test code = negative Negative - Negative 3840) POCT INFLUENZA B (test code = negative Negative - Negative 3841) Lab Interpretation (test code = Normal 70226-2) [facility] FLU A AND B (MOLECULAR)2019-10-12 20:15:00 Test Item Value Reference Range Interpretation Comments POCT INFLUENZA A (test code = negative Negative - Negative 3840) POCT INFLUENZA B (test code = negative Negative - Negative 3841) Lab Interpretation (test code = Normal 27053-9) [facility] [id number] 19:27:00 Test Item Value Reference Range Interpretation Comments Trichomonas Nucleic Acid (test code Negative Negative = 85595-9) Lab Interpretation (test code = Normal 03307-4) [facility] CHLAMYDIA AMPLIFIED [id number] 21:53:00 Test Item Value Reference Range Interpretation Comments C. trachomatis Nucleic Acid (test Negative Negative code = 65293-1) N. gonorrhoeae Nucleic Acid (test Negative Negative code = 40916-9) Lab Interpretation (test code = Normal 96450-2) [facility] (A1C)2019-10-05 17:39:00 Test Item Value Reference Interpretation Comments Range HGB A1C (test code = See_Comment H [Autom ated 4548-4) message] The system which generated this result transmitted reference range : 4.0 - 6.0 % NGSP. The reference range was not used to interpret this result as normal/abnormal . JULIANNA (test code = %A1C (NGSP) JULIANNA) Interpretation (ADA)4.8-5.6 ? ? Normal or (Non-Diabetic Range)5.7-6.4 ? ? Increased Risk (Pre-Diabetic)>6.5 ?Diabetes Indicated Lab Interpretation Abnormal (test code = 87191-1) [facility]2019-10-05 17:39:00 Test Item Value Reference Interpretation Comments Range HGB A1C (test code = See_Comment H [Autom ated 4548-4) message] The system which generated this result transmitted reference range : 4.0 - 6.0 % NGSP. The reference range was not used to interpret this result as normal/abnormal . JULIANNA (test code = %A1C (NGSP) JULIANNA) Interpretation (ADA)4.8-5.6 ? ? Normal or (Non-Diabetic Range)5.7-6.4 ? ? Increased Risk (Pre-Diabetic)>6.5 ?Diabetes Indicated Lab Interpretation Abnormal (test code = 03584-6) [facility] (03939)2019-10-05 16:55:00 Test Item Value Reference Range Interpretation Comments NA (test code = 140 mmol/L 135-145 8424098599) K (test code = 4.1 mmol/L 3.5-5 5071780678) CL (test code = 108 mmol/L 98-108 0958588090) CO2 TOTAL (test code = 24 mmol/L 23-31 8719959839) AGAP (test code = 2-16 0233931120) BUN (test code = 13 mg/dL 7-23 6420290917) GLUCOSE (test code = 86 mg/dL 70-110 5212007201) CREATININE (test code = 0.44 mg/dL 0.5-1.04 L 3248210296) TOTAL BILI (test code = 0.4 mg/dL 0.1-1.0 1905278618) CALCIUM (test code = 8.9 mg/dL 8.6-10.6 1964101982) T PROTEIN (test code = 7.1 g/dL 6.3-8.2 3944057537) ALBUMIN (test code = 4.1 g/dL 3.5-5 4381454459) ALK PHOS (test code = 63 U/L 34-122 9934752204) ALTv (test code = 14 U/L 5-35 1742-6) AST(SGOT) (test code = 19 U/L 13-40 1813481707) eGFR Calculation mL/min/1.73m2 (Non-) (test code = 7922037419) eGFR Calculation mL/min/1.73m2 () (test code = 4326001661) JULIANNA (test code = JULIANNA) Association of Glomerular Filtration Rate (GFR) and Staging of Kidney Disease* + --+ --+ ------+| GFR (mL/min/1.73 m2) ?| With Kidney Damage ?| ?Without Kidney Damage+ --------+ --------+ +| ?>90 ?| ?Stage one ?| ? Normal ?+ ---+ ---+ -------+| ?60-89 ?| ?Stage two ?| ? Decreased GFR ? + --+ --+ ------+| ?30-59 ?| ?Stage three ?| ? Stage three ? + --+ --+ ------+| ?15-29 ?| ?Stage four ? | ? Stage four ?+ ---+ ---+ -------+| ?<15 (or dialysis) ? ?| ?Stage five ? | ? Stage five ?+ ---+ ---+ -------+ *Each stage assumes the associated GFR level has been in effect for at least three months. ?Stages 1 to 5, with or without kidney disease, indicate chronic kidney disease. Notes: Determination of stages one and two (with eGFR >59mL/min/1.73 m2) requires estimation of kidney damage for at least three months as defined by structural or functional abnormalities of the kidney, manifested by either:Pathological abnormalities or Markers of kidney damage (including abnormalities in the composition of the blood or urine or abnormalities in imaging tests). Lab Interpretation Abnormal (test code = 13466-2) [facility] (70149)(TOTAL CHOLESTEROL, TRIGLYCERIDES, HDL)2019-10-05 16:55:00 Test Item Value Reference Range Interpretation Comments CHOL (test code = 206 mg/dL 120-200 H 8879517161) HDL (test code = 46 mg/dL >50 L 1863525130) HDLC RATIO (test code = See_Comment [Au tomated message] 1918330249) The system [employer] generated this result transmit geronimo reference range : <=4.5. The refe rence range was not u sed to interpret th is result as normal/abnormal . TRIG (test code = 109 mg/dL 30-170 4694675199) LDL CHOL (test code = 138 mg/dL See_Comment [Auto mated message] 27153-7) The system [employer] generated this result transmit geronimo reference range : <=160. The refe rence range was not u sed to interpret th is result as normal/abnormal . VLDL (test code = 22 mg/dL 5-60 5820599814) Lab Interpretation (test Abnormal code = 76522-9) [facility] (41106)2019-10-05 16:55:00 Test Item Value Reference Range Interpretation Comments NA (test code = 140 mmol/L 135-145 9602767514) K (test code = 4.1 mmol/L 3.5-5 8870291492) CL (test code = 108 mmol/L 98-108 9604250539) CO2 TOTAL (test code = 24 mmol/L 23-31 0793227568) AGAP (test code = 2-16 0933181631) BUN (test code = 13 mg/dL 7-23 1360444312) GLUCOSE (test code = 86 mg/dL 70-110 9817583523) CREATININE (test code = 0.44 mg/dL 0.5-1.04 L 1253718888) TOTAL BILI (test code = 0.4 mg/dL 0.1-1.2 5431033182) CALCIUM (test code = 8.9 mg/dL 8.6-10.6 0579807640) T PROTEIN (test code = 7.1 g/dL 6.3-8.2 2922422632) ALBUMIN (test code = 4.1 g/dL 3.5-5 7601270705) ALK PHOS (test code = 63 U/L 34-122 7149219585) ALTv (test code = 14 U/L 5-35 1742-6) AST(SGOT) (test code = 19 U/L 13-40 1359246779) eGFR Calculation mL/min/1.73m2 (Non-) (test code = 2252885455) eGFR Calculation mL/min/1.73m2 () (test code = 2489964450) JULIANNA (test code = JULIANNA) Association of Glomerular Filtration Rate (GFR) and Staging of Kidney Disease* + --+ --+ ------+| GFR (mL/min/1.73 m2) ?| With Kidney Damage ?| ?Without Kidney Damage+ --------+ --------+ +| ?>90 ?| ?Stage one ?| ? Normal ?+ ---+ ---+ -------+| ?60-89 ?| ?Stage two ?| ? Decreased GFR ? + --+ --+ ------+| ?30-59 ?| ?Stage three ?| ? Stage three ? + --+ --+ ------+| ?15-29 ?| ?Stage four ? | ? Stage four ?+ ---+ ---+ -------+| ?<15 (or dialysis) ? ?| ?Stage five ? | ? Stage five ?+ ---+ ---+ -------+ *Each stage assumes the associated GFR level has been in effect for at least three months. ?Stages 1 to 5, with or without kidney disease, indicate chronic kidney disease. Notes: Determination of stages one and two (with eGFR >59mL/min/1.73 m2) requires estimation of kidney damage for at least three months as defined by structural or functional abnormalities of the kidney, manifested by either:Pathological abnormalities or Markers of kidney damage (including abnormalities in the composition of the blood or urine or abnormalities in imaging tests). Lab Interpretation Abnormal (test code = 19831-5) [facility]TOTAL CHOLESTEROL, TRIGLYCERIDES, HDL)2019-10-05 16:55:00 Test Item Value Reference Range Interpretation Comments CHOL (test code = 206 mg/dL 120-200 H 2137179670) HDL (test code = 46 mg/dL >50 L 5991527252) HDLC RATIO (test code = See_Comment [Au tomated message] 1293864542) The system [employer] generated this result transmit geronimo reference range : <=4.5. The refe rence range was not u sed to interpret th is result as normal/abnormal . TRIG (test code = 109 mg/dL 30-170 1250347050) LDL CHOL (test code = 138 mg/dL See_Comment [Auto mated message] 15912-1) The system [employer] generated this result transmit geronimo reference range : <=160. The refe rence range was not u sed to interpret th is result as normal/abnormal . VLDL (test code = 22 mg/dL 5-60 4522821412) Lab Interpretation (test Abnormal code = 29124-2) [facility] [id number] 17:15:00 Test Item Value Reference Range Interpretation Comments APPEARANCE (test code Slightly Hazy Clear A = 3986294437) COLOR (test code = Yellow Yellow 1020915043) PH (test code = 4.8-8.0 3547838680) SP GRAVITY (test code 1.003-1.030 = 1225019779) GLU U QUAL (test code Negative Negative = 0343185603) BLOOD (test code = Trace Negative A 4075430870) KETONES (test code = Negative Negative 8097411361) PROTEIN (test code = Negative Negative 2887-8) UROBILIN (test code = 0.2 mg/dL See_Comment [Auto mated 3950952008) message] The system which generated this result transmit geronimo reference range : 0-1.0 mg/dL. Th e reference range was not used to interpret this result as normal/abnormal . BILIRUBIN (test code = Negative Negative 3693066836) NITRITE (test code = Negative Negative 6227352277) LEUK ANUEL (test code Negative Negative = 2768563475) RBC/HPF (test code = See_Comment [Autom ated 3518990527) message] The system which generated this result transmit geronimo reference range : 0 - 3 HPF. The reference range was not used to interpret this result as normal/abnormal . WBC/HPF (test code = See_Comment [Autom ated 5949286060) message] The system which generated this result transmit geronimo reference range : 0 - 5 HPF. The reference range was not used to interpret this result as normal/abnormal . BACTERIA (test code = Moderate Negative A 5065649029) MUCOUS (test code = Marked Negative LPF A 8096251787) AMORPHOUS (test code = Few HPF 3855508564) SQ EPITH (test code = HPF 0629339650) Lab Interpretation Abnormal (test code = 03190-4) [facility] [id number] 17:05:00 Test Item Value Reference Range Interpretation Comments TSH (test code = See_Comment [Automated message] 7160872317) The system [employer] generated this result transmitted ref erence range: 0.45 - 4 .70 mIU/L. The refe rence range was not u sed to interpret this result as normal/abnor mal. Lab Interpretation (test Normal code = 06569-6) [facility] (97180)(TOTAL CHOLESTEROL, TRIGLYCERIDES, HDL)2019-04-09 16:40:00 Test Item Value Reference Range Interpretation Comments CHOL (test code = 181 mg/dL 120-200 7010535453) HDL (test code = 45 mg/dL >50 L 0834266642) HDLC RATIO (test code = See_Comment [Au tomated message] 9958342947) The system [employer] generated this result transmit geronimo reference range : <=4.5. The refe rence range was not u sed to interpret th is result as normal/abnormal . TRIG (test code = 160 mg/dL 30-170 5769598283) LDL CHOL (test code = 104 mg/dL See_Comment [Auto mated message] 92676-8) The system [employer] generated this result transmit geronimo reference range : <=160. The refe rence range was not u sed to interpret th is result as normal/abnormal . VLDL (test code = 32 mg/dL 5-60 4091930528) Lab Interpretation (test Abnormal code = 34258-4) [facility] (60627)2019-04-09 16:39:00 Test Item Value Reference Range Interpretation Comments NA (test code = 143 mmol/L 135-145 2536028910) K (test code = 4.1 mmol/L 3.5-5 8230328963) CL (test code = 108 mmol/L 98-108 8714758939) CO2 TOTAL (test code = 28 mmol/L 23-31 9374783386) AGAP (test code = 2-16 0198938092) BUN (test code = 12 mg/dL 7-23 5604375907) GLUCOSE (test code = 116 mg/dL 70-110 H 4539902943) CREATININE (test code = 0.45 mg/dL 0.5-1.04 L 9695257447) TOTAL BILI (test code = 0.4 mg/dL 0.1-1.9 3800344679) CALCIUM (test code = 9.0 mg/dL 8.6-10.6 3519242609) T PROTEIN (test code = 6.9 g/dL 6.3-8.2 4497032821) ALBUMIN (test code = 4.1 g/dL 3.5-5 2856403353) ALK PHOS (test code = 68 U/L 34-122 9644571434) ALT(SGPT) (test code = 19 U/L 9-51 9612562792) AST(SGOT) (test code = 17 U/L 13-40 3620009716) eGFR Calculation mL/min/1.73m2 (Non-) (test code = 2976037527) eGFR Calculation mL/min/1.73m2 () (test code = 2810720933) JULIANNA (test code = JULIANNA) Association of Glomerular Filtration Rate (GFR) and Staging of Kidney Disease*+ + + +| GFR (mL/min/1.73 m2)?| With Kidney Damage?|?Without Kidney Damage+ --------+ --------+ +|?>90?|?S calliee one?|? Normal?+ ---------+ ---------+ +|?60-89? |?Stage two?|? Decreased GFR? + --+ --+ ------+|?30-59?|?Stage three?|? Stage three? + --+ --+ ------+|?15-29?|?Stage four? |? Stage four?+ -------+ -------+ +|?<15 (or dialysis)?|?Stage five? |? Stage five?+ -------+ -------+ +*Each stage assumes the associated GFR level has been in effect for at least three months.?Stages 1 to 5, with or without kidney disease, indicate chronic kidney disease.Notes: Determination of stages one and two (with eGFR >59mL/min/1.73 m2) requires estimation of kidney damage for at least three months as defined by structural or functional abnormalities of the kidney, manifested by either:Pathological abnormalities or Markers of kidney damage (including abnormalities in the composition of the blood or urine or abnormalities in imaging tests). Lab Interpretation Abnormal (test code = 98650-3) [facility] WITH [id number] 15:56:00 Test Item Value Reference Range Interpretation Comments WBC (test code = See_Comment [Automated message] 4290-2) The system [employer] generated this result transmitted ref erence range: 4.30 - 1 1.10 10*3/?L. The re ference range was not u sed to interpret this result as normal/abnor mal. RBC (test code = See_Comment [Automated message] 409-8) The system [employer] generated this result transmitted ref erence range: 3.93 - 5 .25 10*6/?L. The re ference range was not u sed to interpret this result as normal/abnor mal. HGB (test code = 12.0 g/dL 11.6-15 718-7) HCT (test code = 37.0 % 35.7-45.2 4544-3) MCV (test code = 86.7 fL 80.6-95.5 787-2) MCH (test code = 28.1 pg 25.9-32.8 785-6) MCHC (test code = 32.4 g/dL 31.6-35.1 786-4) RDW-SD (test code 44.4 fL 39-49.9 = 36047-5) RDW-CV (test code 14.0 % 12-15.5 = 788-0) PLT (test code = See_Comment [Automated message] 557-3) The system [employer] generated this result transmitted ref erence range: 166 - 35 8 10*3/?L. The re ference range was not u sed to interpret this result as normal/abnor mal. MPV (test code = 11.0 fL 9.5-12.9 78824-0) NRBC/100 WBC (test See_Comment [Automat ed message] code = 1884479882) The syste m which generated this result transmitted ref erence range: 0.0 - 10 .0 /100 WBCs. The refer ence range was not u sed to interpret this result as normal/abnor mal. NRBC x10^3 (test <0.01 See_Comment [Automated message] code = 6140952019) The syste m which generated this result transmitted ref erence range: 10*3/?L. The reference range was not used to interpr et this result as normal/abnormal . GRAN MAT (NEUT) % 58.9 % (test code = 770-8) IMM GRAN % (test 0.50 % code = 5821269580) LYMPH % (test code 30.1 % = 736-9) MONO % (test code 7.6 % = 5905-5) EOS % (test code = 2.3 % 713-8) BASO % (test code 0.6 % = 706-2) GRAN MAT 5.57 10*3/uL 1.88-7.09 x10^3(ANC) (test code = 5616906470) IMM GRAN x10^3 0.05 10*3/uL 0-0.06 (test code = 5885971201) LYMPH x10^3 (test 2.85 10*3/uL 1.32-3.29 code = 731-0) MONO x10^3 (test 0.72 10*3/uL 0.33-0.92 code = 742-7) EOS x10^3 (test 0.22 10*3/uL 0.03-0.39 code = 711-2) BASO x10^3 (test 0.06 10*3/uL 0.01-0.07 code = 704-7) [facility]"
[2021-08-16] MEDS ORDERED: MORPHINE 4 MG/ML SYR ONE (15:40)
[2021-08-16] MEDS ORDERED: NA CHLORIDE 0.9% 1,000 ML ONE (15:40)
[2021-08-16] MEDS ORDERED: ONDANSETRON 4 MG/2 ML VIAL ONE (15:40)
[2021-08-16 15:51] LABS: Urine Blood 1+ (Negative); Urine Glucose Negative (Negative); Urine Protein Negative (Negative); Urine Specific Gravity >=1.030 (1.005-1.030)
[2021-08-16 15:54] LABS: Absolute Lymphocytes (CBC) 0.9 K/uL (0.7-4.9); Basophils % 0.3 % (0-1.3); Hematocrit 38.3 % (36.0-45.0); Lymphocytes % 5.7 % (15.3-44.8); MPV 8.5 fL (7.6-11.3); RBC Red Blood Cell Count 4.55 M/uL (3.86-4.86)
[2021-08-16 16:10] LABS: ALT/SGPT 25 U/L (12-78); AST/SGOT 18 U/L (15-37); Albumin 3.3 g/dL (3.4-5.0); Alkaline Phosphatase 71 U/L (45-117); BUN Blood Urea Nitrogen 12 mg/dL (7-18); Bicarbonate 23 mmol/L (21-32); Bilirubin Direct 0.1 mg/dL (0-0.2); Bilirubin Total 0.6 mg/dL (0.2-1.0); Glucose Level 122 mg/dL (74-106); Lipase 278 U/L (73-393); Potassium 3.8 mmol/L (3.5-5.1); Protein, Total 7.1 g/dL (6.4-8.2); Sodium Level 140 mmol/L (136-145)
--- NOTE | 2021-08-16 16:51 | RAD REPORT ---
EXAM DESCRIPTION: CT - Abdomen Pelvis W Contrast - 08/16/2021 4:30 pm CLINICAL HISTORY: ABD PAIN COMPARISON: No comparisons TECHNIQUE: Biphasic, helical CT imaging of the abdomen and pelvis was performed following 100 ml non -ionic IV contrast. No oral contrast administered. All CT scans are performed using dose optimization technique as appropriate and may include automated exposure control or mA/KV adjustment according to patient size. FINDINGS: No suspicious findings in the lung bases. The liver, spleen, and pancreas show no suspicious findings. Cholecystectomy clips are present with n o biliary tree dilatation. Symmetric renal function is seen with no hydronephrosis or suspicious renal mass. No pyelonephritis o r acute parenchymal process. No bladder abnormalities. No adrenal abnormalities. Uterus and ovaries s how no suspicious findings. Fluid-filled stomach shows no wall thickening or mass. Duodenum is unremarkable. Multiple loops of je junum are distended without an obstructing mass or point of transition. Small mesenteric lymph nodes are present in the central abdomen. Distal small bowel is normal in size. Appendix is normal. No acut e colon finding identified. No free air, free fluid or pneumatosis. No hernia, mass or bulky lymphadenopathy. No suspicious bony findings. IMPRESSION: Multiple prominent loops of jejunum favoring ileus or enteritis over bowel obstruction. No appendicitis, free air, abscess or other surgically emergent finding.
[2021-08-16] MEDS ORDERED: DICYCLOMINE HCL 10 MG CAP ONE (17:53)
[2021-08-16] MEDS ORDERED: CIPROFLOXACIN 400mg IV 400 MG/200 ML BAG IV ONE (17:54)
--- NOTE | 2021-08-16 18:12 | EDPHYS ---
Physician Documentation [facility] Name: Sai Mcintosh Age: 51 yrs Sex: Female : 1970 Arrival Date: 08/16/2021 Time: 14:10 Bed 17 Private MD: ED Physician Homer Remy HPI: 08/16 15:26 This 51 yrs old Female presents to ER via Ambulatory with complaints of L side pm1 Abd Pain. 15:26 The patient presents with abdominal pain in the left upper quadrant. pm1 15:26 Onset: The symptoms/episode began/occurred this morning. The symptoms do not radiate. pm1 Associated signs and symptoms: Pertinent positives: nausea, Pertinent negatives: diarrhea, dysuria, fever, vomiting. The symptoms are described as constant, crampy. Modifying factors: The symptoms are alleviated by nothing, the symptoms are aggravated by nothing. Severity of pain: in the emergency department the pain is actually worse. The patient has not experienced similar symptoms in the past. The patient has not recently seen a physician. 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 - Social history:: Smoking status: Patient denies any tobacco usage or history of. ROS: 15:26 Constitutional: Negative for fever, chills, and weight loss, Cardiovascular: Negative pm1 for chest pain, palpitations, and edema, Respiratory: Negative for shortness of breath, cough, wheezing, and pleuritic chest pain. 15:26 Back: Negative for injury and pain, MS/Extremity: Negative for injury and deformity, Skin: Negative for injury, rash, and discoloration, Neuro: Negative for headache, weakness, numbness, tingling, and seizure. 15:26 Abdomen/GI: Positive for abdominal pain, nausea, of the left upper quadrant, Negative for vomiting, diarrhea, constipation. 15:26 All other systems are negative. Exam: 15:26 Constitutional: This is a well developed, well nourished patient who is awake, alert, pm1 and in no acute distress. Head/Face: Normocephalic, atraumatic. 15:26 Back: No spinal tenderness. No costovertebral tenderness. Full range of motion. Skin: Warm, dry with normal turgor. Normal color with no rashes, no lesions, and no evidence of cellulitis. MS/ Extremity: Pulses equal, no cyanosis. Neurovascular intact. Full, normal range of motion. 15:26 Eyes: Exam is negative for acute changes. 15:26 ENT: Exam is negative for acute changes, Mouth: Lips: normal, moist, Oral mucosa: normal, pink and intact, moist. 15:26 Cardiovascular: Exam negative for acute changes, Rate: normal, Rhythm: regular, Pulses: no pulse deficits are appreciated. 15:26 Respiratory: Exam negative for acute changes, respiratory distress, shortness of breath. 15:26 Abdomen/GI: Inspection: obese Palpation: soft, in all quadrants, mild abdominal tenderness, in the left upper quadrant. 15:26 Neuro: Exam negative for acute changes, Orientation: is normal, Mentation: is normal, Motor: moves all fours. Vital Signs: 14:31 BP 108 / 74; Pulse 90; Resp 18; Temp 98.0; Pulse Ox 100% ; Weight 99.79 kg; Height 5 vg1 ft. 4 in. (162.56 cm); Pain 9/10; 15:17 BP 118 / 74; Pulse 93; Resp 17 S; Pulse Ox 98% on R/A; jg9 16:42 BP 121 / 95; Pulse 90; Resp 16 S; Pulse Ox 99% on R/A; jg9 18:30 BP 118 / 68; Pulse 88; Resp 16 S; Pulse Ox 98% on R/A; jg9 14:31 Body Mass Index 37.76 (99.79 kg, 162.56 cm) vg1 MDM: 15:19 Patient medically screened. pm1 17:19 Data reviewed: vital signs. Data interpreted: Pulse oximetry: on room air is 99 %. pm1 Interpretation: normal. 17:19 Counseling: I had a detailed discussion with the patient and/or guardian regarding: the pm1 historical points, exam findings, and any diagnostic results supporting the discharge/admit diagnosis, lab results, radiology results, the need for outpatient follow up, to return to the emergency department if symptoms worsen or persist or if there are any questions or concerns that arise at home. 08/16 15:19 Order name: Basic Metabolic Panel; Complete Time: 16:12 pm1 08/16 15:19 Order name: CBC with Diff; Complete Time: 15:55 pm1 08/16 15:19 Order name: Hepatic Function; Complete Time: 16:12 pm1 08/16 15:19 Order name: Lipase; Complete Time: 16:12 pm1 08/16 15:34 Order name: CT Abd/Pelvis - IV Contrast Only; Complete Time: 16:56 pm1 08/16 15:50 Order name: Urine Dipstick-Ancillary; Complete Time: 15:55 EDMS 08/16 15:19 Order name: IV Saline Lock; Complete Time: 15:36 pm1 08/16 15:19 Order name: Labs collected and sent; Complete Time: 15:36 pm1 08/16 15:19 Order name: Urine Dipstick-Ancillary (obtain specimen); Complete Time: 16:27 pm1 08/16 16:15 Order name: Urine Test (obtain specimen); Complete Time: 16:26 pm1 Administered Medications: 15:50 Drug: morphine 4 mg Route: IVP; Site: right antecubital; 6 16:15 Follow up: Response: No adverse reaction; Pain is decreased jg9 15:50 Drug: Zofran (Ondansetron) 4 mg Route: IVP; Site: right antecubital; jh6 16:00 Follow up: Response: Nausea is decreased jg9 15:51 Drug: NS 0.9% 1000 ml Route: IV; Rate: 1000 ml; Site: right antecubital; jh6 17:59 Drug: Bentyl (dicyclomine) 20 mg Route: PO; jh6 18:15 Follow up: Response: No adverse reaction; Pain is decreased j9 18:00 Drug: Cipro (ciprofloxacin) 400 mg Volume: 200 ml; Route: IVPB; Infused Over: 60 mins; 6 Site: right antecubital; 18:59 Follow up: IV Status: Completed infusion; IV converted to saline lock; IV Intake: 200ml jg9 19:10 Follow up: IV Status: Completed infusion j9 18:15 Drug: Flagyl (metroNIDAZOLE) 500 mg Route: PO; jg9 19:02 Follow up: Response: No adverse reaction jg9 Disposition Summary: 08/16/21 18:11 Discharge Ordered Location: Home pm1 Problem: new pm1 Symptoms: have improved pm1 Condition: Stable pm1 Diagnosis - Gastroenteritis pm1 Followup: pm1 - With: Emergency Department - When: As needed - Reason: Worsening of condition Followup: pm1 - With: Private Physician - When: 2 - 3 days - Reason: Recheck today's complaints, Continuance of care, Re-evaluation by your physician Discharge Instructions: - Discharge Summary Sheet pm1 - Abdominal Pain, Adult pm1 - Nausea and Vomiting, Adult pm1 - Diarrhea, Adult pm1 Forms: - Medication Reconciliation Form pm1 - Thank You Letter pm1 - Antibiotic Education pm1 - Prescription Opioid Use pm1 Prescriptions: - Flagyl 500 mg Oral Tablet - take 1 tablet by ORAL route every 8 hours for 10 days; 30 tablet; Refills: 0, pm1 Product Selection Permitted - ondansetron 4 mg Oral tablet,disintegrating - place 1 tablet by TRANSLINGUAL route every 8 hours As needed; 12 tablet; pm1 Refills: 0, Product Selection Permitted - Cipro 500 mg Oral Tablet - take 1 tablet by ORAL route every 12 hours for 10 days; 20 tablet; Refills: 0, pm1 Product Selection Permitted - dicyclomine 20 mg Oral Tablet - take 1 tablet by ORAL route 4 times per day As needed; 20 tablet; Refills: 0, pm1 Product Selection Permitted Addendum: 08/19/2021 22:43 Co-signature as Attending Physician, Homer Remy MD I agree with the assessment and r n plan of care. Attestation: The patient's history, exam findings, diagnostics, and a summary of any interventions or procedures was reviewed in detail with Homer Remy MD. Signatures: Dispatcher [employer] EDHomer Duran MD MD rn Marinas, Patrick, TOOTH CLERK TOOTH CLERK pm1 Lynne Mejia RN RN vg1 Shalonda Camarillo RN RN jh6 Shalonda Tolentino jg9
--- NOTE | 2021-08-16 18:12 | ER ---
Nurse's Notes [facility] Name: Sai Mcintosh Age: 51 yrs Sex: Female : 1970 Arrival Date: 08/16/2021 Time: 14:10 Bed 17 Private MD: Diagnosis: Gastroenteritis Presentation: 08/16 14:31 Chief complaint: Patient states: Left flank, LUQ, and Epigastric pain began this vg1 morning at 0745. States nausea, denies vomiting or burning upon urination. Coronavirus screen: Vaccine status: Patient reports receiving the 2nd dose of the covid vaccine. Client denies travel out of the [place] in the last 14 days. Ebola Screen: Patient negative for fever greater than or equal to 101.5 degrees Fahrenheit, and additional compatible Ebola Virus Disease symptoms. Initial Sepsis Screen: Does the patient meet any 2 criteria? No. Patient's initial sepsis screen is negative. Does the patient have a suspected source of infection? No. Patient's initial sepsis screen is negative. Risk Assessment: Do you want to hurt yourself or someone else? Patient reports no desire to harm self or others. Onset of symptoms was August 16, 2021. 14:31 Method Of Arrival: Ambulatory vg1 14:31 Acuity: BALAJI 3 vg1 Triage Assessment: 14:33 General: Appears in no apparent distress. uncomfortable, Behavior is cooperative. Pain: vg1 Complains of pain in epigastric area and left upper quadrant and left flank Pain currently is 9 out of 10 on a pain scale. Noted to be crying, grimacing, guarding, Also complains of nausea. 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 - Social history:: Smoking status: Patient denies any tobacco usage or history of. Screenin:01 Abuse screen: Denies threats or abuse. Denies injuries from another. Nutritional jg9 screening: No deficits noted. Tuberculosis screening: No symptoms or risk factors identified. Fall Risk None identified. Assessment: 15:30 General: Appears in no apparent distress. Behavior is calm, cooperative, appropriate jg9 for age. Pain: Complains of pain in abdomen-left upper abd/flank pain Pain currently is 9 out of 10 on a pain scale. 15:30 Neuro: No deficits noted. Cardiovascular: No deficits noted. Respiratory: No deficits jg9 noted. GI: Reports upper abdominal pain, vomiting. : No deficits noted. EENT: No deficits noted. Derm: No deficits noted. Musculoskeletal: No deficits noted. 16:42 Reassessment: Patient states feeling better. Patient states symptoms have improved. jg9 Vital Signs: 14:31 BP 108 / 74; Pulse 90; Resp 18; Temp 98.0; Pulse Ox 100% ; Weight 99.79 kg; Height 5 vg1 ft. 4 in. (162.56 cm); Pain 9/10; 15:17 BP 118 / 74; Pulse 93; Resp 17 S; Pulse Ox 98% on R/A; jg9 16:42 BP 121 / 95; Pulse 90; Resp 16 S; Pulse Ox 99% on R/A; jg9 18:30 BP 118 / 68; Pulse 88; Resp 16 S; Pulse Ox 98% on R/A; jg9 14:31 Body Mass Index 37.76 (99.79 kg, 162.56 cm) vg1 ED Course: 14:10 Patient arrived in ED. ds1 14:33 Triage completed. vg1 14:33 Arm band placed on. vg1 15:19 Mahamed Ortiz NP is PHCP. pm1 15:19 Homer Remy MD is Attending Physician. pm1 15:45 Basic Metabolic Panel Sent. mh5 15:45 CBC with Diff Sent. mh5 15:45 Hepatic Function Sent. mh5 15:45 Lipase Sent. mh5 15:46 Patient has correct armband on for positive identification. Bed in low position. Call 5 light in reach. Side rails up X 1. Warm blanket given. Pulse ox on. NIBP on. 15:50 Inserted saline lock: 22 gauge antecubital area, using aseptic technique. jg9 15:59 Inserted saline lock:. jh6 16:26 Urine collected: clean catch specimen, clear, poc-negative for preg. jg9 16:29 CT Abd/Pelvis - IV Contrast Only In Process Unspecified. EDMS 16:41 No apparent distress. Resting quietly. Awaiting radiology results. Pt visited by jg9 . 17:35 Urine collected: clean catch specimen. [facility] 19:02 IV discontinued, intact, bleeding controlled, No redness/swelling at site. Pressure j9 dressing applied. 19:04 No provider procedures requiring assistance completed. jg9 Administered Medications: 15:50 Drug: morphine 4 mg Route: IVP; Site: right antecubital; [facility] 16:15 Follow up: Response: No adverse reaction; Pain is decreased j9 15:50 Drug: Zofran (Ondansetron) 4 mg Route: IVP; Site: right antecubital; [facility] 16:00 Follow up: Response: Nausea is decreased j9 15:51 Drug: NS 0.9% 1000 ml Route: IV; Rate: 1000 ml; Site: right antecubital; [facility] 17:59 Drug: Bentyl (dicyclomine) 20 mg Route: PO; [facility] 18:15 Follow up: Response: No adverse reaction; Pain is decreased j9 18:00 Drug: Cipro (ciprofloxacin) 400 mg Volume: 200 ml; Route: IVPB; Infused Over: 60 mins; [facility] Site: right antecubital; 18:59 Follow up: IV Status: Completed infusion; IV converted to saline lock; IV Intake: 200ml j9 19:10 Follow up: IV Status: Completed infusion [facility] 18:15 Drug: Flagyl (metroNIDAZOLE) 500 mg Route: PO; [facility] 19:02 Follow up: Response: No adverse reaction j9 Intake: 18:59 IV: 200ml; Total: 200ml. jg9 Outcome: 18:11 Discharge ordered by . pm1 19:09 Discharged to home ambulatory. j9 19:09 Condition: stable 19:09 Discharge instructions given to patient, Instructed on discharge instructions, follow up and referral plans. Demonstrated understanding of instructions, follow-up care, Prescriptions given X 4. 19:09 Patient left the ED. jg9 Signatures: Dispatcher [facility] Kaitlin Laguna Mahamed Dennis, [employer] COLLEGE PHYSICS INSTRUCTOR pm1 Capri Walsh 5 Lynne Mejia, RN RN 1 Shalonda Camarillo RN RN 6 Shalonda Tolentino jg9 Corrections: (The following items were deleted from the chart) 16:28 15:55 BP 115 / 70; Pulse 91bpm; Resp 17bpm; Spontaneous; Pulse Ox 97% RA; jg9 jg9
[2021-08-16] MEDS ORDERED: metroNIDAZOLE 500 MG TABLET ONE (18:14)
[2021-08-16 19:31] VITALS: TEMP 98
[2021-08-16 19:36] VITALS: BP 118/68; O2SAT 98
== END 2021-08-16 19:09 | disposition home or self-care (01) ==
LOC: ER 14:09
DX: K52.9 Noninfective gastroenteritis and colitis, unspecified (principal)
CPT/HCPCS: 96365; 85025; 80048; 36415; 82565; 80076; 81003; 83690; 74177; 96375; 99284; Q9967; J7030; J2405; J0744